=== PATIENT | female | born 1970 | race Caucasian/White ===

== ENCOUNTER 2016-09-01 00:49 | Inpatient (IN) | payer OTHER ==
[~2016-09-01] VITALS: Ht 152.4 cm; Wt 177.3 kg
[~2016-09-01 00:49] MED LIST: 24 HOUR ALLER15.8 ML BOTH NARES; ADVAIR 500/501 DISK IH; ALBUTEROL SULF8.5 GM IH; ALBUTEROL17 GM IH; AMITRIPTYLINE H50 MG PO; AMOX TR-K CLV1 EAC4 PO; ASPIR 8181 M1 PO; ASPIRIN325 MG PO; ATORVASTATIN CA40 MG PO; ATROVENT 00.5 MG/2.5 IH; AUGMENTIN875 MG PO; AZITHROMYCIN500 M1 PO; BETIMOL 0.100 DROP/5 BOTH EYES; BISAC-EVAC10 MG PR; BRILINTA90 MG PO; BUSPAR10 MG PO; BUSPIRONE HCL10 MG PO; Bactroban Nasal Oint BOTH NARES; CEFTIN500 MG PO; CEFUROXIME500 MG PO; COUMADIN PO; COUMADIN1 MG; COUMADIN1 MG PO; COUMADIN2 MG PO; COUMADIN4 MG PO; COUMADIN5 MG PO; COUMADIN6 MG PO; COUMADIN7.5 MG PO; CRANBERRY 4001 EAC1 PO; CRANBERRY250 MG PO; CRANBERRY300 MG PO; CRANBERRY500 M2 PO; CRANBERRY500 MG PO; Coumadin Daily Dose PO; DAILY VALUE1 EACH PO; DAILY VITAMIN1 EAC8 PO; DAILY VITE1 EAC1 PO; DELTASONE20 M1 PO; DIAZEPAM2 MG PO; DUONEB 2.5-0.5 M3 ML AEROSOL; DUONEB 2.5-0.5 M3 ML IH; EFFEXOR XR PO; EFFEXOR XR150 MG PO; EFFEXOR25 MG PO; ELAVIL50 MG PO; ENDOCET 5-3251 EACH PO; EYE DROPS BOTH EYES; Elavil PO; FISH OIL 1,0001 EAC7 PO; FLEET ENEMA-AD118 ML PR; FLONASE16 G1 BOTH NARES; FLONASE16 GM NS; FLOVENT 11120 INHALA IH; FLOVENT 11120 INHALA NS; FLUTICASONE NS; FUROSEMIDE40 MG PO; GABAPENTIN300 MG PO; GLIPIZIDE XL10 MG PO; GLIPIZIDE10 MG PO; GLIPIZIDE5 MG; GLUCOTROL XL10 MG PO; GLUCOTROL5 MG PO; Glucophage PO; IMMODIUM AD PO; IMODIUM A-1 MG/7.5 M PO; IMODIUM A-D2 MG PO; JANUVIA25 M1 PO; K-DUR20 MEQ PO; K-Dur PO; K-Lor,Klor-Con PO; KLOR-CON 1010 ME1 PO; KLOR-CON M2020 MEQ PO; Keflex PO; LASIX40 MG PO; LASIX80 MG PO; LATANOPROST2.5 ML BOTH EYES; LEVEMIR100 UNIT/2 SC; LEVOTHROID200 MCG PO; LEVOTHYROXINE200 MC1 PO; LO-DOSE ASPIRIN81 M1 PO; LOPRESSOR25 MG PO; LOSARTAN POTASS25 MG PO; LOVENOX100 MG/1 M SC; LOVENOX40 MG/0.4 SC; LOVENOX80 MG/0.8 SC; Lasix PO; Levothroid,Synthroid PO; MEGACE20 MG PO; MEGACE40 M1 PO; MEGESTROL ACETA20 MG PO; MEGESTROL ACETA40 MG PO; MILK OF MAGN PO; MOBIC7.5 MG PO; MOTRIN800 MG PO; MULTI-VITAMIN1 EAC4 PO; MULTIVITAMIN PO; MULTIVITAMIN1 EAC2 PO; Megace PO; Motrin PO; NAPROSYN500 MG PO; NAPROXEN500 MG PO; NEOSPORIN + P28.3 GM TP; NEURONTIN300 MG PO; NEURONTIN400 MG PO; NOVOLOG PE100 UNITS/ SC; OMEPRAZOLE20 MG PO; OMEPRAZOLE40 M1 PO; OMNICEF300 MG PO; OXYCODONE-ACET1 EACH PO; PERCOCET 5/31 TABLET PO; PREDNISONE10 MG PO; PREDNISONE20 MG PO; PREDNISONE50 MG PO; PRILOSEC20 MG PO; PRILOSEC40 MG PO; PROAIR HFA8.5 GM IH; PROVENTIL HFA6.7 GM IH; PROVENTIL,2.5 MG/0.5 IH; PROVENTIL,2.5 MG/3 M IH; PROVENTIL2.5 MG/3 M IH; Percocet 5/325,Endoc PO; PriLOSEC PO; Proventil,Ventolin H IH; QUETIAPINE FUMA50 MG PO; REQUIP2 MG PO; REQUIP5 MG; Requip PO; ST. JOSEPH ASPI81 MG PO; SUPER B-50 COM1 EACH PO; SYNTHROID200 MCG PO; THERAGRAN1 TABLET PO; TIMOLOL 0.5%; TIMOLOL 0.5% BOTH EYES; TOPAMAX100 MG PO; TOPAMAX25 MG PO; TOPIRAMATE100 MG PO; Topamax PO; Tylenol Regular Stre PO; VALIUM2 MG PO; VALIUM5 MG PO; VENLAFAXINE HC150 M1 PO; VENTOLIN HFA18 GM IH; VITAMIN C250 MG PO; WARFARIN SODIUM1 MG PO; WARFARIN SODIUM5 MG PO; XALATAN2.5 ML BOTH EYES; ZITHROMAX Z-PA250 MG PO; predniSONE PO
[2016-09-01 02:22] LABS: HEMATOCRIT 39.7 % (36.0-46.0); MCH 28.4 PG (29.0-34.0); MCHC 30.7 G/DL (30.0-36.0); MCV 92.5 FL (83-99); MEAN PLAT.VOLUME 10.5 uM^3 (9.5-12.4); PLATELET COUNT 290 K/uL (156-360); RBC DIS.WIDTH-CV 14.3 % (11.8-14.6); RBC DIS.WIDTH-SD 46.5 % (39-53); RED BLOOD COUNT 4.29 M/uL (3.80-5.20); WHITE BLOOD COUNT 13.3 K/uL (4.1-10.2)
[2016-09-01 02:28] LABS: CHLORIDE 94 mEq/L (99-109); POTASSIUM 3.9 mEq/L (3.7-5.4); SODIUM 141 mEq/L (136-147)
[2016-09-01 02:29] LABS: GLUCOSE 205 mg/dL (70-99)
[2016-09-01 02:31] LABS: ANION GAP 12 MEQ/L (2-14)
[2016-09-01 02:33] LABS: GFR ESTIMATE (CALCULATED) > 59 mL/min/
[2016-09-01 02:34] LABS: UREA NITROGEN (BUN) 12 mg/dL (9-23)
[2016-09-01 02:37] LABS: INTER. NORMALIZED RATIO 6.1; PROTHROMBIN TIME 65.3 (9.2-11.2); PTT 59.2 (25-32)
[2016-09-01 02:39] LABS: TROP-I INTERPRETATION NEGATIVE; TROPONIN-I < 0.01 ng/mL (0.0-0.30)
[2016-09-01 02:41] LABS: QUANTITATIVE HCG < 4.0 MIU/ML
[2016-09-01 07:27] LABS: EOSINOPHIL (%) 0.3 % (0-5); HEMATOCRIT 37.6 % (36.0-46.0); IMMATURE GRANULOCYTE (%) 0.5 % (0.0-0.7); IMMATURE GRANULOCYTE COUNT 0.6 K/uL; LYMPHOCYTE COUNT 1.6 K/uL (1.0-2.8); MCH 28.3 PG (29.0-34.0); MCHC 30.6 G/DL (30.0-36.0); MCV 92.4 FL (83-99); MONOCYTE (%) 6.4 % (3-12); MONOCYTE COUNT 0.8 K/uL (0-0.8); NEUTROPHIL (%) 80.3 % (45-76); NEUTROPHIL COUNT 10.2 K/uL (1.8-6.4); PLATELET COUNT 250 K/uL (156-360); RBC DIS.WIDTH-CV 14.5 % (11.8-14.6); RBC DIS.WIDTH-SD 47.2 % (39-53); RED BLOOD COUNT 4.07 M/uL (3.80-5.20); WHITE BLOOD COUNT 12.6 K/uL (4.1-10.2)
[2016-09-01 08:11] LABS: ANION GAP 9 MEQ/L (2-14); CHLORIDE 97 MEQ/L (99-109); POTASSIUM 4.5 MEQ/L (3.7-5.4); SAMPLE HEMOLYSIS CHECK 2; SAMPLE ICTERIC CHECK 0; SAMPLE LIPEMIA CHECK 0; SODIUM 139 MEQ/L (136-147); TOTAL BILIRUBIN 0.4 MG/DL (0.0-1.0)
[2016-09-01 08:17] LABS: ALKALINE PHOSPHATASE 89 IU/L (3-129); GFR ESTIMATE (CALCULATED) > 59 mL/min/; GLUCOSE 212 mg/dL (70-99); UREA NITROGEN (BUN) 13 mg/dL (9-23)
[2016-09-01 08:32] LABS: POINT-OF-CARE METER ID UU13113807
[2016-09-01] MEDS ORDERED: ATROVENT 00.5 MG/2.5 IH (11:32)
[2016-09-01 11:46] VITALS: BP 98/54
[2016-09-01 11:48] LABS: POINT-OF-CARE METER ID UU13113807
[2016-09-01 15:53] VITALS: BP 104/64
[2016-09-01 20:13] LABS: POINT-OF-CARE METER ID UU13113807
[2016-09-01 21:24] VITALS: BP 101/58
[2016-09-02] VITALS (11 sets, daily range): BP systolic 82–163; BP diastolic 48–89
[2016-09-02 01:17] LABS: INFLUENZA A VIRAL ANTIGEN NEGATIVE; INFLUENZA B VIRAL ANTIGEN NEGATIVE
[2016-09-02 06:58] LABS: PROTHROMBIN TIME 69.2 (9.2-11.2)
[2016-09-02 07:22] LABS: INTER. NORMALIZED RATIO 6.4
[2016-09-02 08:11] LABS: POINT-OF-CARE METER ID UU13113807
[2016-09-02 11:43] LABS: POINT-OF-CARE METER ID UU13113807
[2016-09-02 17:13] LABS: POINT-OF-CARE METER ID UU13113807
[2016-09-03] VITALS (7 sets, daily range): BP systolic 99–144; BP diastolic 50–70
[2016-09-03 02:09] LABS: POINT-OF-CARE METER ID UU13113807
[2016-09-03 06:43] LABS: POINT-OF-CARE METER ID UU13113807
[2016-09-03 06:51] LABS: HEMATOCRIT 32.7 % (36.0-46.0); MCH 27.8 PG (29.0-34.0); MCHC 30.3 G/DL (30.0-36.0); MCV 91.9 FL (83-99); MEAN PLAT.VOLUME 10.1 uM^3 (9.5-12.4); PLATELET COUNT 269 K/uL (156-360); RBC DIS.WIDTH-CV 14.4 % (11.8-14.6); RED BLOOD COUNT 3.56 M/uL (3.80-5.20); WHITE BLOOD COUNT 11.8 K/uL (4.1-10.2)
[2016-09-03 07:03] LABS: INTER. NORMALIZED RATIO 3.9; PROTHROMBIN TIME 41.7 (9.2-11.2)
[2016-09-03 07:18] LABS: TROP-I INTERPRETATION NEGATIVE; TROPONIN-I < 0.01 ng/mL (0.0-0.30)
[2016-09-03 07:42] LABS: POINT-OF-CARE METER ID UU13113807
[2016-09-03 07:43] LABS: ALKALINE PHOSPHATASE 63 IU/L (3-129); ANION GAP 5 MEQ/L (2-14); CHLORIDE 101 MEQ/L (99-109); GFR ESTIMATE (CALCULATED) > 59 mL/min/; GLUCOSE 307 mg/dL (70-99); POTASSIUM 4.3 MEQ/L (3.7-5.4); SAMPLE HEMOLYSIS CHECK 0; SAMPLE ICTERIC CHECK 0; SAMPLE LIPEMIA CHECK 0; SODIUM 140 MEQ/L (136-147)
[2016-09-03 07:44] LABS: TOTAL BILIRUBIN 0.2 MG/DL (0.0-1.0); UREA NITROGEN (BUN) 23 mg/dL (9-23)
[2016-09-03 09:34] LABS: BASE EXCESS 9.7 mEq/L (-3 to +3); BICARBONATE 36.7 mEq/L (22-26); CARBOXY HGB 1.6 % (0-5); METHEMOGLOBIN 1.5 % (0-1.5); PO2 68 mm Hg (80-100)
[2016-09-03 09:35] LABS: COMMENTS - BLOOD GASES +C; DEVICE HFNC; O2 FLOW 8 L/MIN; PCO2 62 mm Hg (35-45); SITE LR +A; TOTAL RESP RATE 24 resp/min; pH 7.38 (7.35-7.45)
[2016-09-03 12:27] LABS: POINT-OF-CARE METER ID UU14149396
[2016-09-03 16:12] LABS: POINT-OF-CARE METER ID UU13113807
[2016-09-03 16:14] LABS: POINT-OF-CARE METER ID UU13113807
[2016-09-03 16:51] LABS: POINT-OF-CARE METER ID UU13113807
[2016-09-04] VITALS (7 sets, daily range): BP systolic 112–147; BP diastolic 54–64
[2016-09-04 03:37] LABS: POINT-OF-CARE METER ID UU14149396
[2016-09-04 08:31] LABS: POINT-OF-CARE METER ID UU13113807
[2016-09-04 09:49] LABS: INTER. NORMALIZED RATIO 2.5
[2016-09-04 12:07] LABS: POINT-OF-CARE METER ID UU14149398
[2016-09-04 16:26] LABS: POINT-OF-CARE METER ID UU14149398
[2016-09-04 22:21] LABS: POINT-OF-CARE METER ID UU14149398
[2016-09-05 00:15] VITALS: BP 101/62
[2016-09-05 03:10] VITALS: BP 129/60
[2016-09-05 04:50] LABS: INTER. NORMALIZED RATIO 1.7; PROTHROMBIN TIME 17.7 (9.2-11.2)
[2016-09-05 04:55] LABS: POINT-OF-CARE METER ID UU14149398
[2016-09-05 06:57] LABS: HEMATOCRIT 36.5 % (36.0-46.0); MCH 27.8 PG (29.0-34.0); MCHC 30.4 G/DL (30.0-36.0); MCV 91.5 FL (83-99); MEAN PLAT.VOLUME 10.9 uM^3 (9.5-12.4); PLATELET COUNT 279 K/uL (156-360); RBC DIS.WIDTH-CV 14.6 % (11.8-14.6); RBC DIS.WIDTH-SD 48.5 % (39-53); RED BLOOD COUNT 3.99 M/uL (3.80-5.20); WHITE BLOOD COUNT 8.7 K/uL (4.1-10.2)
[2016-09-05 07:13] LABS: ANION GAP 6 MEQ/L (2-14); CHLORIDE 94 MEQ/L (99-109); GFR ESTIMATE (CALCULATED) > 59 mL/min/; GLUCOSE 367 mg/dL (70-99); POTASSIUM 4.7 MEQ/L (3.7-5.4); SAMPLE HEMOLYSIS CHECK 0; SAMPLE ICTERIC CHECK 0; SAMPLE LIPEMIA CHECK 0; SODIUM 138 MEQ/L (136-147); UREA NITROGEN (BUN) 27 mg/dL (9-23)
[2016-09-05 08:47] LABS: POINT-OF-CARE METER ID UU14149398
[2016-09-05 09:15] VITALS: BP 162/67
[2016-09-05 12:42] LABS: POINT-OF-CARE METER ID UU14149398
[2016-09-05 12:54] VITALS: BP 131/70
[2016-09-05] MEDS ORDERED: DELTASONE20 M1 PO (16:15)
[2016-09-05] MEDS ORDERED: TRAMADOL HCL50 MG PO (16:15)
[2016-09-05] MEDS ORDERED: CEFDINIR300 MG PO (16:15)
[2016-09-05 16:43] LABS: POINT-OF-CARE METER ID UU14149398
[2016-09-05 17:04] VITALS: BP 111/55
[2016-09-05 19:55] VITALS: BP 135/65
== END 2016-09-05 22:18 | disposition home health service (06) | DRG 190 ==
LOC: EME 00:49 → 4SOUTH 03:07 → EDOF 03:07 → 4SOUTH 07:51
PROVIDERS: Emergency Medicine; Internal Medicine
DX: J44.0 Chronic obstructive pulmonary disease with (acute) lower respiratory infection (principal); J18.9 Pneumonia, unspecified organism; J44.1 Chronic obstructive pulmonary disease with (acute) exacerbation; E66.2 Morbid (severe) obesity with alveolar hypoventilation; Z68.45 Body mass index [BMI] 70 or greater, adult; I50.9 Heart failure, unspecified; R26.2 Difficulty in walking, not elsewhere classified; F31.9 Bipolar disorder, unspecified; R79.1 Abnormal coagulation profile; I10 Essential (primary) hypertension; I25.10 Atherosclerotic heart disease of native coronary artery without angina pectoris; I95.9 Hypotension, unspecified; J45.909 Unspecified asthma, uncomplicated; E03.9 Hypothyroidism, unspecified; E11.65 Type 2 diabetes mellitus with hyperglycemia; I25.2 Old myocardial infarction; K21.9 Gastro-esophageal reflux disease without esophagitis; E78.00 Pure hypercholesterolemia, unspecified; G89.29 Other chronic pain; M54.5 Low back pain; F41.9 Anxiety disorder, unspecified; F17.210 Nicotine dependence, cigarettes, uncomplicated; Z99.81 Dependence on supplemental oxygen; Z86.711 Personal history of pulmonary embolism; Z79.01 Long term (current) use of anticoagulants; Z95.5 Presence of coronary angioplasty implant and graft; Z79.891 Long term (current) use of opiate analgesic; Z79.84 Long term (current) use of oral hypoglycemic drugs
CPT/HCPCS: 36600; 71010; 71020; 80048; 80053; 82803; 82948; 83605; 84484; 84702; 85025; 85027; 85610; 85730; 87040; 87070; 87205; 87449; 87502; 93005; 93306; 94010; 94640; 94640 76; 94760; 94799; 99202; 99281; 99285; J0456; J0692; J1815; J2270; J2405; J2930; J7030; J7040; J7050; J7512

== ENCOUNTER 2016-09-29 10:15 | Inpatient (IN) | payer OTHER ==
[~2016-09-29] VITALS: Ht 149.9 cm; Wt 173.9 kg
[~2016-09-29 10:15] MED LIST changes: +CEFDINIR300 MG PO; +TRAMADOL HCL50 MG PO
[2016-09-29 11:30] LABS: EOSINOPHIL (%) 0.9 % (0-5); EOSINOPHIL COUNT 0.1 K/uL (0-0.3); HEMATOCRIT 40.7 % (36.0-46.0); IMMATURE GRANULOCYTE (%) 0.6 % (0.0-0.7); IMMATURE GRANULOCYTE COUNT 0.5 K/uL; LYMPHOCYTE COUNT 1.9 K/uL (1.0-2.8); MCH 28.4 PG (29.0-34.0); MCV 94.7 FL (83-99); MONOCYTE (%) 8.3 % (3-12); MONOCYTE COUNT 0.7 K/uL (0-0.8); NEUTROPHIL COUNT 6.1 K/uL (1.8-6.4); RBC DIS.WIDTH-CV 15.6 % (11.8-14.6); RBC DIS.WIDTH-SD 51.5 % (39-53); WHITE BLOOD COUNT 8.8 K/uL (4.1-10.2)
[2016-09-29 13:10] LABS: MEAN PLAT.VOLUME 10.7 uM^3 (9.5-12.4); PLAT.SUFFICIENCY ADEQUATE; PLATELET COUNT 271 K/uL (156-360); USER ID TLW
[2016-09-29 13:36] LABS: CHLORIDE 100 mEq/L (99-109); INTER. NORMALIZED RATIO 2.3; POTASSIUM 4.7 mEq/L (3.7-5.4); PTT 37.8 (25-32); SODIUM 144 mEq/L (136-147)
[2016-09-29 13:37] LABS: GLUCOSE 216 mg/dL (70-99)
[2016-09-29 13:39] LABS: ANION GAP 10 MEQ/L (2-14)
[2016-09-29 13:41] LABS: GFR ESTIMATE (CALCULATED) > 59 mL/min/
[2016-09-29 13:42] LABS: UREA NITROGEN (BUN) 11 mg/dL (9-23)
[2016-09-29 13:48] LABS: PROTHROMBIN TIME 23.8 (9.2-11.2)
[2016-09-29 13:50] LABS: TROP-I INTERPRETATION NEGATIVE; TROPONIN-I < 0.01 ng/mL (0.0-0.30)
[2016-09-29] MEDS ORDERED: RANITIDINE HCL300 MG PO (14:44)
[2016-09-29] MEDS ORDERED: WARFARIN SODIUM1 MG PO (14:45)
[2016-09-29] MEDS ORDERED: LOSARTAN POTASS25 MG PO (14:45)
[2016-09-29] MEDS ORDERED: TRULICITY1.5 MG/0.5 SC (14:46)
[2016-09-29] MEDS ORDERED: TRULICITY0.75 MG/0. SC (14:47)
[2016-09-29 18:45] VITALS: BP 105/53
[2016-09-29 19:00] VITALS: BP 118/65
[2016-09-29 22:50] VITALS: BP 114/60
[2016-09-29 23:12] LABS: POINT-OF-CARE METER ID UU14174216
[2016-09-30 03:15] VITALS: BP 93/52
[2016-09-30 06:09] LABS: POINT-OF-CARE METER ID UU13113781
[2016-09-30 06:55] LABS: INTER. NORMALIZED RATIO 2.9; PROTHROMBIN TIME 30.1 (9.2-11.2)
[2016-09-30 06:58] LABS: HEMATOCRIT 35.5 % (36.0-46.0); MCH 28.5 PG (29.0-34.0); MEAN PLAT.VOLUME 10.9 uM^3 (9.5-12.4); PLATELET COUNT 276 K/uL (156-360); RBC DIS.WIDTH-CV 15.2 % (11.8-14.6); RED BLOOD COUNT 3.86 M/uL (3.80-5.20); WHITE BLOOD COUNT 7.3 K/uL (4.1-10.2)
[2016-09-30 07:35] LABS: ALKALINE PHOSPHATASE 80 IU/L (3-129); ANION GAP 10 MEQ/L (2-14); CHLORIDE 99 MEQ/L (99-109); GFR ESTIMATE (CALCULATED) > 59 mL/min/; GLUCOSE 272 mg/dL (70-99); POTASSIUM 4.7 MEQ/L (3.7-5.4); SAMPLE HEMOLYSIS CHECK 0; SAMPLE ICTERIC CHECK 0; SAMPLE LIPEMIA CHECK 0; SODIUM 141 MEQ/L (136-147); TOTAL BILIRUBIN 0.3 MG/DL (0.0-1.0); UREA NITROGEN (BUN) 16 mg/dL (9-23)
[2016-09-30 07:50] VITALS: BP 87/61
[2016-09-30 09:14] LABS: BASE EXCESS 9.6 mEq/L (-3 to +3); BICARBONATE 36.3 mEq/L (22-26); CARBOXY HGB 3.1 % (0-5); COMMENTS - BLOOD GASES A+C+; METHEMOGLOBIN 0.6 % (0-1.5); PCO2 60 mm Hg (35-45); PO2 59 mm Hg (80-100); SITE LR; pH 7.39 (7.35-7.45)
[2016-09-30 09:15] LABS: DEVICE HFNC; O2 FLOW 12 L/MIN; TOTAL RESP RATE 18 resp/min
[2016-09-30 10:20] LABS: POINT-OF-CARE METER ID UU13113781
[2016-09-30 11:56] VITALS: BP 102/51
[2016-09-30 14:17] LABS: POINT-OF-CARE METER ID UU13113781
[2016-09-30 16:16] VITALS: BP 108/53
[2016-09-30 17:09] LABS: POINT-OF-CARE METER ID UU13113781
[2016-09-30 19:35] VITALS: BP 110/58
[2016-10-01] VITALS (7 sets, daily range): BP systolic 108–143; BP diastolic 57–67
[2016-10-01 02:25] LABS: POINT-OF-CARE METER ID UU13113781
[2016-10-01 05:49] LABS: POINT-OF-CARE METER ID UU13113781
[2016-10-01 06:59] LABS: INTER. NORMALIZED RATIO 3.5; PROTHROMBIN TIME 37.5 (9.2-11.2)
[2016-10-01 07:05] LABS: ALKALINE PHOSPHATASE 68 IU/L (3-129); ANION GAP 7 MEQ/L (2-14); CHLORIDE 98 MEQ/L (99-109); GFR ESTIMATE (CALCULATED) 58 mL/min/; GLUCOSE 334 mg/dL (70-99); POTASSIUM 4.4 MEQ/L (3.7-5.4); SAMPLE HEMOLYSIS CHECK 0; SAMPLE ICTERIC CHECK 0; SAMPLE LIPEMIA CHECK 0; SODIUM 139 MEQ/L (136-147); TOTAL BILIRUBIN 0.3 MG/DL (0.0-1.0); UREA NITROGEN (BUN) 23 mg/dL (9-23)
[2016-10-01 07:59] LABS: HEMATOCRIT 36.5 % (36.0-46.0); MCH 28.5 PG (29.0-34.0); MCV 91.9 FL (83-99); PLATELET COUNT 282 K/uL (156-360); RBC DIS.WIDTH-CV 15.3 % (11.8-14.6); RBC DIS.WIDTH-SD 51.7 % (39-53); RED BLOOD COUNT 3.97 M/uL (3.80-5.20)
[2016-10-01 08:03] LABS: POINT-OF-CARE METER ID UU14174216; POINT-OF-CARE USER ID ENVKC36
[2016-10-01 08:07] LABS: WHITE BLOOD COUNT 10.6 K/uL (4.1-10.2)
[2016-10-01 11:58] LABS: POINT-OF-CARE METER ID UU14174216; POINT-OF-CARE USER ID ENVKC36
[2016-10-01 16:48] LABS: POINT-OF-CARE METER ID UU14174216; POINT-OF-CARE USER ID ENVKC36
[2016-10-01 20:17] LABS: POINT-OF-CARE METER ID UU14174216
[2016-10-02 02:40] LABS: POINT-OF-CARE METER ID UU13113781
[2016-10-02 03:00] VITALS: BP 128/67
[2016-10-02 06:45] LABS: HEMATOCRIT 35.4 % (36.0-46.0); MCH 29.1 PG (29.0-34.0); MCHC 31.6 G/DL (30.0-36.0); MCV 91.9 FL (83-99); MEAN PLAT.VOLUME 10.8 uM^3 (9.5-12.4); PLATELET COUNT 246 K/uL (156-360); RBC DIS.WIDTH-CV 15.4 % (11.8-14.6); RBC DIS.WIDTH-SD 51.7 % (39-53); RED BLOOD COUNT 3.85 M/uL (3.80-5.20); WHITE BLOOD COUNT 10.1 K/uL (4.1-10.2)
[2016-10-02 07:11] LABS: ALKALINE PHOSPHATASE 63 IU/L (3-129); ANION GAP 9 MEQ/L (2-14); CHLORIDE 97 MEQ/L (99-109); GFR ESTIMATE (CALCULATED) 58 mL/min/; GLUCOSE 322 mg/dL (70-99); POTASSIUM 4.1 MEQ/L (3.7-5.4); SAMPLE HEMOLYSIS CHECK 0; SAMPLE ICTERIC CHECK 0; SAMPLE LIPEMIA CHECK 0; SODIUM 138 MEQ/L (136-147); TOTAL BILIRUBIN 0.3 MG/DL (0.0-1.0); UREA NITROGEN (BUN) 27 mg/dL (9-23)
[2016-10-02 07:14] LABS: INTER. NORMALIZED RATIO 4.1; PROTHROMBIN TIME 43.5 (9.2-11.2)
[2016-10-02 08:20] VITALS: BP 113/65
[2016-10-02 12:00] VITALS: BP 100/66
[2016-10-02] MEDS ORDERED: PREDNISONE20 MG PO (13:53)
[2016-10-05 11:50] LABS: POINT-OF-CARE METER ID UU13113781
== END 2016-10-02 16:43 | disposition home or self-care (01) | DRG 190 ==
LOC: EME → EDBD 10:15 → EME 10:15 → EDOF 15:43 → 4EAST 15:43
PROVIDERS: Emergency Medicine; Internal Medicine
DX: J44.1 Chronic obstructive pulmonary disease with (acute) exacerbation (principal); J96.20 Acute and chronic respiratory failure, unspecified whether with hypoxia or hypercapnia; E66.2 Morbid (severe) obesity with alveolar hypoventilation; J44.0 Chronic obstructive pulmonary disease with (acute) lower respiratory infection; J20.9 Acute bronchitis, unspecified; E11.9 Type 2 diabetes mellitus without complications; I11.0 Hypertensive heart disease with heart failure; I50.9 Heart failure, unspecified; I25.10 Atherosclerotic heart disease of native coronary artery without angina pectoris; K21.9 Gastro-esophageal reflux disease without esophagitis; F41.9 Anxiety disorder, unspecified; F32.9 Major depressive disorder, single episode, unspecified; E78.5 Hyperlipidemia, unspecified; E03.9 Hypothyroidism, unspecified; J45.909 Unspecified asthma, uncomplicated; F17.210 Nicotine dependence, cigarettes, uncomplicated; Z68.45 Body mass index [BMI] 70 or greater, adult; I25.2 Old myocardial infarction; Z86.711 Personal history of pulmonary embolism; Z79.01 Long term (current) use of anticoagulants; Z91.14 Patient's other noncompliance with medication regimen; Z79.4 Long term (current) use of insulin; Z99.81 Dependence on supplemental oxygen
CPT/HCPCS: 36600; 71010; 80048; 80053; 82803; 82948; 83880; 84484; 85025; 85027; 85610; 85730; 93005; 94640; 94640 76; 94799; 99202; 99281; 99284; J1100; J1815; J2930; J7512; J7644

== ENCOUNTER 2016-11-20 09:31 | Inpatient (IN) | payer OTHER ==
[~2016-11-20] VITALS: Ht 149.9 cm; Wt 281.0 kg
[~2016-11-20 09:31] MED LIST changes: +RANITIDINE HCL300 MG PO; +TRULICITY0.75 MG/0. SC; +TRULICITY1.5 MG/0.5 SC
[2016-11-20 12:19] LABS: HEMATOCRIT 37.8 % (36.0-46.0); MCH 28.9 PG (29.0-34.0); MCHC 29.9 G/DL (30.0-36.0); MCV 96.7 FL (83-99); MEAN PLAT.VOLUME 10.8 uM^3 (9.5-12.4); PLATELET COUNT 263 K/uL (156-360); RBC DIS.WIDTH-CV 15.1 % (11.8-14.6); RBC DIS.WIDTH-SD 54.1 % (39-53); RED BLOOD COUNT 3.91 M/uL (3.80-5.20); WHITE BLOOD COUNT 10.1 K/uL (4.1-10.2)
[2016-11-20 12:35] LABS: CHLORIDE 102 mEq/L (99-109); POTASSIUM 4.1 mEq/L (3.7-5.4); SODIUM 142 mEq/L (136-147)
[2016-11-20 12:36] LABS: GLUCOSE 144 mg/dL (70-99)
[2016-11-20 12:38] LABS: ANION GAP 8 MEQ/L (2-14)
[2016-11-20 12:40] LABS: GFR ESTIMATE (CALCULATED) > 59 mL/min/
[2016-11-20 12:41] LABS: UREA NITROGEN (BUN) 8 mg/dL (9-23)
[2016-11-20 13:43] LABS: ADD MIUA? YES; BILIRUBIN NEGATIVE; BLOOD NEGATIVE; COLOR AMBER ((YELLOW)); GLUCOSE (STRIP) NEGATIVE; KETONES NEGATIVE; LEUKOCYTES NEGATIVE; NITRITE NEGATIVE; PROTEIN (STRIP) 30; UROBILINOGEN 0.2 MG/DL (0.2-1.0)
[2016-11-20 14:25] LABS: BACTERIA NONE SEEN /HPF; EPITHELIAL CELLS RARE /HPF; HYALINE CASTS 15-20 /LPF; MUCUS 4+ /LPF; RED BLOOD CELLS 0-5 /HPF (0-5); UCUL ADDED? NO; WHITE BLOOD CELLS 0-5 /HPF (0-5)
[2016-11-20 16:45] LABS: INTER. NORMALIZED RATIO 1.9; PTT 32.1 (25-32)
[2016-11-20 16:52] LABS: PROTHROMBIN TIME 19.8 (9.2-11.2)
[2016-11-20 19:55] VITALS: BP 103/56
[2016-11-20 21:47] LABS: POINT-OF-CARE USER ID 608261329
[2016-11-20] MEDS ORDERED: EFFEXOR75 MG PO (22:32)
[2016-11-20 22:44] VITALS: BP 108/53
[2016-11-21 06:49] LABS: HEMATOCRIT 34.1 % (36.0-46.0); MCH 29.4 PG (29.0-34.0); MCHC 31.1 G/DL (30.0-36.0); MCV 94.7 FL (83-99); MEAN PLAT.VOLUME 10.9 uM^3 (9.5-12.4); PLATELET COUNT 242 K/uL (156-360); RBC DIS.WIDTH-CV 14.7 % (11.8-14.6); RBC DIS.WIDTH-SD 51.4 % (39-53); WHITE BLOOD COUNT 7.2 K/uL (4.1-10.2)
[2016-11-21 07:01] LABS: INTER. NORMALIZED RATIO 2.1; PROTHROMBIN TIME 22.3 (9.2-11.2)
[2016-11-21 07:08] LABS: ANION GAP 6 MEQ/L (2-14); CHLORIDE 102 MEQ/L (99-109); GFR ESTIMATE (CALCULATED) > 59 mL/min/; GLUCOSE 211 mg/dL (70-99); POTASSIUM 4.1 MEQ/L (3.7-5.4); SAMPLE HEMOLYSIS CHECK 0; SAMPLE ICTERIC CHECK 0; SAMPLE LIPEMIA CHECK 0; SODIUM 140 MEQ/L (136-147); UREA NITROGEN (BUN) 11 mg/dL (9-23)
[2016-11-21 07:50] VITALS: BP 133/69
[2016-11-21 09:00] VITALS: BP 116/57
[2016-11-21 15:47] VITALS: BP 111/59
[2016-11-21 15:51] LABS: POINT-OF-CARE METER ID UU13113725
[2016-11-21] MEDS ORDERED: ADVAIR 500/501 DISK IH (18:29)
[2016-11-21] MEDS ORDERED: LEVO-T50 MCG PO (18:32)
[2016-11-21] MEDS ORDERED: SEROQUEL50 MG PO (18:46)
[2016-11-21] MEDS ORDERED: FUROSEMIDE40 MG PO (18:47)
[2016-11-21] MEDS ORDERED: WARFARIN SODIUM5 MG PO (18:52)
[2016-11-21 23:12] VITALS: BP 126/59
[2016-11-22 06:24] LABS: INTER. NORMALIZED RATIO 2.7; PROTHROMBIN TIME 28.3 (9.2-11.2)
[2016-11-22 06:28] LABS: MCH 28.7 PG (29.0-34.0); MCHC 30.9 G/DL (30.0-36.0); MCV 93.1 FL (83-99); PLATELET COUNT 256 K/uL (156-360); RBC DIS.WIDTH-CV 14.8 % (11.8-14.6); RBC DIS.WIDTH-SD 50.4 % (39-53); RED BLOOD COUNT 3.76 M/uL (3.80-5.20)
[2016-11-22 06:31] LABS: WHITE BLOOD COUNT 9.4 K/uL (4.1-10.2)
[2016-11-22 06:42] LABS: ALKALINE PHOSPHATASE 64 IU/L (3-129); ANION GAP 7 MEQ/L (2-14); CHLORIDE 99 MEQ/L (99-109); GFR ESTIMATE (CALCULATED) > 59 mL/min/; GLUCOSE 194 mg/dL (70-99); POTASSIUM 3.8 MEQ/L (3.7-5.4); SAMPLE HEMOLYSIS CHECK 0; SAMPLE ICTERIC CHECK 0; SAMPLE LIPEMIA CHECK 0; SODIUM 141 MEQ/L (136-147); TOTAL BILIRUBIN 0.2 MG/DL (0.0-1.0); UREA NITROGEN (BUN) 13 mg/dL (9-23)
[2016-11-22 07:26] VITALS: BP 105/58
[2016-11-22] MEDS ORDERED: WARFARIN SODIUM1 MG PO (08:08)
[2016-11-22] MEDS ORDERED: CEFDINIR300 MG PO (08:09)
[2016-11-22] MEDS ORDERED: PREDNISONE20 MG PO (08:10)
[2016-11-22 11:40] LABS: POINT-OF-CARE METER ID UU13113725
== END 2016-11-22 13:20 | disposition home health service (06) | DRG 190 ==
LOC: EME 09:31 → EDOF 14:52 → 5EAST 16:05 → EDOF 16:05 → 5EAST 19:24
PROVIDERS: Emergency Medicine; Internal Medicine
DX: J44.0 Chronic obstructive pulmonary disease with (acute) lower respiratory infection (principal); J18.9 Pneumonia, unspecified organism; J44.1 Chronic obstructive pulmonary disease with (acute) exacerbation; R04.2 Hemoptysis; E66.01 Morbid (severe) obesity due to excess calories; Z68.45 Body mass index [BMI] 70 or greater, adult; E11.65 Type 2 diabetes mellitus with hyperglycemia; Z99.81 Dependence on supplemental oxygen; I25.10 Atherosclerotic heart disease of native coronary artery without angina pectoris; G47.30 Sleep apnea, unspecified; Z91.19 Patient's noncompliance with other medical treatment and regimen; E03.9 Hypothyroidism, unspecified; K21.9 Gastro-esophageal reflux disease without esophagitis; F32.9 Major depressive disorder, single episode, unspecified; D64.9 Anemia, unspecified; F17.200 Nicotine dependence, unspecified, uncomplicated; Z86.711 Personal history of pulmonary embolism; Z79.01 Long term (current) use of anticoagulants; Z95.5 Presence of coronary angioplasty implant and graft
CPT/HCPCS: 71020; 71275; 80048; 80053; 81003; 82272; 82948; 85027; 85610; 85730; 87040; 93005; 94640; 94640 76; 94760; 94799; 99202; 99281; 99285; J0696; J1815; J2543; J2920; J3370; J7050; J7512; J7644

== ENCOUNTER 2016-12-08 10:16 | Inpatient (IN) | payer OTHER ==
[~2016-12-08] VITALS: Ht 149.9 cm; Wt 169.0 kg
[~2016-12-08 10:16] MED LIST changes: +EFFEXOR75 MG PO; +LEVO-T50 MCG PO; +SEROQUEL50 MG PO
[2016-12-08 11:41] LABS: EOSINOPHIL (%) 0.5 % (0-5); EOSINOPHIL COUNT 0.1 K/uL (0-0.3); HEMATOCRIT 44.2 % (36.0-46.0); IMMATURE GRANULOCYTE (%) 0.5 % (0.0-0.7); IMMATURE GRANULOCYTE COUNT 0.1 K/uL; INSTRUMENT ABS NEUTROPHIL CT 8.9 K/uL; LYMPHOCYTE COUNT 1.1 K/uL (1.0-2.8); MCH 29.3 PG (29.0-34.0); MCHC 30.8 G/DL (30.0-36.0); MCV 95.3 FL (83-99); MEAN PLAT.VOLUME 10.8 uM^3 (9.5-12.4); MONOCYTE (%) 8.7 % (3-12); NEUTROPHIL (%) 80.2 % (45-76); NEUTROPHIL COUNT 8.9 K/uL (1.8-6.4); PLATELET COUNT 249 K/uL (156-360); RBC DIS.WIDTH-CV 14.6 % (11.8-14.6); RBC DIS.WIDTH-SD 51.7 % (39-53); RED BLOOD COUNT 4.64 M/uL (3.80-5.20); WHITE BLOOD COUNT 11.1 K/uL (4.1-10.2)
[2016-12-08 11:47] LABS: CHLORIDE 98 mEq/L (99-109); POTASSIUM 3.7 mEq/L (3.7-5.4); SODIUM 140 mEq/L (136-147)
[2016-12-08 11:50] LABS: GLUCOSE 312 mg/dL (70-99)
[2016-12-08 11:51] LABS: ANION GAP 15 MEQ/L (2-14)
[2016-12-08 11:52] LABS: TOTAL BILIRUBIN 0.6 mg/dL (0.0-1.0)
[2016-12-08 11:53] LABS: ALKALINE PHOSPHATASE 98 IU/L (3-129); GFR ESTIMATE (CALCULATED) 58 mL/min/
[2016-12-08 11:54] LABS: UREA NITROGEN (BUN) 14 mg/dL (9-23)
[2016-12-08 11:56] LABS: ADD MIUA? NO; BILIRUBIN NEGATIVE; BLOOD NEGATIVE; COLOR YELLOW ((YELLOW)); GLUCOSE (STRIP) NEGATIVE; KETONES NEGATIVE; LEUKOCYTES NEGATIVE; NITRITE NEGATIVE; PROTEIN (STRIP) NEGATIVE; SPECIFIC GRAVITY 1.014 (1.000-1.030); UCUL ADDED? NO; UROBILINOGEN 0.2 MG/DL (0.2-1.0)
[2016-12-08 11:59] LABS: TROP-I INTERPRETATION NEGATIVE; TROPONIN-I < 0.01 ng/mL (0.0-0.30)
[2016-12-08 12:29] LABS: INFLUENZA A VIRAL ANTIGEN NEGATIVE; INFLUENZA B VIRAL ANTIGEN NEGATIVE
[2016-12-08] MEDS ORDERED: WARFARIN SODIUM1 MG PO (13:11)
[2016-12-08] MEDS ORDERED: OMEPRAZOLE40 M1 PO (13:13)
[2016-12-08 16:34] LABS: INTER. NORMALIZED RATIO 3.5; PROTHROMBIN TIME 37.6 (9.2-11.2)
[2016-12-08 16:42] VITALS: BP 117/64
[2016-12-08 21:43] VITALS: BP 116/61
[2016-12-08 22:39] VITALS: BP 114/66
[2016-12-09 03:31] VITALS: BP 100/64
[2016-12-09 06:52] LABS: HEMATOCRIT 37.6 % (36.0-46.0); MCH 28.5 PG (29.0-34.0); MCHC 30.1 G/DL (30.0-36.0); MCV 94.9 FL (83-99); PLATELET COUNT 213 K/uL (156-360); RBC DIS.WIDTH-CV 14.6 % (11.8-14.6); RBC DIS.WIDTH-SD 51.6 % (39-53); RED BLOOD COUNT 3.96 M/uL (3.80-5.20); WHITE BLOOD COUNT 6.1 K/uL (4.1-10.2)
[2016-12-09 07:03] LABS: INTER. NORMALIZED RATIO 4.4; PROTHROMBIN TIME 46.6 (9.2-11.2)
[2016-12-09 07:14] VITALS: BP 107/63
[2016-12-09 07:18] LABS: ANION GAP 9 MEQ/L (2-14); CHLORIDE 103 MEQ/L (99-109); GFR ESTIMATE (CALCULATED) > 59 mL/min/; GLUCOSE 374 mg/dL (70-99); POTASSIUM 4.1 MEQ/L (3.7-5.4); SAMPLE HEMOLYSIS CHECK 0; SAMPLE ICTERIC CHECK 0; SAMPLE LIPEMIA CHECK 0; SODIUM 140 MEQ/L (136-147); UREA NITROGEN (BUN) 15 mg/dL (9-23)
[2016-12-09 11:04] LABS: POINT-OF-CARE METER ID UU13113725
[2016-12-09 12:00] VITALS: BP 103/65
[2016-12-09 15:08] VITALS: BP 118/59
[2016-12-09 16:14] LABS: POINT-OF-CARE METER ID UU13113725
[2016-12-09 21:12] LABS: POINT-OF-CARE METER ID UU13113725
[2016-12-09 22:55] VITALS: BP 132/54
[2016-12-10 03:33] VITALS: BP 125/77
[2016-12-10 05:55] LABS: POINT-OF-CARE METER ID UU13113725
[2016-12-10 07:07] VITALS: BP 145/66
[2016-12-10 07:50] LABS: HEMATOCRIT 36.4 % (36.0-46.0); MCH 29.1 PG (29.0-34.0); MCHC 30.5 G/DL (30.0-36.0); MCV 95.3 FL (83-99); MEAN PLAT.VOLUME 11.1 uM^3 (9.5-12.4); PLATELET COUNT 225 K/uL (156-360); RBC DIS.WIDTH-CV 14.7 % (11.8-14.6); RBC DIS.WIDTH-SD 51.4 % (39-53); RED BLOOD COUNT 3.82 M/uL (3.80-5.20)
[2016-12-10 07:53] LABS: WHITE BLOOD COUNT 8.9 K/uL (4.1-10.2)
[2016-12-10 07:57] LABS: ANION GAP 4 MEQ/L (2-14); CHLORIDE 99 MEQ/L (99-109); GFR ESTIMATE (CALCULATED) 58 mL/min/; GLUCOSE 405 mg/dL (70-99); POTASSIUM 4.2 MEQ/L (3.7-5.4); SAMPLE HEMOLYSIS CHECK 0; SAMPLE ICTERIC CHECK 0; SAMPLE LIPEMIA CHECK 0; SODIUM 137 MEQ/L (136-147); UREA NITROGEN (BUN) 20 mg/dL (9-23)
[2016-12-10 08:10] LABS: PROTHROMBIN TIME 58.2 (9.2-11.2)
[2016-12-10 08:23] LABS: INTER. NORMALIZED RATIO 5.4
[2016-12-10 11:44] VITALS: BP 112/64
[2016-12-10 11:59] LABS: POINT-OF-CARE METER ID UU13113725
[2016-12-10 15:25] VITALS: BP 109/61
[2016-12-10 15:39] LABS: POINT-OF-CARE METER ID UU13113725
[2016-12-10 18:59] VITALS: BP 110/56
[2016-12-10 23:24] VITALS: BP 104/64
[2016-12-11 03:32] VITALS: BP 148/56
[2016-12-11 06:14] LABS: MCH 29.4 PG (29.0-34.0); MCHC 31.4 G/DL (30.0-36.0); MCV 93.7 FL (83-99); MEAN PLAT.VOLUME 11.2 uM^3 (9.5-12.4); NRBC (%) 0.2 /100 WBC (0-0); PLATELET COUNT 228 K/uL (156-360); RBC DIS.WIDTH-CV 14.6 % (11.8-14.6); RBC DIS.WIDTH-SD 50.9 % (39-53); RED BLOOD COUNT 3.95 M/uL (3.80-5.20); WHITE BLOOD COUNT 9.3 K/uL (4.1-10.2)
[2016-12-11 06:50] LABS: INTER. NORMALIZED RATIO 3.2
[2016-12-11 06:53] LABS: ANION GAP 8 MEQ/L (2-14); CHLORIDE 99 MEQ/L (99-109); GFR ESTIMATE (CALCULATED) 58 mL/min/; SAMPLE HEMOLYSIS CHECK 0; SAMPLE ICTERIC CHECK 0; SAMPLE LIPEMIA CHECK 0; SODIUM 142 MEQ/L (136-147); UREA NITROGEN (BUN) 24 mg/dL (9-23)
[2016-12-11 06:54] LABS: GLUCOSE 113 mg/dL (70-99); POTASSIUM 3.3 MEQ/L (3.7-5.4)
[2016-12-11 07:18] VITALS: BP 130/96
[2016-12-11 07:41] LABS: POINT-OF-CARE METER ID UU13113725
[2016-12-11] MEDS ORDERED: DOXYCYCLINE HY100 M3 PO (09:38)
[2016-12-11] MEDS ORDERED: PREDNISONE20 MG PO (09:40)
[2016-12-11 11:16] VITALS: BP 148/82
[2016-12-11 11:18] LABS: POINT-OF-CARE METER ID UU13113725
== END 2016-12-11 15:15 | disposition home health service (06) | DRG 191 ==
LOC: EME → EDBD 10:16 → EDOF 14:41 → 5EAST 14:41
PROVIDERS: Emergency Medicine; Internal Medicine
DX: J44.1 Chronic obstructive pulmonary disease with (acute) exacerbation (principal); I95.9 Hypotension, unspecified; Z68.45 Body mass index [BMI] 70 or greater, adult; F33.9 Major depressive disorder, recurrent, unspecified; E66.01 Morbid (severe) obesity due to excess calories; I25.10 Atherosclerotic heart disease of native coronary artery without angina pectoris; E11.9 Type 2 diabetes mellitus without complications; I10 Essential (primary) hypertension; K21.9 Gastro-esophageal reflux disease without esophagitis; F41.9 Anxiety disorder, unspecified; I25.2 Old myocardial infarction; E78.5 Hyperlipidemia, unspecified; E03.9 Hypothyroidism, unspecified; Z86.711 Personal history of pulmonary embolism; Z79.01 Long term (current) use of anticoagulants; R09.02 Hypoxemia; G47.33 Obstructive sleep apnea (adult) (pediatric); J45.909 Unspecified asthma, uncomplicated; F17.210 Nicotine dependence, cigarettes, uncomplicated
CPT/HCPCS: 71020; 80048; 80053; 81003; 82948; 83605; 83880; 84484; 85025; 85027; 85610; 87040; 87070; 87075; 87076; 87185; 87205; 87502; 93005; 94640; 94640 76; 94760; 94799; 99202; 99281; 99285; J1100; J1815; J2543; J2930; J3370; J7030; J7512; J7644

== ENCOUNTER 2016-12-14 21:40 | Inpatient (IN) | payer OTHER ==
[~2016-12-14] VITALS: Ht 149.9 cm; Wt 168.5 kg
[~2016-12-14 21:40] MED LIST changes: +DOXYCYCLINE HY100 M3 PO
[2016-12-14 23:00] LABS: CHLORIDE 98 mEq/L (99-109); SODIUM 139 mEq/L (136-147)
[2016-12-14 23:02] LABS: GLUCOSE 308 mg/dL (70-99)
[2016-12-14 23:04] LABS: ANION GAP 12 MEQ/L (2-14)
[2016-12-14 23:06] LABS: GFR ESTIMATE (CALCULATED) 52 mL/min/
[2016-12-14 23:07] LABS: UREA NITROGEN (BUN) 22 mg/dL (9-23)
[2016-12-14 23:09] LABS: POTASSIUM 4.6 mEq/L (3.7-5.4)
[2016-12-14 23:12] LABS: TROP-I INTERPRETATION NEGATIVE; TROPONIN-I < 0.01 ng/mL (0.0-0.30)
[2016-12-14 23:18] LABS: EOSINOPHIL (%) 0.5 % (0-5); EOSINOPHIL COUNT 0.1 K/uL (0-0.3); HEMATOCRIT 46.1 % (36.0-46.0); IMMATURE GRANULOCYTE (%) 1.7 % (0.0-0.7); IMMATURE GRANULOCYTE COUNT 0.2 K/uL; INSTRUMENT ABS NEUTROPHIL CT 10.4 K/uL; MCH 29.6 PG (29.0-34.0); MCHC 31.7 G/DL (30.0-36.0); MCV 93.5 FL (83-99); MONOCYTE (%) 4.2 % (3-12); MONOCYTE COUNT 0.6 K/uL (0-0.8); NEUTROPHIL (%) 78.6 % (45-76); NEUTROPHIL COUNT 10.4 K/uL (1.8-6.4); NRBC (%) 0.2 /100 WBC (0-0); RBC DIS.WIDTH-CV 14.6 % (11.8-14.6); RBC DIS.WIDTH-SD 50.3 % (39-53)
[2016-12-14 23:22] LABS: RED BLOOD COUNT 4.93 M/uL (3.80-5.20); WHITE BLOOD COUNT 13.2 K/uL (4.1-10.2)
[2016-12-15 00:14] LABS: HEMATOLOGY COMMENT 1 SN; MEAN PLAT.VOLUME 12.3 uM^3 (9.5-12.4); PLAT.SUFFICIENCY ADEQUATE
[2016-12-15 00:16] LABS: PLATELET COUNT 303 K/uL (156-360)
[2016-12-15] MEDS ORDERED: PREDNISONE10 MG PO (01:05)
[2016-12-15 02:51] LABS: POINT-OF-CARE METER ID UU13113702
[2016-12-15] MEDS ORDERED: DOXYCYCLINE HY100 MG PO (02:59)
[2016-12-15 03:25] VITALS: BP 114/77
[2016-12-15 03:26] VITALS: BP 114/77
[2016-12-15 07:09] LABS: HDL CHOLESTEROL 36 MG/DL (Desirable>=50); LDL CHOLESTEROL 72 mg/dL (Desirable<100); NON-HDL CHOLESTEROL 128 mg/dL (Desirable<160); TOTAL CHOLESTEROL 164 mg/dL (Desirable<200); TRIGLYCERIDES 280 MG/DL (Normal: <150)
[2016-12-15 07:14] LABS: INTER. NORMALIZED RATIO 1.3; PROTHROMBIN TIME 13.5 (9.2-11.2)
[2016-12-15 07:19] LABS: TROP-I INTERPRETATION POSITIVE; TROPONIN-I 1.52 ng/mL (0.0-0.30)
[2016-12-15 08:05] VITALS: BP 102/59
[2016-12-15 08:38] LABS: PTT 25.2 (25-32)
[2016-12-15 08:58] LABS: POINT-OF-CARE METER ID UU14162513
[2016-12-15 12:00] VITALS: BP 97/61
[2016-12-15 12:06] LABS: POINT-OF-CARE METER ID UU13113781
[2016-12-15 13:26] LABS: TROP-I INTERPRETATION POSITIVE; TROPONIN-I 3.08 ng/mL (0.0-0.30)
[2016-12-15 16:56] VITALS: BP 123/78
[2016-12-15 20:55] VITALS: BP 126/67
[2016-12-15 21:04] LABS: POINT-OF-CARE METER ID UU13113781
[2016-12-16] VITALS (7 sets, daily range): BP systolic 96–117; BP diastolic 52–64
[2016-12-16 06:29] LABS: INTER. NORMALIZED RATIO 1.3; PROTHROMBIN TIME 12.8 (9.2-11.2); PTT 45.7 (25-32)
[2016-12-16 07:39] LABS: HEMATOCRIT 41.2 % (36.0-46.0); MCH 28.7 PG (29.0-34.0); MCHC 30.1 G/DL (30.0-36.0); MCV 95.4 FL (83-99); MEAN PLAT.VOLUME 11.1 uM^3 (9.5-12.4); PLATELET COUNT 243 K/uL (156-360); RBC DIS.WIDTH-CV 14.6 % (11.8-14.6); RBC DIS.WIDTH-SD 50.8 % (39-53); RED BLOOD COUNT 4.32 M/uL (3.80-5.20); WHITE BLOOD COUNT 7.9 K/uL (4.1-10.2)
[2016-12-16 07:42] LABS: POINT-OF-CARE METER ID UU13113781
[2016-12-16 11:06] LABS: POINT-OF-CARE METER ID UU14174216
[2016-12-16 13:24] LABS: TROP-I INTERPRETATION POSITIVE; TROPONIN-I 0.81 ng/mL (0.0-0.30)
[2016-12-16 16:15] LABS: POINT-OF-CARE METER ID UU14174216
[2016-12-17 04:19] VITALS: BP 92/50
[2016-12-17 06:50] LABS: INTER. NORMALIZED RATIO 1.2; PROTHROMBIN TIME 12.5 (9.2-11.2)
[2016-12-17 08:08] LABS: POINT-OF-CARE METER ID UU13113781
[2016-12-17 08:15] VITALS: BP 115/60
[2016-12-17 08:38] LABS: POINT-OF-CARE METER ID UU13113781
[2016-12-17 11:49] VITALS: BP 118/89
[2016-12-17] MEDS ORDERED: LO-DOSE ASPIRIN81 M2 PO (13:52)
[2016-12-17] MEDS ORDERED: FUROSEMIDE40 MG PO (13:52)
[2016-12-17] MEDS ORDERED: KLOR-CON M1010 MEQ PO (13:52)
[2016-12-17] MEDS ORDERED: LOSARTAN POTASS25 MG PO (13:52)
[2016-12-17] MEDS ORDERED: RANEXA500 MG PO (13:52)
== END 2016-12-17 16:12 | disposition home health service (06) | DRG 281 ==
LOC: EME → EDBD 21:40 → EDOF 12-15 01:56 → 5WEST 12-15 01:56 → 4EAST 12-15 08:53 → 5WEST 12-15 08:53 → 4EAST 12-15 11:49
PROVIDERS: Emergency Medicine; Hospitalist; Internal Medicine; Internal Medicine Cardiovascular Disease; Physician Assistant Medical
DX: I21.4 Non-ST elevation (NSTEMI) myocardial infarction (principal); Z68.45 Body mass index [BMI] 70 or greater, adult; F33.9 Major depressive disorder, recurrent, unspecified; J44.1 Chronic obstructive pulmonary disease with (acute) exacerbation; J96.10 Chronic respiratory failure, unspecified whether with hypoxia or hypercapnia; I25.10 Atherosclerotic heart disease of native coronary artery without angina pectoris; F17.210 Nicotine dependence, cigarettes, uncomplicated; E78.5 Hyperlipidemia, unspecified; E03.9 Hypothyroidism, unspecified; G47.33 Obstructive sleep apnea (adult) (pediatric); I95.9 Hypotension, unspecified; I12.9 Hypertensive chronic kidney disease with stage 1 through stage 4 chronic kidney disease, or unspecified chronic kidney disease; R32 Unspecified urinary incontinence; E66.01 Morbid (severe) obesity due to excess calories; N18.3 Chronic kidney disease, stage 3 (moderate); J30.2 Other seasonal allergic rhinitis; E11.22 Type 2 diabetes mellitus with diabetic chronic kidney disease; F41.1 Generalized anxiety disorder; E11.65 Type 2 diabetes mellitus with hyperglycemia; K21.9 Gastro-esophageal reflux disease without esophagitis; Z60.2 Problems related to living alone; Z79.82 Long term (current) use of aspirin; Z79.01 Long term (current) use of anticoagulants; Z79.02 Long term (current) use of antithrombotics/antiplatelets; Z98.61 Coronary angioplasty status; Z91.19 Patient's noncompliance with other medical treatment and regimen; Z86.718 Personal history of other venous thrombosis and embolism; Z86.711 Personal history of pulmonary embolism; I25.2 Old myocardial infarction; Z99.81 Dependence on supplemental oxygen; Z83.6 Family history of other diseases of the respiratory system; Z09 Encounter for follow-up examination after completed treatment for conditions other than malignant neoplasm
CPT/HCPCS: 71010; 80048; 80061; 81003; 82948; 84484; 85025; 85027; 85610; 85730; 93005; 94640; 94640 76; 94799; 99202; 99281; 99285; J1815; J2270; J7030; J7512

== ENCOUNTER 2017-01-04 23:48 | Inpatient (IN) | payer OTHER ==
[~2017-01-04] VITALS: Ht 149.9 cm; Wt 169.0 kg
[~2017-01-04 23:48] MED LIST changes: +DOXYCYCLINE HY100 MG PO; +KLOR-CON M1010 MEQ PO; +LO-DOSE ASPIRIN81 M2 PO; +RANEXA500 MG PO
[2017-01-05 00:49] LABS: EOSINOPHIL (%) 0.1 % (0-5); HEMATOCRIT 46.4 % (36.0-46.0); IMMATURE GRANULOCYTE (%) 1.4 % (0.0-0.7); IMMATURE GRANULOCYTE COUNT 0.2 K/uL; MCH 29.6 PG (29.0-34.0); MCHC 31.7 G/DL (30.0-36.0); MCV 93.5 FL (83-99); MEAN PLAT.VOLUME 10.8 uM^3 (9.5-12.4); MONOCYTE (%) 5.2 % (3-12); MONOCYTE COUNT 0.6 K/uL (0-0.8); NEUTROPHIL (%) 84.2 % (45-76); PLATELET COUNT 323 K/uL (156-360); RBC DIS.WIDTH-CV 14.1 % (11.8-14.6); RBC DIS.WIDTH-SD 48.8 % (39-53); RED BLOOD COUNT 4.96 M/uL (3.80-5.20); WHITE BLOOD COUNT 11.8 K/uL (4.1-10.2)
[2017-01-05 00:57] LABS: CHLORIDE 100 mEq/L (99-109); POTASSIUM 4.7 mEq/L (3.7-5.4); SODIUM 137 mEq/L (136-147)
[2017-01-05 00:59] LABS: GLUCOSE 259 mg/dL (70-99)
[2017-01-05 01:00] LABS: ANION GAP 13 MEQ/L (2-14)
[2017-01-05 01:01] LABS: INTER. NORMALIZED RATIO 1.7; PROTHROMBIN TIME 18.1 (9.2-11.2); TOTAL BILIRUBIN 0.5 mg/dL (0.0-1.0)
[2017-01-05 01:03] LABS: ALKALINE PHOSPHATASE 102 IU/L (3-129); GFR ESTIMATE (CALCULATED) 52 mL/min/
[2017-01-05 01:04] LABS: UREA NITROGEN (BUN) 19 mg/dL (9-23)
[2017-01-05 01:06] LABS: LIPASE 17 U/L (1.0-51.0); TROP-I INTERPRETATION NEGATIVE; TROPONIN-I 0.01 ng/mL (0.0-0.30)
[2017-01-05 02:15] LABS: ADD MIUA? YES; BILIRUBIN SMALL; BLOOD NEGATIVE; COLOR AMBER ((YELLOW)); GLUCOSE (STRIP) NEGATIVE; KETONES 5; LEUKOCYTES MODERATE; NITRITE NEGATIVE; PROTEIN (STRIP) 30; UROBILINOGEN 0.2 MG/DL (0.2-1.0)
[2017-01-05 02:26] LABS: BACTERIA RARE /HPF; EPITHELIAL CELLS RARE /HPF; HYALINE CASTS 0-5 /LPF; MUCUS TRACE /LPF; RED BLOOD CELLS 0-5 /HPF (0-5); UCUL ADDED? NO
[2017-01-05 02:35] LABS: SPECIFIC GRAVITY 1.062 (1.000-1.030)
[2017-01-05 06:25] LABS: POINT-OF-CARE METER ID UU14100415
[2017-01-05 07:12] VITALS: BP 90/50
[2017-01-05] MEDS ORDERED: WARFARIN SODIUM1 MG PO (11:16)
[2017-01-05] MEDS ORDERED: COUMADIN5 MG PO (11:16)
[2017-01-05] MEDS ORDERED: LOSARTAN POTASS25 MG PO (11:52)
[2017-01-05] MEDS ORDERED: EFFEXOR XR150 MG PO (11:57)
[2017-01-05] MEDS ORDERED: POTASSIUM CHLO20 ME1 PO (11:59)
[2017-01-05 12:10] VITALS: BP 90/51
[2017-01-05 12:37] LABS: TROP-I INTERPRETATION NEGATIVE; TROPONIN-I 0.02 ng/mL (0.0-0.30)
[2017-01-05 17:00] VITALS: BP 96/51
[2017-01-05 18:10] LABS: INTER. NORMALIZED RATIO 1.8; PROTHROMBIN TIME 18.3 (9.2-11.2)
[2017-01-05 18:43] LABS: TROP-I INTERPRETATION NEGATIVE; TROPONIN-I 0.01 ng/mL (0.0-0.30)
[2017-01-05 20:12] VITALS: BP 111/51
[2017-01-05 23:26] VITALS: BP 99/54
[2017-01-06 03:53] VITALS: BP 108/54
[2017-01-06 08:15] LABS: POINT-OF-CARE METER ID UU14174216
[2017-01-06 08:27] LABS: INTER. NORMALIZED RATIO 2.1; PROTHROMBIN TIME 21.6 (9.2-11.2)
[2017-01-06 08:32] VITALS: BP 103/51
[2017-01-06 08:33] LABS: ANION GAP 6 MEQ/L (2-14); CHLORIDE 107 MEQ/L (99-109); GFR ESTIMATE (CALCULATED) > 59 mL/min/; POTASSIUM 4.3 MEQ/L (3.7-5.4); SAMPLE HEMOLYSIS CHECK 0; SAMPLE ICTERIC CHECK 0; SAMPLE LIPEMIA CHECK 0; SODIUM 142 MEQ/L (136-147); UREA NITROGEN (BUN) 14 mg/dL (9-23)
[2017-01-06 08:35] LABS: GLUCOSE 86 mg/dL (70-99)
[2017-01-06 08:39] LABS: EOSINOPHIL (%) 0.5 % (0-5); HEMATOCRIT 37.5 % (36.0-46.0); IMMATURE GRANULOCYTE (%) 0.9 % (0.0-0.7); IMMATURE GRANULOCYTE COUNT 0.1 K/uL; INSTRUMENT ABS NEUTROPHIL CT 4.2 K/uL; LYMPHOCYTE COUNT 1.7 K/uL (1.0-2.8); MCH 29.5 PG (29.0-34.0); MCHC 30.7 G/DL (30.0-36.0); MCV 96.2 FL (83-99); MEAN PLAT.VOLUME 10.7 uM^3 (9.5-12.4); MONOCYTE (%) 8.8 % (3-12); MONOCYTE COUNT 0.6 K/uL (0-0.8); NEUTROPHIL (%) 63.4 % (45-76); NEUTROPHIL COUNT 4.2 K/uL (1.8-6.4); PLATELET COUNT 248 K/uL (156-360); RBC DIS.WIDTH-CV 14.6 % (11.8-14.6); RBC DIS.WIDTH-SD 51.7 % (39-53)
[2017-01-06 08:43] LABS: WHITE BLOOD COUNT 6.6 K/uL (4.1-10.2)
[2017-01-06 12:35] LABS: POINT-OF-CARE METER ID UU14174216
[2017-01-06 12:45] VITALS: BP 102/53
[2017-01-06 16:52] LABS: POINT-OF-CARE METER ID UU14174216
[2017-01-06 17:42] VITALS: BP 98/54
[2017-01-06 19:38] VITALS: BP 95/51
[2017-01-06 22:51] LABS: POINT-OF-CARE METER ID UU13113675
[2017-01-06 23:35] LABS: POINT-OF-CARE METER ID UU13113675
[2017-01-07 00:03] VITALS: BP 100/57
[2017-01-07 04:51] VITALS: BP 90/51
[2017-01-07 07:50] VITALS: BP 90/50
[2017-01-07 08:06] LABS: POINT-OF-CARE METER ID UU14174216; POINT-OF-CARE USER ID ENVKC36
[2017-01-07 08:41] LABS: EOSINOPHIL (%) 0.1 % (0-5); HEMATOCRIT 33.9 % (36.0-46.0); IMMATURE GRANULOCYTE (%) 0.7 % (0.0-0.7); IMMATURE GRANULOCYTE COUNT 0.1 K/uL; INSTRUMENT ABS NEUTROPHIL CT 4.5 K/uL; LYMPHOCYTE COUNT 1.9 K/uL (1.0-2.8); MCH 29.6 PG (29.0-34.0); MCV 95.5 FL (83-99); MEAN PLAT.VOLUME 10.8 uM^3 (9.5-12.4); MONOCYTE (%) 7.8 % (3-12); MONOCYTE COUNT 0.5 K/uL (0-0.8); NEUTROPHIL (%) 64.7 % (45-76); NEUTROPHIL COUNT 4.5 K/uL (1.8-6.4); PLATELET COUNT 227 K/uL (156-360); RBC DIS.WIDTH-CV 14.5 % (11.8-14.6); RBC DIS.WIDTH-SD 50.5 % (39-53); RED BLOOD COUNT 3.55 M/uL (3.80-5.20)
[2017-01-07 08:52] LABS: INTER. NORMALIZED RATIO 2.4
[2017-01-07 08:59] LABS: CHLORIDE 110 mEq/L (99-109); POTASSIUM 3.8 mEq/L (3.7-5.4); SODIUM 142 mEq/L (136-147)
[2017-01-07 09:01] LABS: GLUCOSE 64 mg/dL (70-99)
[2017-01-07 09:02] LABS: ANION GAP 6 MEQ/L (2-14)
[2017-01-07 09:05] LABS: GFR ESTIMATE (CALCULATED) > 59 mL/min/; TROP-I INTERPRETATION NEGATIVE; TROPONIN-I < 0.01 ng/mL (0.0-0.30)
[2017-01-07 09:06] LABS: UREA NITROGEN (BUN) 12 mg/dL (9-23)
[2017-01-07 12:12] LABS: POINT-OF-CARE METER ID UU13113781; POINT-OF-CARE USER ID ENVKC36
[2017-01-07 12:25] LABS: POINT-OF-CARE METER ID UU14174216; POINT-OF-CARE USER ID ENVKC36
[2017-01-07 12:36] VITALS: BP 104/52
[2017-01-07 12:53] LABS: POINT-OF-CARE METER ID UU13113781
[2017-01-07 16:59] VITALS: BP 100/53
[2017-01-07 21:00] VITALS: BP 107/59
[2017-01-07 22:00] LABS: POINT-OF-CARE METER ID UU14174216
[2017-01-08 00:11] VITALS: BP 89/50
[2017-01-08 04:11] VITALS: BP 91/54
[2017-01-08 06:05] LABS: INTER. NORMALIZED RATIO 1.9; PROTHROMBIN TIME 19.8 (9.2-11.2)
[2017-01-08] MEDS ORDERED: AUGMENTIN875 MG PO (06:27)
[2017-01-08 08:06] LABS: POINT-OF-CARE METER ID UU13113781
[2017-01-08 08:23] VITALS: BP 110/58
[2017-01-08 11:12] LABS: POINT-OF-CARE METER ID UU14174216
[2017-01-08 11:44] VITALS: BP 105/52
== END 2017-01-08 11:44 | disposition home health service (06) | DRG 580 ==
LOC: EME 23:48 → 4EAST 01-05 05:43 → EDOF 01-05 05:43 → 4EAST 01-05 07:09
PROVIDERS: Emergency Medicine; Hospitalist; Internal Medicine
PROC: 0J9C0ZZ Drainage of Pelvic Region Subcutaneous Tissue and Fascia, Open Approach (ICD-10-PCS; principal; 2017-01-06)
DX: L02.214 Cutaneous abscess of groin (principal); J44.9 Chronic obstructive pulmonary disease, unspecified; I25.10 Atherosclerotic heart disease of native coronary artery without angina pectoris; E66.01 Morbid (severe) obesity due to excess calories; Z68.45 Body mass index [BMI] 70 or greater, adult; E11.65 Type 2 diabetes mellitus with hyperglycemia; L73.2 Hidradenitis suppurativa; G47.33 Obstructive sleep apnea (adult) (pediatric); Z86.711 Personal history of pulmonary embolism; Z79.01 Long term (current) use of anticoagulants; Z86.718 Personal history of other venous thrombosis and embolism; F17.210 Nicotine dependence, cigarettes, uncomplicated; I25.2 Old myocardial infarction; I10 Essential (primary) hypertension; K21.9 Gastro-esophageal reflux disease without esophagitis; F32.9 Major depressive disorder, single episode, unspecified; R07.89 Other chest pain; I95.9 Hypotension, unspecified; Z74.01 Bed confinement status
CPT/HCPCS: 71010; 71275; 74177; 80048; 80053; 81003; 82948; 83605; 83690; 84484; 85025; 85610; 85730; 87040; 87070; 87075; 87077; 87186; 87205; 87801; 93005; 94799; 99281; 99285; J1815; J2250; J2543; J3370; J7050

== ENCOUNTER 2017-01-11 04:13 | Emergency (ER) | payer OTHER ==
[~2017-01-11] VITALS: Ht 149.9 cm; Wt 172.4 kg
[~2017-01-11 04:13] MED LIST changes: +POTASSIUM CHLO20 ME1 PO
[2017-01-11 07:30] LABS: MCH 29.9 PG (29.0-34.0); MCHC 30.3 G/DL (30.0-36.0); MCV 98.6 FL (83-99); MEAN PLAT.VOLUME 10.8 uM^3 (9.5-12.4); PLATELET COUNT 228 K/uL (156-360); RBC DIS.WIDTH-SD 54.3 % (39-53); RED BLOOD COUNT 3.65 M/uL (3.80-5.20); WHITE BLOOD COUNT 8.9 K/uL (4.1-10.2)
[2017-01-11 07:46] LABS: D-DIMER ELISA 0.33 mg/L FEU (< 0.57); INTER. NORMALIZED RATIO 1.1; PROTHROMBIN TIME 11.4 (9.2-11.2); PTT 22.6 (25-32)
[2017-01-11 07:51] LABS: CARBON DIOXIDE (BICARBONATE) 32.4 MEQ/L (20-31)
[2017-01-11 08:10] LABS: CHLORIDE 110 mEq/L (99-109); SODIUM 142 mEq/L (136-147)
[2017-01-11 08:12] LABS: GLUCOSE 216 mg/dL (70-99)
[2017-01-11 08:13] LABS: ANION GAP 6 MEQ/L (2-14)
[2017-01-11 08:16] LABS: GFR ESTIMATE (CALCULATED) > 59 mL/min/
[2017-01-11 08:17] LABS: UREA NITROGEN (BUN) 10 mg/dL (9-23)
[2017-01-11 08:19] LABS: LIPASE 17 U/L (1.0-51.0)
[2017-01-11 08:22] LABS: ALKALINE PHOSPHATASE 71 IU/L (3-129); POTASSIUM 4.7 mEq/L (3.7-5.4); TOTAL BILIRUBIN 0.3 mg/dL (0.0-1.0)
[2017-01-11 08:27] LABS: QUANTITATIVE HCG < 4.0 MIU/ML
[2017-01-11] MEDS ORDERED: NORCO 5/3251 TABLET PO (08:41)
[2017-01-11 09:07] LABS: BASE EXCESS 2.8 mEq/L (-3 to +3); BICARBONATE 29.3 mEq/L (22-26); CARBOXY HGB 2.6 % (0-5); METHEMOGLOBIN 0.8 % (0-1.5); PO2 95 mm Hg (80-100); pH 7.35 (7.35-7.45)
[2017-01-11] MEDS ORDERED: FUROSEMIDE40 MG PO (09:07)
[2017-01-11 09:09] LABS: COMMENTS - BLOOD GASES C+A+; DEVICE NC; O2 FLOW 2 L/MIN; PCO2 53 mm Hg (35-45); SITE RR; TOTAL RESP RATE 18 resp/min
[2017-01-11 11:32] VITALS: BP 91/79
== END 2017-01-11 12:50 | disposition home or self-care (01) ==
LOC: EME → EDBD 04:13 → EME 12:50
PROVIDERS: Emergency Medicine
DX: R07.81 Pleurodynia (principal); J44.9 Chronic obstructive pulmonary disease, unspecified; J45.909 Unspecified asthma, uncomplicated; E11.9 Type 2 diabetes mellitus without complications; E78.5 Hyperlipidemia, unspecified; I25.2 Old myocardial infarction; K21.9 Gastro-esophageal reflux disease without esophagitis; F17.200 Nicotine dependence, unspecified, uncomplicated; Z79.01 Long term (current) use of anticoagulants; Z79.84 Long term (current) use of oral hypoglycemic drugs
CPT/HCPCS: 36600; 71010; 80053; 82803; 83690; 83880; 84702; 85027; 85379; 85610; 85730; 93005; 94640; 94640 76; 99281; 99285; J1885; J2270; J3010

== ENCOUNTER 2017-01-28 11:37 | Observation (INO) | payer OTHER ==
[~2017-01-28] VITALS: Ht 149.9 cm; Wt 171.0 kg
[~2017-01-28 11:37] MED LIST changes: +NORCO 5/3251 TABLET PO
[2017-01-28 13:22] LABS: HEMATOCRIT 37.8 % (36.0-46.0); MCH 29.8 PG (29.0-34.0); MCV 96.4 FL (83-99); MEAN PLAT.VOLUME 10.9 uM^3 (9.5-12.4); PLATELET COUNT 277 K/uL (156-360); RBC DIS.WIDTH-CV 14.6 % (11.8-14.6); RBC DIS.WIDTH-SD 51.9 % (39-53); RED BLOOD COUNT 3.92 M/uL (3.80-5.20); WHITE BLOOD COUNT 12.2 K/uL (4.1-10.2)
[2017-01-28 13:24] LABS: INTER. NORMALIZED RATIO 1.2; PROTHROMBIN TIME 11.9 (9.2-11.2)
[2017-01-28 13:28] LABS: CHLORIDE 100 mEq/L (99-109)
[2017-01-28 13:29] LABS: POTASSIUM 3.5 mEq/L (3.7-5.4); SODIUM 139 mEq/L (136-147)
[2017-01-28 13:30] LABS: GLUCOSE 204 mg/dL (70-99)
[2017-01-28 13:32] LABS: ANION GAP 10 MEQ/L (2-14)
[2017-01-28] MEDS ORDERED: LO-DOSE ASPIRIN81 M2 PO (13:33)
[2017-01-28 13:34] LABS: GFR ESTIMATE (CALCULATED) > 59 mL/min/
[2017-01-28 13:35] LABS: UREA NITROGEN (BUN) 11 mg/dL (9-23)
[2017-01-28 13:40] LABS: TROP-I INTERPRETATION NEGATIVE; TROPONIN-I < 0.01 ng/mL (0.0-0.30)
[2017-01-28] MEDS ORDERED: COZAAR50 MG PO (13:44)
[2017-01-28 18:18] VITALS: BP 101/54
[2017-01-28 20:30] VITALS: BP 104/49
[2017-01-28 22:21] LABS: TROP-I INTERPRETATION NEGATIVE; TROPONIN-I 0.02 ng/mL (0.0-0.30)
[2017-01-29 00:30] VITALS: BP 100/55
[2017-01-29 03:57] LABS: TROP-I INTERPRETATION NEGATIVE; TROPONIN-I 0.04 ng/mL (0.0-0.30)
[2017-01-29 04:30] VITALS: BP 113/58
[2017-01-29 06:21] LABS: INTER. NORMALIZED RATIO 1.2; PROTHROMBIN TIME 12.1 (9.2-11.2)
[2017-01-29 07:28] VITALS: BP 106/56
[2017-01-29 10:16] LABS: TROP-I INTERPRETATION NEGATIVE; TROPONIN-I 0.02 ng/mL (0.0-0.30)
[2017-01-29 11:18] VITALS: BP 121/53
[2017-01-29] MEDS ORDERED: COUMADIN7.5 MG PO (11:23)
== END 2017-01-29 15:02 | disposition home health service (06) ==
LOC: EME → EDBD 11:37 → EME 11:37 → EDOF 15:00 → 5WEST 15:00 → EDOF 15:00 → 5WEST 17:53
PROVIDERS: Emergency Medicine; Hospitalist; Internal Medicine; Nurse Practitioner Adult Health
DX: R07.9 Chest pain, unspecified (principal); E11.65 Type 2 diabetes mellitus with hyperglycemia; G47.33 Obstructive sleep apnea (adult) (pediatric); E66.01 Morbid (severe) obesity due to excess calories; Z68.45 Body mass index [BMI] 70 or greater, adult; I10 Essential (primary) hypertension; E78.00 Pure hypercholesterolemia, unspecified; I25.10 Atherosclerotic heart disease of native coronary artery without angina pectoris; F32.9 Major depressive disorder, single episode, unspecified; Z86.711 Personal history of pulmonary embolism; Z79.01 Long term (current) use of anticoagulants; G43.909 Migraine, unspecified, not intractable, without status migrainosus; E78.5 Hyperlipidemia, unspecified; K21.9 Gastro-esophageal reflux disease without esophagitis; I25.2 Old myocardial infarction
CPT/HCPCS: 71010; 71275; 80048; 82948; 84484; 85027; 85610; 93005; 94640; 94640 76; 94799; 99202; 99281; 99285; G0378; J1650; J7030

== ENCOUNTER 2017-02-11 09:26 | Inpatient (IN) | payer OTHER ==
[~2017-02-11] VITALS: Ht 165.1 cm; Wt 196.0 kg
[~2017-02-11 09:26] MED LIST changes: +COZAAR50 MG PO
[2017-02-11 10:21] LABS: EOSINOPHIL (%) 0.5 % (0-5); EOSINOPHIL COUNT 0.1 K/uL (0-0.3); HEMATOCRIT 48.7 % (36.0-46.0); IMMATURE GRANULOCYTE (%) 0.7 % (0.0-0.7); IMMATURE GRANULOCYTE COUNT 0.1 K/uL; INSTRUMENT ABS NEUTROPHIL CT 11.4 K/uL; LYMPHOCYTE COUNT 1.1 K/uL (1.0-2.8); MCH 29.9 PG (29.0-34.0); MCHC 30.8 G/DL (30.0-36.0); MONOCYTE (%) 4.7 % (3-12); MONOCYTE COUNT 0.6 K/uL (0-0.8); NEUTROPHIL (%) 85.7 % (45-76); NEUTROPHIL COUNT 11.4 K/uL (1.8-6.4); PLATELET COUNT 297 K/uL (156-360); RBC DIS.WIDTH-CV 15.5 % (11.8-14.6); RBC DIS.WIDTH-SD 54.7 % (39-53); RED BLOOD COUNT 5.02 M/uL (3.80-5.20); WHITE BLOOD COUNT 13.3 K/uL (4.1-10.2)
[2017-02-11 10:35] LABS: INTER. NORMALIZED RATIO 1.1; PROTHROMBIN TIME 10.8 (9.2-11.2); PTT 25.2 (25-32)
[2017-02-11 10:37] LABS: CHLORIDE 103 mEq/L (99-109); POTASSIUM 4.3 mEq/L (3.7-5.4)
[2017-02-11 10:38] LABS: SODIUM 144 mEq/L (136-147)
[2017-02-11 10:39] LABS: GLUCOSE 312 mg/dL (70-99)
[2017-02-11 10:41] LABS: ANION GAP 13 MEQ/L (2-14)
[2017-02-11 10:43] LABS: GFR ESTIMATE (CALCULATED) 52 mL/min/
[2017-02-11 10:44] LABS: UREA NITROGEN (BUN) 7 mg/dL (9-23)
[2017-02-11 10:51] LABS: TROP-I INTERPRETATION NEGATIVE; TROPONIN-I < 0.01 ng/mL (0.0-0.30)
[2017-02-11 16:16] LABS: TROP-I INTERPRETATION POSITIVE; TROPONIN-I 1.17 ng/mL (0.0-0.30)
[2017-02-11 20:39] VITALS: BP 73/50
[2017-02-11 21:25] LABS: TROP-I INTERPRETATION POSITIVE; TROPONIN-I 2.99 ng/mL (0.0-0.30)
[2017-02-12] VITALS (10 sets, daily range): BP systolic 84–110; BP diastolic 49–67
[2017-02-12 02:00] LABS: METH RESISTANT S AUREUS PCR NEGATIVE (NEGATIVE)
[2017-02-12 02:09] LABS: PROBE CHECK PASS; SPECIMEN PROCESSING CONTROL PASS
[2017-02-12 05:21] LABS: HEMATOCRIT 36.8 % (36.0-46.0); MCH 31.4 PG (29.0-34.0); MCHC 31.8 G/DL (30.0-36.0); MCV 98.7 FL (83-99); MEAN PLAT.VOLUME 11.2 uM^3 (9.5-12.4); PLATELET COUNT 226 K/uL (156-360); RBC DIS.WIDTH-CV 15.6 % (11.8-14.6); RBC DIS.WIDTH-SD 55.9 % (39-53); WHITE BLOOD COUNT 9.1 K/uL (4.1-10.2)
[2017-02-12 05:24] LABS: RED BLOOD COUNT 3.73 M/uL (3.80-5.20)
[2017-02-12 05:30] LABS: INTER. NORMALIZED RATIO 1.1; PROTHROMBIN TIME 11.2 (9.2-11.2)
[2017-02-12 05:31] LABS: PTT 55.1 (25-32)
[2017-02-12 05:41] LABS: ANION GAP 8 MEQ/L (2-14); CHLORIDE 104 MEQ/L (99-109); GFR ESTIMATE (CALCULATED) > 59 mL/min/; POTASSIUM 3.7 MEQ/L (3.7-5.4); SAMPLE HEMOLYSIS CHECK 1; SAMPLE ICTERIC CHECK 0; SAMPLE LIPEMIA CHECK 0; SODIUM 141 MEQ/L (136-147); UREA NITROGEN (BUN) 8 mg/dL (9-23)
[2017-02-12 05:43] LABS: GLUCOSE 52 mg/dL (70-99)
[2017-02-12 06:27] LABS: POINT-OF-CARE METER ID UU14162636
[2017-02-12 07:13] LABS: POINT-OF-CARE METER ID UU14162636
[2017-02-12 08:34] LABS: TROP-I INTERPRETATION POSITIVE; TROPONIN-I 3.78 ng/mL (0.0-0.30)
[2017-02-12 11:49] LABS: POINT-OF-CARE METER ID UU14162636
[2017-02-12 17:24] LABS: POINT-OF-CARE METER ID UU14162636
[2017-02-12 22:22] LABS: POINT-OF-CARE METER ID UU13113731; POINT-OF-CARE USER ID LABHNS84
[2017-02-13] VITALS (9 sets, daily range): BP systolic 77–107; BP diastolic 38–63
[2017-02-13 08:26] LABS: PTT 113.2 (25-32)
[2017-02-13 08:40] LABS: TROP-I INTERPRETATION POSITIVE; TROPONIN-I 2.63 ng/mL (0.0-0.30)
[2017-02-13 08:54] LABS: POINT-OF-CARE METER ID UU13113731
[2017-02-13 09:22] LABS: ALKALINE PHOSPHATASE 88 IU/L (3-129); ANION GAP 7 MEQ/L (2-14); CHLORIDE 105 MEQ/L (99-109); GFR ESTIMATE (CALCULATED) > 59 mL/min/; POTASSIUM 3.7 MEQ/L (3.7-5.4); SAMPLE HEMOLYSIS CHECK 0; SAMPLE ICTERIC CHECK 0; SAMPLE LIPEMIA CHECK 0; SODIUM 142 MEQ/L (136-147); TOTAL BILIRUBIN 0.3 MG/DL (0.0-1.0); UREA NITROGEN (BUN) 8 mg/dL (9-23)
[2017-02-13 09:26] LABS: GLUCOSE 83 mg/dL (70-99)
[2017-02-13 12:54] LABS: INTER. NORMALIZED RATIO 1.2; PROTHROMBIN TIME 12.6 (9.2-11.2)
[2017-02-13 16:09] LABS: POINT-OF-CARE METER ID UU13113731
[2017-02-13 22:46] LABS: POINT-OF-CARE METER ID UU13113731; POINT-OF-CARE USER ID LABHNS84
[2017-02-14] VITALS (7 sets, daily range): BP systolic 80–99; BP diastolic 40–65
[2017-02-14 06:27] LABS: HEMATOCRIT 37.1 % (36.0-46.0); MCH 30.2 PG (29.0-34.0); MCHC 30.7 G/DL (30.0-36.0); MCV 98.1 FL (83-99); PLATELET COUNT 239 K/uL (156-360); RBC DIS.WIDTH-CV 15.5 % (11.8-14.6); RED BLOOD COUNT 3.78 M/uL (3.80-5.20)
[2017-02-14 06:50] LABS: INTER. NORMALIZED RATIO 1.2; PROTHROMBIN TIME 12.5 (9.2-11.2)
[2017-02-14 06:59] LABS: ANION GAP 7 MEQ/L (2-14); CHLORIDE 106 MEQ/L (99-109); GFR ESTIMATE (CALCULATED) > 59 mL/min/; POTASSIUM 4.2 MEQ/L (3.7-5.4); SAMPLE HEMOLYSIS CHECK 0; SAMPLE ICTERIC CHECK 0; SAMPLE LIPEMIA CHECK 0; SODIUM 143 MEQ/L (136-147); UREA NITROGEN (BUN) 8 mg/dL (9-23)
[2017-02-14 07:02] LABS: GLUCOSE 51 mg/dL (70-99)
[2017-02-14 07:03] LABS: TROP-I INTERPRETATION POSITIVE; TROPONIN-I 1.81 ng/mL (0.0-0.30)
[2017-02-14 08:06] LABS: POINT-OF-CARE METER ID UU13113731
[2017-02-14 13:16] LABS: POINT-OF-CARE METER ID UU14174217
[2017-02-15 10:17] LABS: POINT-OF-CARE METER ID UU13113731
== END 2017-02-14 17:09 | disposition home or self-care (01) | DRG 281 ==
LOC: EME 09:26 → EDOF 14:52 → 5WEST 20:13 → 4WEST 21:50
PROVIDERS: Emergency Medicine; Internal Medicine; Internal Medicine Cardiovascular Disease
PROC: 05HY33Z Insertion of Infusion Device into Upper Vein, Percutaneous Approach (ICD-10-PCS; principal; 2017-02-11)
DX: I21.4 Non-ST elevation (NSTEMI) myocardial infarction (principal); J44.9 Chronic obstructive pulmonary disease, unspecified; I25.10 Atherosclerotic heart disease of native coronary artery without angina pectoris; E66.01 Morbid (severe) obesity due to excess calories; G47.33 Obstructive sleep apnea (adult) (pediatric); E11.9 Type 2 diabetes mellitus without complications; E03.9 Hypothyroidism, unspecified; F32.9 Major depressive disorder, single episode, unspecified; K21.9 Gastro-esophageal reflux disease without esophagitis; E78.5 Hyperlipidemia, unspecified; I25.110 Atherosclerotic heart disease of native coronary artery with unstable angina pectoris; F17.200 Nicotine dependence, unspecified, uncomplicated; G25.81 Restless legs syndrome; H40.9 Unspecified glaucoma; Z99.81 Dependence on supplemental oxygen; Z95.5 Presence of coronary angioplasty implant and graft; Z68.45 Body mass index [BMI] 70 or greater, adult; I25.2 Old myocardial infarction; Z86.711 Personal history of pulmonary embolism; Z79.82 Long term (current) use of aspirin; Z90.710 Acquired absence of both cervix and uterus; Z86.718 Personal history of other venous thrombosis and embolism; Z91.14 Patient's other noncompliance with medication regimen; Z91.19 Patient's noncompliance with other medical treatment and regimen; Z79.01 Long term (current) use of anticoagulants
CPT/HCPCS: 71010; 71275; 80048; 80053; 80306 90; 82948; 84443; 84484; 85025; 85027; 85379; 85610; 85730; 87641; 93005; 94640; 94640 76; 94799; 99202; 99281; 99285; J1815; J2270; J7030

== ENCOUNTER 2017-04-06 13:44 | Inpatient (IN) | payer OTHER ==
[~2017-04-06] VITALS: Ht 149.9 cm; Wt 187.6 kg
[2017-04-06 14:53] LABS: HEMATOCRIT 40.7 % (36.0-46.0); MCH 29.3 PG (29.0-34.0); MCHC 30.2 G/DL (30.0-36.0); MCV 96.9 FL (83-99); MEAN PLAT.VOLUME 10.4 uM^3 (9.5-12.4); PLATELET COUNT 242 K/uL (156-360); RBC DIS.WIDTH-CV 14.7 % (11.8-14.6); WHITE BLOOD COUNT 9.5 K/uL (4.1-10.2)
[2017-04-06 15:02] LABS: CHLORIDE 103 mEq/L (99-109); POTASSIUM 4.1 mEq/L (3.7-5.4); SODIUM 142 mEq/L (136-147)
[2017-04-06 15:04] LABS: GLUCOSE 248 mg/dL (70-99)
[2017-04-06 15:05] LABS: ANION GAP 11 MEQ/L (2-14)
[2017-04-06 15:08] LABS: GFR ESTIMATE (CALCULATED) > 59 mL/min/
[2017-04-06 15:09] LABS: UREA NITROGEN (BUN) 11 mg/dL (9-23)
[2017-04-06 15:15] LABS: TROP-I INTERPRETATION NEGATIVE; TROPONIN-I < 0.01 ng/mL (0.0-0.30)
[2017-04-06] MEDS ORDERED: VENTOLIN HFA18 GM IH (17:50)
[2017-04-06] MEDS ORDERED: PERCOCET 5/31 TABLET PO (17:51)
[2017-04-06] MEDS ORDERED: TYLENOL EXTRA500 MG PO (17:51)
[2017-04-06 17:53] LABS: INTER. NORMALIZED RATIO 1.7; PROTHROMBIN TIME 19.4 SEC (10.2-12.9)
[2017-04-06] MEDS ORDERED: POTASSIUM CHLO20 ME1 PO (17:53)
[2017-04-06] MEDS ORDERED: COZAAR25 MG PO (17:54)
[2017-04-06 19:58] VITALS: BP 106/58
[2017-04-06 21:11] LABS: TROP-I INTERPRETATION NEGATIVE; TROPONIN-I 0.01 ng/mL (0.0-0.30)
[2017-04-06 22:03] LABS: POINT-OF-CARE METER ID UU14162513
[2017-04-07] VITALS (9 sets, daily range): BP systolic 96–112; BP diastolic 52–59
[2017-04-07 02:59] LABS: TROP-I INTERPRETATION NEGATIVE; TROPONIN-I < 0.01 ng/mL (0.0-0.30)
[2017-04-07 05:31] LABS: INTER. NORMALIZED RATIO 1.7; PROTHROMBIN TIME 19.3 SEC (10.2-12.9)
[2017-04-07 08:27] LABS: POINT-OF-CARE METER ID UU13113831
[2017-04-07 12:36] LABS: POINT-OF-CARE METER ID UU13113831
[2017-04-07 22:20] LABS: POINT-OF-CARE METER ID UU13113725
[2017-04-08 05:46] VITALS: BP 106/56
[2017-04-08 05:57] VITALS: BP 106/56
[2017-04-08 07:01] LABS: POINT-OF-CARE METER ID UU13113725
[2017-04-08 07:43] VITALS: BP 115/57
[2017-04-08 09:27] LABS: INTER. NORMALIZED RATIO 2.3; PROTHROMBIN TIME 26.5 SEC (10.2-12.9)
[2017-04-08 11:32] VITALS: BP 157/58
[2017-04-08 12:06] LABS: POINT-OF-CARE METER ID UU13113725
[2017-04-08 16:35] LABS: POINT-OF-CARE METER ID UU13113725
[2017-04-08 17:16] VITALS: BP 124/59
[2017-04-08 20:02] VITALS: BP 102/51
[2017-04-08 21:53] LABS: POINT-OF-CARE METER ID UU13113725
[2017-04-09 00:50] VITALS: BP 110/56
[2017-04-09 03:33] VITALS: BP 116/55
[2017-04-09 06:23] LABS: EOSINOPHIL (%) 0 % (0-5); HEMATOCRIT 33.7 % (36.0-46.0); IMMATURE GRANULOCYTE (%) 0.7 % (0.0-0.7); IMMATURE GRANULOCYTE COUNT 0.1 K/uL; INSTRUMENT ABS NEUTROPHIL CT 5.7 K/uL; LYMPHOCYTE COUNT 0.6 K/uL (1.0-2.8); MCH 29.3 PG (29.0-34.0); MCHC 30.9 G/DL (30.0-36.0); MCV 94.9 FL (83-99); MEAN PLAT.VOLUME 11.2 uM^3 (9.5-12.4); MONOCYTE (%) 5.3 % (3-12); MONOCYTE COUNT 0.4 K/uL (0-0.8); NEUTROPHIL (%) 84.7 % (45-76); NEUTROPHIL COUNT 5.7 K/uL (1.8-6.4); PLATELET COUNT 240 K/uL (156-360); RBC DIS.WIDTH-CV 14.5 % (11.8-14.6); RBC DIS.WIDTH-SD 50.5 % (39-53); RED BLOOD COUNT 3.55 M/uL (3.80-5.20); WHITE BLOOD COUNT 6.8 K/uL (4.1-10.2)
[2017-04-09 06:30] LABS: INTER. NORMALIZED RATIO 2.4; PROTHROMBIN TIME 27.8 SEC (10.2-12.9)
[2017-04-09 06:52] LABS: ALKALINE PHOSPHATASE 64 IU/L (3-129); ANION GAP 6 MEQ/L (2-14); CHLORIDE 105 MEQ/L (99-109); GFR ESTIMATE (CALCULATED) > 59 mL/min/; GLUCOSE 238 mg/dL (70-99); POTASSIUM 4.1 MEQ/L (3.7-5.4); SAMPLE HEMOLYSIS CHECK 0; SAMPLE ICTERIC CHECK 0; SAMPLE LIPEMIA CHECK 0; SODIUM 141 MEQ/L (136-147); TOTAL BILIRUBIN 0.2 MG/DL (0.0-1.0); UREA NITROGEN (BUN) 15 mg/dL (9-23)
[2017-04-09 07:30] VITALS: BP 120/57
[2017-04-09 11:35] VITALS: BP 121/61
[2017-04-09 11:55] LABS: POINT-OF-CARE METER ID UU13113725
[2017-04-09 12:13] LABS: POINT-OF-CARE METER ID UU13113725
[2017-04-09 19:15] VITALS: BP 115/61
[2017-04-09 23:48] VITALS: BP 118/68
[2017-04-10 04:28] VITALS: BP 116/68
[2017-04-10 06:03] LABS: EOSINOPHIL (%) 0.3 % (0-5); HEMATOCRIT 34.3 % (36.0-46.0); IMMATURE GRANULOCYTE (%) 0.5 % (0.0-0.7); INSTRUMENT ABS NEUTROPHIL CT 4.8 K/uL; MCH 29.5 PG (29.0-34.0); MCHC 30.6 G/DL (30.0-36.0); MCV 96.3 FL (83-99); MEAN PLAT.VOLUME 11.1 uM^3 (9.5-12.4); MONOCYTE (%) 10.2 % (3-12); MONOCYTE COUNT 0.8 K/uL (0-0.8); NEUTROPHIL COUNT 4.8 K/uL (1.8-6.4); PLATELET COUNT 227 K/uL (156-360); RBC DIS.WIDTH-CV 14.8 % (11.8-14.6); RBC DIS.WIDTH-SD 52.5 % (39-53); RED BLOOD COUNT 3.56 M/uL (3.80-5.20); WHITE BLOOD COUNT 7.6 K/uL (4.1-10.2)
[2017-04-10 06:34] LABS: POINT-OF-CARE METER ID UU13113725
[2017-04-10 06:37] LABS: ALKALINE PHOSPHATASE 58 IU/L (3-129); ANION GAP 6 MEQ/L (2-14); CHLORIDE 109 MEQ/L (99-109); GFR ESTIMATE (CALCULATED) > 59 mL/min/; GLUCOSE 66 mg/dL (70-99); POTASSIUM 3.6 MEQ/L (3.7-5.4); SAMPLE HEMOLYSIS CHECK 0; SAMPLE ICTERIC CHECK 0; SAMPLE LIPEMIA CHECK 0; SODIUM 146 MEQ/L (136-147); TOTAL BILIRUBIN 0.2 MG/DL (0.0-1.0); UREA NITROGEN (BUN) 18 mg/dL (9-23)
[2017-04-10 07:44] VITALS: BP 120/61
[2017-04-10 10:22] VITALS: BP 121/58
[2017-04-10 10:48] LABS: INTER. NORMALIZED RATIO 2.5
[2017-04-10 11:20] LABS: POINT-OF-CARE METER ID UU13113725
[2017-04-10 11:37] LABS: POINT-OF-CARE METER ID UU13113725
[2017-04-10 15:49] VITALS: BP 140/60
[2017-04-10 19:23] VITALS: BP 117/62
[2017-04-10 23:45] VITALS: BP 91/53
[2017-04-11 02:55] VITALS: BP 106/56
[2017-04-11 06:26] LABS: EOSINOPHIL (%) 0.5 % (0-5); HEMATOCRIT 35.1 % (36.0-46.0); IMMATURE GRANULOCYTE (%) 0.5 % (0.0-0.7); LYMPHOCYTE COUNT 1.9 K/uL (1.0-2.8); MCH 29.3 PG (29.0-34.0); MCHC 30.8 G/DL (30.0-36.0); MCV 95.4 FL (83-99); MEAN PLAT.VOLUME 10.8 uM^3 (9.5-12.4); MONOCYTE (%) 9.6 % (3-12); MONOCYTE COUNT 0.8 K/uL (0-0.8); NEUTROPHIL (%) 64.5 % (45-76); PLATELET COUNT 241 K/uL (156-360); RBC DIS.WIDTH-CV 14.6 % (11.8-14.6); RBC DIS.WIDTH-SD 51.8 % (39-53); RED BLOOD COUNT 3.68 M/uL (3.80-5.20); WHITE BLOOD COUNT 7.8 K/uL (4.1-10.2)
[2017-04-11 06:32] LABS: INTER. NORMALIZED RATIO 2.7; PROTHROMBIN TIME 30.6 SEC (10.2-12.9)
[2017-04-11 06:58] LABS: ALKALINE PHOSPHATASE 57 IU/L (3-129); ANION GAP 4 MEQ/L (2-14); CHLORIDE 107 MEQ/L (99-109); GFR ESTIMATE (CALCULATED) > 59 mL/min/; POTASSIUM 3.8 MEQ/L (3.7-5.4); SAMPLE HEMOLYSIS CHECK 0; SAMPLE ICTERIC CHECK 0; SAMPLE LIPEMIA CHECK 0; SODIUM 144 MEQ/L (136-147); TOTAL BILIRUBIN 0.2 MG/DL (0.0-1.0); UREA NITROGEN (BUN) 16 mg/dL (9-23)
[2017-04-11 06:59] LABS: GLUCOSE 84 mg/dL (70-99)
[2017-04-11 07:48] VITALS: BP 117/61
[2017-04-11 11:59] LABS: POINT-OF-CARE METER ID UU13113725
[2017-04-11 12:36] VITALS: BP 112/59
[2017-04-11 17:15] VITALS: BP 129/61
[2017-04-11 19:31] VITALS: BP 121/61
[2017-04-12 00:08] VITALS: BP 124/64
[2017-04-12 03:57] VITALS: BP 136/84
[2017-04-12 07:04] LABS: Estimated Average Glucose 148 mg/dL (70-123); HEMOGLOBIN A1c (GLYCOHEMOGLOB) 6.8 % HGB (Below 5.7)
[2017-04-12 07:10] LABS: INTER. NORMALIZED RATIO 2.7; PROTHROMBIN TIME 30.8 SEC (10.2-12.9)
[2017-04-12 08:45] VITALS: BP 140/70
[2017-04-12 10:57] LABS: POINT-OF-CARE METER ID UU13113725
[2017-04-12] MEDS ORDERED: CEFTIN500 MG PO (11:09)
[2017-04-12] MEDS ORDERED: NICOTINE PATCH1 EAC2 TD (11:09)
[2017-04-12] MEDS ORDERED: PREDNISONE10 MG PO (11:10)
[2017-04-12] MEDS ORDERED: ADVAIR 250/501 DISK IH (11:14)
[2017-04-12 11:55] VITALS: BP 138/70
[2017-04-12 16:00] VITALS: BP 119/68
[2017-04-12 16:49] LABS: POINT-OF-CARE METER ID UU13113725
[2017-04-12] MEDS ORDERED: SPIRIVA RESPIMAT4 GM IH (18:41)
== END 2017-04-12 19:33 | disposition home or self-care (01) | DRG 190 ==
LOC: EME 13:44 → EDOF 16:56 → 5WEST 16:56 → ENRESERV 17:04 → 5WEST 19:53 → ENRESERV 04-07 → 5WEST 04-07 12:21 → ENRESERV 04-07 12:44 → 5EAST 04-07 16:57 → ENPENDDIS 04-12 → 5EAST 04-12 19:33
PROVIDERS: Emergency Medicine; Hospitalist; Internal Medicine
DX: J44.1 Chronic obstructive pulmonary disease with (acute) exacerbation (principal); J96.21 Acute and chronic respiratory failure with hypoxia; Z68.45 Body mass index [BMI] 70 or greater, adult; E66.2 Morbid (severe) obesity with alveolar hypoventilation; K21.9 Gastro-esophageal reflux disease without esophagitis; Z99.81 Dependence on supplemental oxygen; J44.0 Chronic obstructive pulmonary disease with (acute) lower respiratory infection; E78.5 Hyperlipidemia, unspecified; F41.9 Anxiety disorder, unspecified; E11.9 Type 2 diabetes mellitus without complications; F32.9 Major depressive disorder, single episode, unspecified; I25.119 Atherosclerotic heart disease of native coronary artery with unspecified angina pectoris; R26.2 Difficulty in walking, not elsewhere classified; G47.33 Obstructive sleep apnea (adult) (pediatric); R00.0 Tachycardia, unspecified; H40.9 Unspecified glaucoma; J20.9 Acute bronchitis, unspecified; I10 Essential (primary) hypertension; G25.81 Restless legs syndrome; E03.9 Hypothyroidism, unspecified; L73.2 Hidradenitis suppurativa; L02.92 Furuncle, unspecified; I25.2 Old myocardial infarction; R07.89 Other chest pain; Z88.1 Allergy status to other antibiotic agents; Z86.711 Personal history of pulmonary embolism; Z98.61 Coronary angioplasty status; Z79.4 Long term (current) use of insulin
CPT/HCPCS: 71010; 71020; 80048; 80053; 82948; 83036; 83605; 83880; 84484; 85025; 85027; 85610; 87070; 87075; 87205; 93005; 94640; 94640 76; 94667; 94668; 94760; 94799; 99281; 99285; G0378; J0696; J1815; J2920; J7030; J7050; J7512

== ENCOUNTER 2017-04-21 22:37 | Inpatient (IN) | payer OTHER ==
[~2017-04-21] VITALS: Ht 149.9 cm; Wt 162.9 kg
[~2017-04-21 22:37] MED LIST changes: +ADVAIR 250/501 DISK IH; +COZAAR25 MG PO; +NICOTINE PATCH1 EAC2 TD; +SPIRIVA RESPIMAT4 GM IH; +TYLENOL EXTRA500 MG PO
[2017-04-21 23:24] LABS: HEMATOCRIT 38.3 % (36.0-46.0); MCH 29.9 PG (29.0-34.0); MCHC 30.8 G/DL (30.0-36.0); MEAN PLAT.VOLUME 10.4 uM^3 (9.5-12.4); PLATELET COUNT 242 K/uL (156-360); RBC DIS.WIDTH-CV 16.9 % (11.8-14.6); RBC DIS.WIDTH-SD 58.4 % (39-53); RED BLOOD COUNT 3.95 M/uL (3.80-5.20); WHITE BLOOD COUNT 12.4 K/uL (4.1-10.2)
[2017-04-21 23:36] LABS: PTT 21.3 SEC (25-37)
[2017-04-21 23:38] LABS: CHLORIDE 107 mEq/L (99-109); POTASSIUM 3.8 mEq/L (3.7-5.4); PROTHROMBIN TIME 10.9 SEC (10.2-12.9); SODIUM 145 mEq/L (136-147)
[2017-04-21 23:39] LABS: GLUCOSE 103 mg/dL (70-99)
[2017-04-21 23:41] LABS: ANION GAP 10 MEQ/L (2-14)
[2017-04-21 23:43] LABS: GFR ESTIMATE (CALCULATED) > 59 mL/min/
[2017-04-21 23:44] LABS: UREA NITROGEN (BUN) 12 mg/dL (9-23)
[2017-04-21 23:46] LABS: TROP-I INTERPRETATION NEGATIVE; TROPONIN-I < 0.01 ng/mL (0.0-0.30)
[2017-04-22 02:46] LABS: TOTAL BILIRUBIN 0.3 mg/dL (0.0-1.0)
[2017-04-22 02:47] LABS: ALKALINE PHOSPHATASE 72 IU/L (3-129)
[2017-04-22 02:49] LABS: DIRECT BILIRUBIN 0.1 mg/dL (0.0-0.3)
[2017-04-22 02:50] LABS: LIPASE 27 U/L (1.0-51.0)
[2017-04-22 03:22] VITALS: BP 109/55
[2017-04-22 05:35] LABS: HEMATOCRIT 35.9 % (36.0-46.0); MCH 29.6 PG (29.0-34.0); MCHC 30.9 G/DL (30.0-36.0); MCV 95.7 FL (83-99); MEAN PLAT.VOLUME 10.4 uM^3 (9.5-12.4); PLATELET COUNT 212 K/uL (156-360); RBC DIS.WIDTH-SD 58.6 % (39-53); RED BLOOD COUNT 3.75 M/uL (3.80-5.20); WHITE BLOOD COUNT 10.7 K/uL (4.1-10.2)
[2017-04-22 05:57] LABS: TROP-I INTERPRETATION NEGATIVE
[2017-04-22 06:14] LABS: ANION GAP 9 MEQ/L (2-14); CHLORIDE 107 MEQ/L (99-109); POTASSIUM 3.7 MEQ/L (3.7-5.4); SAMPLE HEMOLYSIS CHECK 0; SAMPLE ICTERIC CHECK 0; SAMPLE LIPEMIA CHECK 0; SODIUM 144 MEQ/L (136-147)
[2017-04-22 06:20] LABS: GFR ESTIMATE (CALCULATED) > 59 mL/min/; GLUCOSE 96 mg/dL (70-99); UREA NITROGEN (BUN) 12 mg/dL (9-23)
[2017-04-22 12:01] VITALS: BP 110/77
[2017-04-22 13:42] LABS: TROP-I INTERPRETATION INDETERMINATE; TROPONIN-I 0.54 ng/mL (0.0-0.30)
[2017-04-22 16:23] VITALS: BP 112/63
[2017-04-22 18:30] LABS: TROP-I INTERPRETATION INDETERMINATE; TROPONIN-I 0.45 ng/mL (0.0-0.30)
[2017-04-22 20:25] VITALS: BP 107/60
[2017-04-22 21:53] LABS: POINT-OF-CARE METER ID UU13113831
[2017-04-23 01:27] VITALS: BP 99/54
[2017-04-23 04:42] VITALS: BP 123/66
[2017-04-23 08:00] LABS: INTER. NORMALIZED RATIO 1.2; PROTHROMBIN TIME 12.7 SEC (10.2-12.9)
[2017-04-23 08:15] VITALS: BP 96/52
[2017-04-23] MEDS ORDERED: AMOX TR-K CLV1 EAC4 PO (11:24)
[2017-04-23 12:05] VITALS: BP 105/55
[2017-04-23 12:26] LABS: POINT-OF-CARE METER ID UU13113700
== END 2017-04-23 13:32 | disposition home or self-care (01) | DRG 313 ==
LOC: EME → EDBD 22:37 → EME 22:37 → EDOF 04-22 01:59 → 5WEST 04-22 01:59 → ENRESERV 04-22 02:00 → 5WEST 04-22 03:01 → CANRESERV 04-23 10:56 → ENRESERV 04-23 10:56 → 5WEST 04-23 13:32
PROVIDERS: Emergency Medicine; Hospitalist; Nurse Practitioner Adult Health
DX: R07.89 Other chest pain (principal); J96.21 Acute and chronic respiratory failure with hypoxia; I25.10 Atherosclerotic heart disease of native coronary artery without angina pectoris; L02.214 Cutaneous abscess of groin; J44.9 Chronic obstructive pulmonary disease, unspecified; I10 Essential (primary) hypertension; E11.65 Type 2 diabetes mellitus with hyperglycemia; G47.33 Obstructive sleep apnea (adult) (pediatric); E66.01 Morbid (severe) obesity due to excess calories; Z68.45 Body mass index [BMI] 70 or greater, adult; Z91.19 Patient's noncompliance with other medical treatment and regimen; Z99.81 Dependence on supplemental oxygen; M79.602 Pain in left arm; L73.2 Hidradenitis suppurativa; E78.5 Hyperlipidemia, unspecified; K21.9 Gastro-esophageal reflux disease without esophagitis; E03.9 Hypothyroidism, unspecified; F17.210 Nicotine dependence, cigarettes, uncomplicated; F32.1 Major depressive disorder, single episode, moderate; F41.1 Generalized anxiety disorder; G25.81 Restless legs syndrome; H40.9 Unspecified glaucoma; Z86.711 Personal history of pulmonary embolism; I25.2 Old myocardial infarction; Z86.718 Personal history of other venous thrombosis and embolism; Z95.5 Presence of coronary angioplasty implant and graft
CPT/HCPCS: 71020; 80048; 80076; 82948; 83690; 84484; 85027; 85379; 85610; 85730; 93005; 94640; 94640 76; 94799; 99202; 99281; 99285; G0378; J1650; J2270

== ENCOUNTER 2017-05-02 13:20 | Inpatient (IN) | payer OTHER ==
[~2017-05-02] VITALS: Ht 149.9 cm; Wt 190.9 kg
[2017-05-02 14:25] LABS: EOSINOPHIL (%) 1.1 % (0-5); EOSINOPHIL COUNT 0.1 K/uL (0-0.3); HEMATOCRIT 37.8 % (36.0-46.0); IMMATURE GRANULOCYTE (%) 0.5 % (0.0-0.7); INSTRUMENT ABS NEUTROPHIL CT 5.5 K/uL; LYMPHOCYTE COUNT 0.7 K/uL (1.0-2.8); MCH 30.2 PG (29.0-34.0); MCHC 30.7 G/DL (30.0-36.0); MCV 98.4 FL (83-99); MEAN PLAT.VOLUME 10.9 uM^3 (9.5-12.4); MONOCYTE (%) 5.1 % (3-12); MONOCYTE COUNT 0.3 K/uL (0-0.8); NEUTROPHIL COUNT 5.5 K/uL (1.8-6.4); PLATELET COUNT 216 K/uL (156-360); RBC DIS.WIDTH-CV 16.1 % (11.8-14.6); RBC DIS.WIDTH-SD 59.6 % (39-53); RED BLOOD COUNT 3.84 M/uL (3.80-5.20); WHITE BLOOD COUNT 6.7 K/uL (4.1-10.2)
[2017-05-02 14:32] LABS: INTER. NORMALIZED RATIO 1.2; PROTHROMBIN TIME 12.7 SEC (10.2-12.9)
[2017-05-02 14:35] LABS: PTT 24.6 SEC (25-37)
[2017-05-02 14:46] LABS: TROP-I INTERPRETATION NEGATIVE; TROPONIN-I < 0.01 ng/mL (0.0-0.30)
[2017-05-02 15:04] LABS: CHLORIDE 107 mEq/L (99-109); POTASSIUM 4.7 mEq/L (3.7-5.4); SODIUM 140 mEq/L (136-147)
[2017-05-02 15:06] LABS: GLUCOSE 222 mg/dL (70-99)
[2017-05-02 15:07] LABS: ANION GAP 9 MEQ/L (2-14)
[2017-05-02 15:08] LABS: TOTAL BILIRUBIN 0.3 mg/dL (0.0-1.0)
[2017-05-02 15:10] LABS: ALKALINE PHOSPHATASE 84 IU/L (3-129); GFR ESTIMATE (CALCULATED) > 59 mL/min/
[2017-05-02 15:11] LABS: UREA NITROGEN (BUN) 9 mg/dL (9-23)
[2017-05-02 23:04] VITALS: BP 109/55
[2017-05-03 04:14] VITALS: BP 115/60
[2017-05-03 05:45] LABS: INTER. NORMALIZED RATIO 1.3; PROTHROMBIN TIME 14.1 SEC (10.2-12.9)
[2017-05-03 08:40] VITALS: BP 115/70
[2017-05-03 11:29] VITALS: BP 126/71
[2017-05-03 12:49] LABS: POINT-OF-CARE METER ID UU14162513
[2017-05-03 15:56] VITALS: BP 148/84
[2017-05-03 17:01] LABS: POINT-OF-CARE METER ID UU13113831
[2017-05-03 19:30] VITALS: BP 124/55
[2017-05-04 01:01] VITALS: BP 109/62
[2017-05-04 04:35] VITALS: BP 104/53
[2017-05-04 05:37] LABS: INTER. NORMALIZED RATIO 1.9
[2017-05-04 06:28] LABS: PROTHROMBIN TIME 21.5 SEC (10.2-12.9)
[2017-05-04 08:07] LABS: POINT-OF-CARE METER ID UU14162513
[2017-05-04 11:54] VITALS: BP 110/62
[2017-05-04 12:37] LABS: POINT-OF-CARE METER ID UU14162513
[2017-05-04 16:03] VITALS: BP 156/61
[2017-05-04 17:24] LABS: POINT-OF-CARE METER ID UU14162513
[2017-05-04 19:35] VITALS: BP 125/87
[2017-05-04 22:49] LABS: POINT-OF-CARE METER ID UU14162513
[2017-05-05 00:09] VITALS: BP 177/97
[2017-05-05 03:58] VITALS: BP 125/72
[2017-05-05 06:02] LABS: INTER. NORMALIZED RATIO 2.1; PROTHROMBIN TIME 23.7 SEC (10.2-12.9)
[2017-05-05 07:15] VITALS: BP 119/56
[2017-05-05] MEDS ORDERED: PREDNISONE10 MG PO (11:53)
[2017-05-05 12:24] LABS: POINT-OF-CARE METER ID UU13113700
[2017-05-05 13:45] VITALS: BP 102/57
== END 2017-05-05 16:32 | disposition home health service (06) | DRG 191 ==
LOC: EME 13:20 → EDOF 20:49 → ENRESERV 20:51 → 5WEST 22:26 → CANRESERV 05-05 08:32 → ENRESERV 05-05 08:32 → 5WEST 05-05 16:32
PROVIDERS: Emergency Medicine; Hospitalist
DX: J44.0 Chronic obstructive pulmonary disease with (acute) lower respiratory infection (principal); Z68.45 Body mass index [BMI] 70 or greater, adult; J96.11 Chronic respiratory failure with hypoxia; F33.9 Major depressive disorder, recurrent, unspecified; J44.1 Chronic obstructive pulmonary disease with (acute) exacerbation; J20.9 Acute bronchitis, unspecified; K21.9 Gastro-esophageal reflux disease without esophagitis; I10 Essential (primary) hypertension; I25.10 Atherosclerotic heart disease of native coronary artery without angina pectoris; G47.33 Obstructive sleep apnea (adult) (pediatric); F17.210 Nicotine dependence, cigarettes, uncomplicated; E03.9 Hypothyroidism, unspecified; E11.65 Type 2 diabetes mellitus with hyperglycemia; E66.01 Morbid (severe) obesity due to excess calories; E78.5 Hyperlipidemia, unspecified; G25.81 Restless legs syndrome; L73.2 Hidradenitis suppurativa; R00.0 Tachycardia, unspecified; H40.9 Unspecified glaucoma; Z79.01 Long term (current) use of anticoagulants; Z79.82 Long term (current) use of aspirin; Z79.84 Long term (current) use of oral hypoglycemic drugs; I25.2 Old myocardial infarction; Z86.711 Personal history of pulmonary embolism; Z86.718 Personal history of other venous thrombosis and embolism; Z91.19 Patient's noncompliance with other medical treatment and regimen; Z98.61 Coronary angioplasty status; Z99.81 Dependence on supplemental oxygen; Z82.5 Family history of asthma and other chronic lower respiratory diseases; Z82.49 Family history of ischemic heart disease and other diseases of the circulatory system
CPT/HCPCS: 71010; 80053; 82948; 83880; 84484; 85025; 85610; 85730; 93005; 94640; 94640 76; 94799; 99202; 99281; 99285; G0378; J1100; J1650; J1815; J2920; J2930; J7050; J7644

== ENCOUNTER 2017-06-09 17:05 | Inpatient (IN) | payer OTHER ==
[~2017-06-09] VITALS: Ht 149.9 cm; Wt 161.5 kg
[~2017-06-09 17:05] MED LIST changes: +PROTONIX40 MG PO
[2017-06-09 17:31] LABS: HEMATOCRIT 39.8 % (36.0-46.0); MCH 30.4 PG (29.0-34.0); MCHC 31.2 G/DL (30.0-36.0); MCV 97.5 FL (83-99); MEAN PLAT.VOLUME 10.9 uM^3 (9.5-12.4); RBC DIS.WIDTH-CV 14.7 % (11.8-14.6); RBC DIS.WIDTH-SD 52.6 % (39-53); RED BLOOD COUNT 4.08 M/uL (3.80-5.20); WHITE BLOOD COUNT 12.2 K/uL (4.1-10.2)
[2017-06-09 17:37] LABS: INTER. NORMALIZED RATIO 2.1; PROTHROMBIN TIME 24.1 SEC (10.2-12.9)
[2017-06-09 17:40] LABS: PTT 29.6 SEC (25-37)
[2017-06-09 17:42] LABS: PLATELET COUNT 232 K/uL (156-360)
[2017-06-09 17:45] LABS: CHLORIDE 101 mEq/L (99-109); POTASSIUM 3.9 mEq/L (3.7-5.4); SODIUM 141 mEq/L (136-147)
[2017-06-09 17:46] LABS: GLUCOSE 183 mg/dL (70-99)
[2017-06-09 17:48] LABS: ANION GAP 10 MEQ/L (2-14)
[2017-06-09 17:50] LABS: GFR ESTIMATE (CALCULATED) 52 mL/min/
[2017-06-09 17:51] LABS: UREA NITROGEN (BUN) 11 mg/dL (9-23)
[2017-06-09 17:55] LABS: TROP-I INTERPRETATION NEGATIVE; TROPONIN-I < 0.01 ng/mL (0.0-0.30)
[2017-06-09] MEDS ORDERED: GLIPIZIDE XL10 MG PO (19:22)
[2017-06-09 21:16] VITALS: BP 115/47
[2017-06-09 22:37] LABS: POINT-OF-CARE METER ID UU14100415
[2017-06-10 00:47] VITALS: BP 97/62
[2017-06-10 03:57] VITALS: BP 91/50
[2017-06-10 07:04] VITALS: BP 102/58
[2017-06-10 07:49] LABS: HEMATOCRIT 36.8 % (36.0-46.0); MCH 29.9 PG (29.0-34.0); MCHC 30.7 G/DL (30.0-36.0); MCV 97.4 FL (83-99); MEAN PLAT.VOLUME 11.3 uM^3 (9.5-12.4); PLATELET COUNT 218 K/uL (156-360); RBC DIS.WIDTH-CV 14.6 % (11.8-14.6); RBC DIS.WIDTH-SD 52.1 % (39-53); RED BLOOD COUNT 3.78 M/uL (3.80-5.20); WHITE BLOOD COUNT 5.9 K/uL (4.1-10.2)
[2017-06-10 08:06] LABS: PROTHROMBIN TIME 22.7 SEC (10.2-12.9)
[2017-06-10 08:14] LABS: ANION GAP 10 MEQ/L (2-14); CHLORIDE 104 MEQ/L (99-109); GFR ESTIMATE (CALCULATED) > 59 mL/min/; GLUCOSE 221 mg/dL (70-99); POTASSIUM 4.3 MEQ/L (3.7-5.4); SAMPLE HEMOLYSIS CHECK 0; SAMPLE ICTERIC CHECK 0; SAMPLE LIPEMIA CHECK 0; SODIUM 141 MEQ/L (136-147); UREA NITROGEN (BUN) 11 mg/dL (9-23)
[2017-06-10 11:45] VITALS: BP 102/56
[2017-06-10 12:05] LABS: POINT-OF-CARE METER ID UU14208753
[2017-06-10 14:18] LABS: BASE EXCESS 6.9 mEq/L (-3 to +3); BICARBONATE 33.3 mEq/L (22-26); CARBOXY HGB 1.8 % (0-5); METHEMOGLOBIN 1.3 % (0-1.5); PCO2 55 mm Hg (35-45); PO2 76 mm Hg (80-100); pH 7.39 (7.35-7.45)
[2017-06-10 14:19] LABS: COMMENTS - BLOOD GASES A+C+; DEVICE NC; O2 FLOW 5 L/MIN; SITE RR; TOTAL RESP RATE 17 resp/min
[2017-06-10 15:43] VITALS: BP 110/56
[2017-06-10 17:20] LABS: POINT-OF-CARE METER ID UU14208753
[2017-06-10 19:39] VITALS: BP 137/65
[2017-06-10 21:35] LABS: ADD MIUA? YES; BILIRUBIN NEGATIVE; BLOOD SMALL; COLOR AMBER ((YELLOW)); GLUCOSE (STRIP) NEGATIVE; KETONES 5; LEUKOCYTES NEGATIVE; NITRITE NEGATIVE; PROTEIN (STRIP) NEGATIVE; UROBILINOGEN 0.2 MG/DL (0.2-1.0)
[2017-06-10 21:41] LABS: BACTERIA RARE /HPF; EPITHELIAL CELLS 1+ /HPF; MUCUS NONE SEEN /LPF; RED BLOOD CELLS NONE SEEN /HPF (0-5); UCUL ADDED? YES
[2017-06-10 22:08] LABS: POINT-OF-CARE METER ID UU14208753
[2017-06-11] VITALS (7 sets, daily range): BP systolic 104–142; BP diastolic 54–80
[2017-06-11 05:15] LABS: BASE EXCESS 7.9 mEq/L (-3 to +3); BICARBONATE 34.1 mEq/L (22-26); CARBOXY HGB 1.3 % (0-5); METHEMOGLOBIN 1.4 % (0-1.5); PCO2 55 mm Hg (35-45); PO2 74 mm Hg (80-100)
[2017-06-11 05:16] LABS: COMMENTS - BLOOD GASES A+C+; DEVICE NC; O2 FLOW 4 L/MIN; SITE LR; TOTAL RESP RATE 16 resp/min
[2017-06-11 06:28] LABS: POINT-OF-CARE METER ID UU14117124
[2017-06-11 06:46] LABS: EOSINOPHIL (%) 0 % (0-5); HEMATOCRIT 35.9 % (36.0-46.0); IMMATURE GRANULOCYTE (%) 0.6 % (0.0-0.7); IMMATURE GRANULOCYTE COUNT 0.1 K/uL; INSTRUMENT ABS NEUTROPHIL CT 6.9 K/uL; LYMPHOCYTE COUNT 0.6 K/uL (1.0-2.8); MCHC 30.6 G/DL (30.0-36.0); MCV 97.8 FL (83-99); MEAN PLAT.VOLUME 11.2 uM^3 (9.5-12.4); MONOCYTE (%) 2.8 % (3-12); MONOCYTE COUNT 0.2 K/uL (0-0.8); NEUTROPHIL (%) 88.9 % (45-76); NEUTROPHIL COUNT 6.9 K/uL (1.8-6.4); PLATELET COUNT 240 K/uL (156-360); RBC DIS.WIDTH-CV 14.6 % (11.8-14.6); RBC DIS.WIDTH-SD 52.2 % (39-53); RED BLOOD COUNT 3.67 M/uL (3.80-5.20); WHITE BLOOD COUNT 7.8 K/uL (4.1-10.2)
[2017-06-11 07:03] LABS: INTER. NORMALIZED RATIO 3.6; PROTHROMBIN TIME 41.4 SEC (10.2-12.9)
[2017-06-11 07:11] LABS: ANION GAP 7 MEQ/L (2-14); CHLORIDE 104 MEQ/L (99-109); GFR ESTIMATE (CALCULATED) > 59 mL/min/; GLUCOSE 252 mg/dL (70-99); POTASSIUM 4.1 MEQ/L (3.7-5.4); SAMPLE HEMOLYSIS CHECK 0; SAMPLE ICTERIC CHECK 0; SAMPLE LIPEMIA CHECK 0; SODIUM 141 MEQ/L (136-147); UREA NITROGEN (BUN) 15 mg/dL (9-23)
[2017-06-11 10:07] LABS: POINT-OF-CARE METER ID UU14117124
[2017-06-11 11:21] LABS: POINT-OF-CARE METER ID UU14208753
[2017-06-11 16:09] LABS: POINT-OF-CARE METER ID UU14188577
[2017-06-11 21:03] LABS: POINT-OF-CARE METER ID UU14117124
[2017-06-12 03:57] VITALS: BP 116/64
[2017-06-12 06:16] LABS: HEMATOCRIT 35.4 % (36.0-46.0); MCH 30.4 PG (29.0-34.0); MCHC 31.6 G/DL (30.0-36.0); MCV 96.2 FL (83-99); MEAN PLAT.VOLUME 11.5 uM^3 (9.5-12.4); PLATELET COUNT 225 K/uL (156-360); RBC DIS.WIDTH-CV 14.4 % (11.8-14.6); RBC DIS.WIDTH-SD 50.7 % (39-53); RED BLOOD COUNT 3.68 M/uL (3.80-5.20); WHITE BLOOD COUNT 7.1 K/uL (4.1-10.2)
[2017-06-12 06:20] LABS: INTER. NORMALIZED RATIO 3.3; PROTHROMBIN TIME 38.2 SEC (10.2-12.9)
[2017-06-12 06:39] LABS: ANION GAP 7 MEQ/L (2-14); CHLORIDE 101 MEQ/L (99-109); GFR ESTIMATE (CALCULATED) 57 mL/min/; GLUCOSE 337 mg/dL (70-99); POTASSIUM 4.4 MEQ/L (3.7-5.4); SAMPLE HEMOLYSIS CHECK 1; SAMPLE ICTERIC CHECK 0; SAMPLE LIPEMIA CHECK 0; SODIUM 138 MEQ/L (136-147); UREA NITROGEN (BUN) 19 mg/dL (9-23)
[2017-06-12 06:48] LABS: POINT-OF-CARE METER ID UU14188577
[2017-06-12 07:14] VITALS: BP 136/70
[2017-06-12] MEDS ORDERED: MEDROL DOSEPAK4 MG PO (10:25)
[2017-06-12] MEDS ORDERED: AZITHROMYCIN500 M1 PO (10:26)
[2017-06-12 11:05] LABS: POINT-OF-CARE METER ID UU14208753
[2017-06-12 11:19] VITALS: BP 120/60
== END 2017-06-12 12:38 | disposition home or self-care (01) | DRG 191 ==
LOC: EME 17:05 → EDOF 20:01 → 3EAST 20:01 → ENRESERV 20:07 → EDOF 21:30 → ENRESERV 23:48 → 3EAST 06-10 03:37
PROVIDERS: Emergency Medicine; Hospitalist; Internal Medicine; Physician Assistant
DX: J44.1 Chronic obstructive pulmonary disease with (acute) exacerbation (principal); J20.9 Acute bronchitis, unspecified; L02.214 Cutaneous abscess of groin; E66.01 Morbid (severe) obesity due to excess calories; J44.0 Chronic obstructive pulmonary disease with (acute) lower respiratory infection; R04.2 Hemoptysis; J96.11 Chronic respiratory failure with hypoxia; E11.65 Type 2 diabetes mellitus with hyperglycemia; F17.200 Nicotine dependence, unspecified, uncomplicated; E03.9 Hypothyroidism, unspecified; I11.0 Hypertensive heart disease with heart failure; I50.9 Heart failure, unspecified; E78.5 Hyperlipidemia, unspecified; G47.33 Obstructive sleep apnea (adult) (pediatric); I25.10 Atherosclerotic heart disease of native coronary artery without angina pectoris; K21.9 Gastro-esophageal reflux disease without esophagitis; F41.9 Anxiety disorder, unspecified; F32.9 Major depressive disorder, single episode, unspecified; H40.9 Unspecified glaucoma; L73.2 Hidradenitis suppurativa; G25.81 Restless legs syndrome; K59.00 Constipation, unspecified; Z99.81 Dependence on supplemental oxygen; Z86.711 Personal history of pulmonary embolism; Z86.718 Personal history of other venous thrombosis and embolism; Z91.19 Patient's noncompliance with other medical treatment and regimen; Z91.14 Patient's other noncompliance with medication regimen; Z68.45 Body mass index [BMI] 70 or greater, adult; I25.2 Old myocardial infarction; Z79.82 Long term (current) use of aspirin; Z79.01 Long term (current) use of anticoagulants; Z95.5 Presence of coronary angioplasty implant and graft; Z90.49 Acquired absence of other specified parts of digestive tract; Z74.01 Bed confinement status; Z82.49 Family history of ischemic heart disease and other diseases of the circulatory system; Z82.5 Family history of asthma and other chronic lower respiratory diseases
CPT/HCPCS: 36600; 71010; 71020; 80048; 81003; 82803; 82948; 83605; 83880; 84439; 84443; 84484; 85025; 85027; 85379; 85610; 85730; 87070; 87086; 87205; 93005; 94640; 94640 76; 94799; 99202; 99281; 99285; A6212; J1815; J2930; J7512; J7644

== ENCOUNTER 2017-07-04 11:58 | Observation (INO) | payer OTHER ==
[~2017-07-04] VITALS: Ht 149.9 cm; Wt 161.0 kg
[~2017-07-04 11:58] MED LIST changes: +MEDROL DOSEPAK4 MG PO
[2017-07-04 12:59] LABS: HEMATOCRIT 42.8 % (36.0-46.0); MCH 29.8 PG (29.0-34.0); MCHC 30.8 G/DL (30.0-36.0); MCV 96.6 FL (83-99); MEAN PLAT.VOLUME 11.8 uM^3 (9.5-12.4); PLATELET COUNT 280 K/uL (156-360); RBC DIS.WIDTH-CV 14.1 % (11.8-14.6); RBC DIS.WIDTH-SD 50.4 % (39-53); WHITE BLOOD COUNT 8.9 K/uL (4.1-10.2)
[2017-07-04 13:00] LABS: RED BLOOD COUNT 4.43 M/uL (3.80-5.20)
[2017-07-04 13:01] LABS: INTER. NORMALIZED RATIO 1.1; PROTHROMBIN TIME 12.1 SEC (10.2-12.9)
[2017-07-04 13:03] LABS: CHLORIDE 103 mEq/L (99-109); POTASSIUM 4.5 mEq/L (3.7-5.4); SODIUM 139 mEq/L (136-147)
[2017-07-04 13:05] LABS: GLUCOSE 249 mg/dL (70-99)
[2017-07-04 13:06] LABS: ANION GAP 12 MEQ/L (2-14)
[2017-07-04 13:09] LABS: GFR ESTIMATE (CALCULATED) > 59 mL/min/
[2017-07-04 13:10] LABS: UREA NITROGEN (BUN) 9 mg/dL (9-23)
[2017-07-04 13:14] LABS: TROP-I INTERPRETATION NEGATIVE; TROPONIN-I < 0.01 ng/mL (0.0-0.30)
[2017-07-04 13:17] LABS: QUANTITATIVE HCG < 4.0 MIU/ML
[2017-07-04] MEDS ORDERED: FUROSEMIDE40 MG PO (15:54)
[2017-07-04] MEDS ORDERED: TRULICITY1.5 MG/0.5 SC (15:55)
[2017-07-04] MEDS ORDERED: WARFARIN SODIUM1 MG PO (15:57)
[2017-07-04] MEDS ORDERED: WARFARIN SODIUM5 MG PO (15:57)
[2017-07-04 16:57] VITALS: BP 106/60
[2017-07-04 17:26] LABS: POINT-OF-CARE METER ID UU14162513
[2017-07-04 19:10] VITALS: BP 108/56
[2017-07-04 19:19] LABS: TROP-I INTERPRETATION NEGATIVE; TROPONIN-I 0.18 ng/mL (0.0-0.30)
[2017-07-04 21:44] LABS: POINT-OF-CARE METER ID UU13113831
[2017-07-04 23:31] VITALS: BP 97/51
[2017-07-04 23:50] LABS: POINT-OF-CARE METER ID UU14162513
[2017-07-05 01:39] LABS: TROP-I INTERPRETATION INDETERMINATE
[2017-07-05 03:35] VITALS: BP 94/52
[2017-07-05 06:26] LABS: POINT-OF-CARE METER ID UU13113700
[2017-07-05 08:05] LABS: POINT-OF-CARE METER ID UU13113831
[2017-07-05 08:57] LABS: HEMATOCRIT 36.4 % (36.0-46.0); MCH 29.5 PG (29.0-34.0); MCHC 29.9 G/DL (30.0-36.0); MCV 98.6 FL (83-99); PLATELET COUNT 276 K/uL (156-360); RBC DIS.WIDTH-CV 14.2 % (11.8-14.6); RBC DIS.WIDTH-SD 51.4 % (39-53); RED BLOOD COUNT 3.69 M/uL (3.80-5.20); WHITE BLOOD COUNT 7.8 K/uL (4.1-10.2)
[2017-07-05 09:18] LABS: TROP-I INTERPRETATION INDETERMINATE
[2017-07-05 11:51] VITALS: BP 95/46
[2017-07-05 12:45] LABS: POINT-OF-CARE METER ID UU13113700
[2017-07-05 14:41] LABS: PTT 41.7 SEC (25-37)
[2017-07-05 15:00] LABS: TROP-I INTERPRETATION INDETERMINATE; TROPONIN-I 0.35 ng/mL (0.0-0.30)
[2017-07-05 15:15] LABS: INTER. NORMALIZED RATIO 1.2
[2017-07-05 15:52] VITALS: BP 94/50
[2017-07-05 19:00] VITALS: BP 102/57
[2017-07-05 21:26] LABS: POINT-OF-CARE METER ID UU13113700
[2017-07-05 23:46] VITALS: BP 110/51
[2017-07-06 04:00] VITALS: BP 96/58
[2017-07-06 05:28] LABS: INTER. NORMALIZED RATIO 1.3; PROTHROMBIN TIME 14.9 SEC (10.2-12.9)
[2017-07-06 07:09] VITALS: BP 85/49
[2017-07-06 07:33] LABS: POINT-OF-CARE METER ID UU13113831
[2017-07-06 11:07] VITALS: BP 112/56
[2017-07-06 13:03] LABS: POINT-OF-CARE METER ID UU13113831
[2017-07-06 16:20] VITALS: BP 122/59
[2017-07-06 17:31] LABS: POINT-OF-CARE METER ID UU13113831
[2017-07-06 19:14] VITALS: BP 108/55
[2017-07-06 21:29] LABS: POINT-OF-CARE METER ID UU13113831
[2017-07-06 23:05] VITALS: BP 93/54
[2017-07-07 02:55] VITALS: BP 98/54
[2017-07-07 05:35] LABS: HEMATOCRIT 33.8 % (36.0-46.0); MCH 29.4 PG (29.0-34.0); MCHC 31.1 G/DL (30.0-36.0); MCV 94.7 FL (83-99); MEAN PLAT.VOLUME 11.2 uM^3 (9.5-12.4); PLATELET COUNT 264 K/uL (156-360); RBC DIS.WIDTH-CV 13.7 % (11.8-14.6); RBC DIS.WIDTH-SD 47.8 % (39-53); RED BLOOD COUNT 3.57 M/uL (3.80-5.20)
[2017-07-07 05:42] LABS: INTER. NORMALIZED RATIO 1.5; PROTHROMBIN TIME 17.6 SEC (10.2-12.9)
[2017-07-07 05:46] LABS: PTT 57.4 SEC (25-37)
[2017-07-07 07:30] VITALS: BP 100/55
[2017-07-07 08:14] LABS: POINT-OF-CARE METER ID UU13113831
[2017-07-07] MEDS ORDERED: WARFARIN SODIUM5 MG PO (11:56)
[2017-07-07 11:57] VITALS: BP 111/63
[2017-07-07] MEDS ORDERED: ADVAIR HFA120 INHALA IH (11:57)
[2017-07-07] MEDS ORDERED: LOVENOX150 MG/1 M SC (11:59)
[2017-07-07] MEDS ORDERED: PREDNISONE10 MG PO (12:01)
[2017-07-07 12:24] LABS: POINT-OF-CARE METER ID UU13113831
== END 2017-07-07 14:43 | disposition home or self-care (01) ==
LOC: EME → EDBD 11:58 → EME 11:58 → 5WEST 15:52 → EDOF 15:52 → ENRESERV 15:55 → 5WEST 16:45 → ENRESERV 07-05 02:38 → CANRESERV 07-05 02:38 → 5WEST 07-05 17:42
PROVIDERS: Emergency Medicine; Internal Medicine; Physician Assistant; Physician Assistant Medical
DX: R07.9 Chest pain, unspecified (principal); I25.10 Atherosclerotic heart disease of native coronary artery without angina pectoris; E11.9 Type 2 diabetes mellitus without complications; E78.5 Hyperlipidemia, unspecified; E66.2 Morbid (severe) obesity with alveolar hypoventilation; Z68.45 Body mass index [BMI] 70 or greater, adult; J44.9 Chronic obstructive pulmonary disease, unspecified; Z99.81 Dependence on supplemental oxygen; F17.210 Nicotine dependence, cigarettes, uncomplicated; Z86.711 Personal history of pulmonary embolism; Z86.718 Personal history of other venous thrombosis and embolism; Z79.01 Long term (current) use of anticoagulants; J96.21 Acute and chronic respiratory failure with hypoxia; Z95.5 Presence of coronary angioplasty implant and graft; R11.0 Nausea; R61 Generalized hyperhidrosis; R06.02 Shortness of breath; E03.9 Hypothyroidism, unspecified; I10 Essential (primary) hypertension; K21.9 Gastro-esophageal reflux disease without esophagitis; F32.9 Major depressive disorder, single episode, unspecified; F41.9 Anxiety disorder, unspecified; H40.9 Unspecified glaucoma; Z82.49 Family history of ischemic heart disease and other diseases of the circulatory system; Z82.5 Family history of asthma and other chronic lower respiratory diseases; Z88.1 Allergy status to other antibiotic agents; Z79.82 Long term (current) use of aspirin; G89.29 Other chronic pain
CPT/HCPCS: 71010; 71275; 80048; 82948; 84484; 84702; 85027; 85379; 85610; 85730; 93005; 94640; 94640 76; 94799; 99202; G0378; J1650; J1815; J2270; J2920; J3010

== ENCOUNTER 2017-07-08 20:56 | Emergency (ER) | payer OTHER ==
[~2017-07-08] VITALS: Ht 149.9 cm; Wt 148.2 kg
[~2017-07-08 20:56] MED LIST changes: +ADVAIR HFA120 INHALA IH; +LOVENOX150 MG/1 M SC
[2017-07-08 23:01] LABS: EOSINOPHIL (%) 0 % (0-5); HEMATOCRIT 38.4 % (36.0-46.0); IMMATURE GRANULOCYTE (%) 0.9 % (0.0-0.7); IMMATURE GRANULOCYTE COUNT 0.1 K/uL; INSTRUMENT ABS NEUTROPHIL CT 8.5 K/uL; LYMPHOCYTE COUNT 1.4 K/uL (1.0-2.8); MCH 29.9 PG (29.0-34.0); MCHC 31.3 G/DL (30.0-36.0); MCV 95.5 FL (83-99); MEAN PLAT.VOLUME 11.3 uM^3 (9.5-12.4); MONOCYTE (%) 6.2 % (3-12); MONOCYTE COUNT 0.7 K/uL (0-0.8); NEUTROPHIL (%) 80.1 % (45-76); NEUTROPHIL COUNT 8.5 K/uL (1.8-6.4); PLATELET COUNT 267 K/uL (156-360); RBC DIS.WIDTH-CV 13.7 % (11.8-14.6); RBC DIS.WIDTH-SD 48.5 % (39-53); RED BLOOD COUNT 4.02 M/uL (3.80-5.20); WHITE BLOOD COUNT 10.6 K/uL (4.1-10.2)
[2017-07-08 23:02] LABS: CARBON DIOXIDE (BICARBONATE) 37.6 MEQ/L (20-31)
[2017-07-08 23:08] LABS: INTER. NORMALIZED RATIO 1.9; PROTHROMBIN TIME 21.1 SEC (10.2-12.9)
[2017-07-08 23:12] LABS: CHLORIDE 97 mEq/L (99-109); POTASSIUM 3.9 mEq/L (3.7-5.4); SODIUM 137 mEq/L (136-147)
[2017-07-08 23:15] LABS: GLUCOSE 316 mg/dL (70-99)
[2017-07-08 23:16] LABS: ANION GAP 8 MEQ/L (2-14)
[2017-07-08 23:17] LABS: TOTAL BILIRUBIN 0.2 mg/dL (0.0-1.0)
[2017-07-08 23:18] LABS: ALKALINE PHOSPHATASE 80 IU/L (3-129); GFR ESTIMATE (CALCULATED) 40 mL/min/
[2017-07-08 23:19] LABS: UREA NITROGEN (BUN) 20 mg/dL (9-23)
[2017-07-08 23:23] LABS: TROP-I INTERPRETATION NEGATIVE; TROPONIN-I 0.06 ng/mL (0.0-0.30)
[2017-07-08 23:55] LABS: SAMPLE HEMOLYSIS CHECK 0; SAMPLE ICTERIC CHECK 0; SAMPLE LIPEMIA CHECK 0
[2017-07-09 00:35] VITALS: BP 121/82
[2017-07-11 21:50] LABS: POINT-OF-CARE METER ID UU13113702; POINT-OF-CARE USER ID HMLKAV
== END 2017-07-09 00:36 | disposition home or self-care (01) ==
LOC: EME 20:56
PROVIDERS: Emergency Medicine
DX: E11.65 Type 2 diabetes mellitus with hyperglycemia (principal); N28.9 Disorder of kidney and ureter, unspecified; Z79.84 Long term (current) use of oral hypoglycemic drugs; J44.9 Chronic obstructive pulmonary disease, unspecified; E78.5 Hyperlipidemia, unspecified; I25.2 Old myocardial infarction; I50.9 Heart failure, unspecified; E03.9 Hypothyroidism, unspecified; F17.200 Nicotine dependence, unspecified, uncomplicated; E66.01 Morbid (severe) obesity due to excess calories; K21.9 Gastro-esophageal reflux disease without esophagitis; F41.9 Anxiety disorder, unspecified; F32.9 Major depressive disorder, single episode, unspecified; G25.81 Restless legs syndrome
CPT/HCPCS: 80053; 82010; 82803; 82948; 83880; 84484; 85025; 85610; 93005; 99281; 99285

== ENCOUNTER 2017-08-19 22:14 | Inpatient (IN) | payer OTHER ==
[~2017-08-19] VITALS: Ht 149.9 cm; Wt 192.0 kg
[2017-08-19 23:11] LABS: HEMATOCRIT 38.3 % (36.0-46.0); HEMOGLOBIN 12.1 G/DL (11.9-15.5); MCHC 31.6 G/DL (30.0-36.0); MCV 91.8 FL (83-99); NRBC (%) 0.4 /100 WBC (0-0); PLATELET COUNT 232 K/uL (156-360); RBC DIS.WIDTH-CV 14.8 % (11.8-14.6); RBC DIS.WIDTH-SD 49.6 % (39-53); RED BLOOD COUNT 4.17 M/uL (3.80-5.20); WHITE BLOOD COUNT 7.5 K/uL (4.1-10.2)
[2017-08-19 23:19] LABS: ALBUMIN 2.6 g/dL (3.2-4.8); CHLORIDE 99 mEq/L (99-109); POTASSIUM 3.6 mEq/L (3.7-5.4); PTT 40.5 SEC (25-37); SODIUM 139 mEq/L (136-147)
[2017-08-19 23:22] LABS: GLUCOSE 133 mg/dL (70-99); TOTAL PROTEIN 6.2 g/dL (6.4-8.3)
[2017-08-19 23:24] LABS: INTER. NORMALIZED RATIO 2.4; TOTAL BILIRUBIN 0.3 mg/dL (0.0-1.0)
[2017-08-19 23:25] LABS: ALKALINE PHOSPHATASE 135 IU/L (3-129); CREATININE 1.2 mg/dL (0.6-1.3); GFR ESTIMATE (CALCULATED) 52 mL/min/
[2017-08-19 23:26] LABS: UREA NITROGEN (BUN) 14 mg/dL (9-23)
[2017-08-19 23:27] LABS: AST (GOT) 35 IU/L (2-34)
[2017-08-19 23:28] LABS: ALT (GPT) 36 IU/L (3-49)
[2017-08-19 23:32] LABS: TROP-I INTERPRETATION NEGATIVE; TROPONIN-I < 0.01 ng/mL (0.0-0.30)
[2017-08-19 23:58] LABS: ABS NEUTROPHIL COUNT 3.5; ANISOCYTOSIS 1+; ATYPICAL LYMPHOCYTE 27.8 %; BAND NEUTROPHILS 2.6 % (0-8.0); BASOPHILS 1.8 %; EOSINOPHIL ABS CT 0; GIANT PLATELETS 1+; MONOCYTES 2.6 % (0-9.0); MYELOCYTES 1.7 %; PLAT.SUFFICIENCY ADEQUATE; POLYCHROMASIA 1+; SEG.NEUTROPHILS 43.5 % (46.0-76.0); TEAR DROP CELLS 1+
[2017-08-20] MEDS ORDERED: COUMADIN5 MG PO ×2 (01:43)
[2017-08-20 05:50] LABS: INTER. NORMALIZED RATIO 2.3
[2017-08-20 07:25] VITALS: BP 116/62
[2017-08-20 12:16] VITALS: BP 10/63
[2017-08-20 14:44] VITALS: BP 97/57
[2017-08-20 19:13] VITALS: BP 91/54
[2017-08-20 21:31] VITALS: BP 92/50
[2017-08-20 23:52] VITALS: BP 88/54
[2017-08-21] VITALS (7 sets, daily range): BP systolic 92–109; BP diastolic 49–59
[2017-08-21 06:25] LABS: INTER. NORMALIZED RATIO 2.2
[2017-08-21 06:33] LABS: HEMATOCRIT 31.8 % (36.0-46.0); HEMOGLOBIN 9.7 G/DL (11.9-15.5); MCH 28.1 PG (29.0-34.0); MCHC 30.5 G/DL (30.0-36.0); MCV 92.2 FL (83-99); PLATELET COUNT 243 K/uL (156-360); RBC DIS.WIDTH-CV 14.6 % (11.8-14.6); RBC DIS.WIDTH-SD 49.1 % (39-53); RED BLOOD COUNT 3.45 M/uL (3.80-5.20); WHITE BLOOD COUNT 6.8 K/uL (4.1-10.2)
[2017-08-21 06:39] LABS: CHLORIDE 104 MEQ/L (99-109); CREATININE 1.1 MG/DL (0.6-1.3); GFR ESTIMATE (CALCULATED) 57 mL/min/; GLUCOSE 135 mg/dL (70-99); POTASSIUM 4.1 MEQ/L (3.7-5.4); SODIUM 141 MEQ/L (136-147)
[2017-08-21 06:41] LABS: UREA NITROGEN (BUN) 22 mg/dL (9-23)
[2017-08-22 06:37] LABS: CHLORIDE 103 MEQ/L (99-109); CREATININE 1.2 MG/DL (0.6-1.3); GFR ESTIMATE (CALCULATED) 52 mL/min/; MAGNESIUM 2.1 mg/dl (1.3-2.7); POTASSIUM 4.7 MEQ/L (3.7-5.4); SODIUM 139 MEQ/L (136-147); UREA NITROGEN (BUN) 22 mg/dL (9-23)
[2017-08-22 06:39] LABS: GLUCOSE 250 mg/dL (70-99)
[2017-08-22 06:47] LABS: INTER. NORMALIZED RATIO 2.8
[2017-08-22 07:11] LABS: HEMOGLOBIN 10.3 G/DL (11.9-15.5); MCHC 31.2 G/DL (30.0-36.0); PLATELET COUNT 240 K/uL (156-360); RBC DIS.WIDTH-CV 14.8 % (11.8-14.6); RBC DIS.WIDTH-SD 51.1 % (39-53); RED BLOOD COUNT 3.55 M/uL (3.80-5.20); WHITE BLOOD COUNT 6.4 K/uL (4.1-10.2)
[2017-08-22 09:07] VITALS: BP 127/63
[2017-08-22 12:14] VITALS: BP 120/58
[2017-08-22 17:27] VITALS: BP 120/59
[2017-08-23 00:03] VITALS: BP 109/57
[2017-08-23 07:05] LABS: INTER. NORMALIZED RATIO 3.7
[2017-08-23 07:50] VITALS: BP 124/72
[2017-08-23] MEDS ORDERED: PREDNISONE10 MG PO ×2 (11:48)
[2017-08-23] MEDS ORDERED: SPIRIVA RESPIMAT4 GM IH (11:48)
== END 2017-08-23 14:50 | disposition home or self-care (01) | DRG 176 ==
LOC: EME → EDBD 22:14 → ENRESERV 08-20 → 4EAST 08-20 01:52 → EDOF 08-20 01:52 → ENRESERV 08-20 01:53 → 4EAST 08-20 06:56 → ENRESERV 08-20 21:17 → 5EAST 08-21 01:40 → ENPENDDIS 08-23 → EDPENDDISTM 08-23 13:45 → 5EAST 08-23 14:50
PROVIDERS: Emergency Medicine; Hospitalist; Internal Medicine
DX: I26.99 Other pulmonary embolism without acute cor pulmonale (principal); J44.1 Chronic obstructive pulmonary disease with (acute) exacerbation; E66.01 Morbid (severe) obesity due to excess calories; E11.9 Type 2 diabetes mellitus without complications; F17.210 Nicotine dependence, cigarettes, uncomplicated; G47.33 Obstructive sleep apnea (adult) (pediatric); J20.9 Acute bronchitis, unspecified; J44.0 Chronic obstructive pulmonary disease with (acute) lower respiratory infection; E03.9 Hypothyroidism, unspecified; G25.81 Restless legs syndrome; I25.10 Atherosclerotic heart disease of native coronary artery without angina pectoris; R09.02 Hypoxemia; K21.9 Gastro-esophageal reflux disease without esophagitis; I50.9 Heart failure, unspecified; I11.0 Hypertensive heart disease with heart failure; H40.9 Unspecified glaucoma; E78.5 Hyperlipidemia, unspecified; Z82.5 Family history of asthma and other chronic lower respiratory diseases; Z86.711 Personal history of pulmonary embolism; Z79.01 Long term (current) use of anticoagulants; Z95.5 Presence of coronary angioplasty implant and graft; Z82.49 Family history of ischemic heart disease and other diseases of the circulatory system; Z99.81 Dependence on supplemental oxygen; Z71.6 Tobacco abuse counseling; Z79.82 Long term (current) use of aspirin; Z68.45 Body mass index [BMI] 70 or greater, adult; Z79.84 Long term (current) use of oral hypoglycemic drugs; I25.2 Old myocardial infarction; Z91.19 Patient's noncompliance with other medical treatment and regimen; Z79.899 Other long term (current) drug therapy
CPT/HCPCS: 71045; 80048; 80053; 82948; 83605; 83735; 84484; 85025; 85027; 85610; 85730; 87040; 87070; 87205; 87502; 93005; 94640; 94640 76; 94799; 99202; 99281; 99285; J0456; J1100; J1815; J1885; J2920; J2930; J7030; J7644

== ENCOUNTER 2017-09-19 18:33 | Inpatient (IN) | payer OTHER ==
[~2017-09-19] VITALS: Ht 149.9 cm; Wt 154.9 kg
[2017-09-19 20:26] LABS: BASOPHIL (%) 0.2 % (0-1); EOSINOPHIL (%) 0 % (0-5); HEMATOCRIT 38.5 % (36.0-46.0); HEMOGLOBIN 11.3 G/DL (11.9-15.5); IMMATURE GRANULOCYTE (%) 0.6 % (0.0-0.7); LYMPHOCYTE (%) 7.2 % (15-42); LYMPHOCYTE COUNT 0.5 K/uL (1.0-2.8); MCH 27.4 PG (29.0-34.0); MCHC 29.4 G/DL (30.0-36.0); MCV 93.2 FL (83-99); MONOCYTE (%) 4.8 % (3-12); MONOCYTE COUNT 0.3 K/uL (0-0.8); NEUTROPHIL (%) 87.2 % (45-76); NEUTROPHIL COUNT 5.7 K/uL (1.8-6.4); PLATELET COUNT 244 K/uL (156-360); RBC DIS.WIDTH-CV 14.1 % (11.8-14.6); RBC DIS.WIDTH-SD 47.8 % (39-53); RED BLOOD COUNT 4.13 M/uL (3.80-5.20); WHITE BLOOD COUNT 6.5 K/uL (4.1-10.2)
[2017-09-19 20:35] LABS: CHLORIDE 103 mEq/L (99-109)
[2017-09-19 20:36] LABS: ALBUMIN 3.1 g/dL (3.2-4.8); POTASSIUM 4.8 mEq/L (3.7-5.4); SODIUM 141 mEq/L (136-147)
[2017-09-19 20:38] LABS: GLUCOSE 202 mg/dL (70-99); TOTAL PROTEIN 6.9 g/dL (6.4-8.3)
[2017-09-19 20:40] LABS: TOTAL BILIRUBIN 0.3 mg/dL (0.0-1.0)
[2017-09-19 20:42] LABS: ALKALINE PHOSPHATASE 102 IU/L (3-129); GFR ESTIMATE (CALCULATED) > 59 mL/min/
[2017-09-19 20:43] LABS: UREA NITROGEN (BUN) 13 mg/dL (9-23)
[2017-09-19 20:44] LABS: AST (GOT) 15 IU/L (2-34)
[2017-09-19 20:45] LABS: ALT (GPT) 14 IU/L (3-49); CREATINE KINASE 14 IU/L (1-294); TOTAL CK 14 IU/L (1-294)
[2017-09-19 20:48] LABS: PTT 38.5 SEC (25-37)
[2017-09-19 20:51] LABS: CK-MB 0.6 ng/mL (0.0-4.9); CKMB RELATIVE INDEX 4.3 (0.0-3.9); TROP-I INTERPRETATION NEGATIVE; TROPONIN-I 0.02 ng/mL (0.0-0.30)
[2017-09-19] MEDS ORDERED: VENTOLIN HFA18 GM IH (22:03)
[2017-09-19 22:13] LABS: THYROTROPIN (TSH) 0.12 MIU/L (0.4-5.5)
[2017-09-19] MEDS ORDERED: LASIX40 MG PO (22:17)
[2017-09-19] MEDS ORDERED: KLOR-CON M2020 MEQ PO (22:18)
[2017-09-19] MEDS ORDERED: COZAAR25 MG PO (22:18)
[2017-09-19] MEDS ORDERED: COUMADIN5 MG PO ×2 (22:18→22:19)
[2017-09-19 22:23] LABS: BASE EXCESS 8.4 mEq/L (-3 to +3); BICARBONATE 36.8 mEq/L (22-26); CARBOXY HGB 4.1 % (0-5); COMMENTS - BLOOD GASES A+C+; DEVICE NC; METHEMOGLOBIN 0.9 % (0-1.5); O2 FLOW 4 L/MIN; PCO2 73 mm Hg (35-45); PO2 53 mm Hg (80-100); SITE LR; TOTAL RESP RATE 18 resp/min; pH 7.31 (7.35-7.45)
[2017-09-20 00:22] VITALS: BP 94/55
[2017-09-20 04:06] VITALS: BP 125/59
[2017-09-20 07:03] LABS: HEMATOCRIT 33.8 % (36.0-46.0); HEMOGLOBIN 10.2 G/DL (11.9-15.5); MCH 27.8 PG (29.0-34.0); MCHC 30.2 G/DL (30.0-36.0); MCV 92.1 FL (83-99); PLATELET COUNT 225 K/uL (156-360); RBC DIS.WIDTH-CV 14.1 % (11.8-14.6); RBC DIS.WIDTH-SD 47.7 % (39-53); RED BLOOD COUNT 3.67 M/uL (3.80-5.20); WHITE BLOOD COUNT 2.7 K/uL (4.1-10.2)
[2017-09-20 07:10] VITALS: BP 112/57
[2017-09-20 07:18] LABS: INTER. NORMALIZED RATIO 3.6
[2017-09-20 07:47] LABS: CHLORIDE 101 MEQ/L (99-109); GFR ESTIMATE (CALCULATED) > 59 mL/min/; GLUCOSE 300 mg/dL (70-99); POTASSIUM 5.2 MEQ/L (3.7-5.4); SODIUM 140 MEQ/L (136-147); UREA NITROGEN (BUN) 15 mg/dL (9-23)
[2017-09-20 11:48] VITALS: BP 105/59
[2017-09-20 15:33] VITALS: BP 114/64
[2017-09-20 19:05] VITALS: BP 115/53
[2017-09-21] VITALS (7 sets, daily range): BP systolic 95–131; BP diastolic 49–73
[2017-09-21 06:50] LABS: BASOPHIL (%) 0 % (0-1); EOSINOPHIL (%) 0 % (0-5); HEMATOCRIT 33.7 % (36.0-46.0); HEMOGLOBIN 10.2 G/DL (11.9-15.5); IMMATURE GRANULOCYTE (%) 0.6 % (0.0-0.7); LYMPHOCYTE (%) 10.3 % (15-42); LYMPHOCYTE COUNT 0.5 K/uL (1.0-2.8); MCH 27.2 PG (29.0-34.0); MCHC 30.3 G/DL (30.0-36.0); MCV 89.9 FL (83-99); MONOCYTE (%) 3.2 % (3-12); MONOCYTE COUNT 0.2 K/uL (0-0.8); NEUTROPHIL (%) 85.9 % (45-76); NEUTROPHIL COUNT 4.3 K/uL (1.8-6.4); PLATELET COUNT 242 K/uL (156-360); RBC DIS.WIDTH-CV 13.8 % (11.8-14.6); RBC DIS.WIDTH-SD 45.2 % (39-53); RED BLOOD COUNT 3.75 M/uL (3.80-5.20)
[2017-09-21 07:04] LABS: INTER. NORMALIZED RATIO 4.2
[2017-09-21 07:11] LABS: ALBUMIN 2.8 G/DL (3.2-4.8); ALKALINE PHOSPHATASE 68 IU/L (3-129); ALT (GPT) 9 IU/L (3-49); AST (GOT) 7 IU/L (2-34); CHLORIDE 100 MEQ/L (99-109); GFR ESTIMATE (CALCULATED) > 59 mL/min/; GLUCOSE 217 mg/dL (70-99); POTASSIUM 4.7 MEQ/L (3.7-5.4); SODIUM 139 MEQ/L (136-147); TOTAL BILIRUBIN 0.3 MG/DL (0.0-1.0); TOTAL PROTEIN 5.6 G/DL (6.4-8.3); UREA NITROGEN (BUN) 20 mg/dL (9-23)
[2017-09-21 08:32] LABS: HEMOGLOBIN A1c (GLYCOHEMOGLOB) 6.8 % (Below 5.7)
[2017-09-22 03:54] VITALS: BP 160/65
[2017-09-22 06:32] LABS: BASOPHIL (%) 0 % (0-1); EOSINOPHIL (%) 0 % (0-5); HEMATOCRIT 34.5 % (36.0-46.0); HEMOGLOBIN 10.3 G/DL (11.9-15.5); IMMATURE GRANULOCYTE (%) 0.3 % (0.0-0.7); LYMPHOCYTE (%) 8.1 % (15-42); LYMPHOCYTE COUNT 0.5 K/uL (1.0-2.8); MCH 26.4 PG (29.0-34.0); MCHC 29.9 G/DL (30.0-36.0); MCV 88.5 FL (83-99); MONOCYTE (%) 5.9 % (3-12); MONOCYTE COUNT 0.3 K/uL (0-0.8); NEUTROPHIL (%) 85.7 % (45-76); PLATELET COUNT 253 K/uL (156-360); RBC DIS.WIDTH-CV 13.6 % (11.8-14.6); RBC DIS.WIDTH-SD 43.8 % (39-53); WHITE BLOOD COUNT 5.8 K/uL (4.1-10.2)
[2017-09-22 07:02] LABS: CHLORIDE 95 MEQ/L (99-109); CREATININE 1.1 MG/DL (0.6-1.3); GFR ESTIMATE (CALCULATED) 57 mL/min/; POTASSIUM 4.4 MEQ/L (3.7-5.4); SODIUM 138 MEQ/L (136-147); UREA NITROGEN (BUN) 27 mg/dL (9-23)
[2017-09-22 07:03] LABS: GLUCOSE 327 mg/dL (70-99)
[2017-09-22 07:14] LABS: INTER. NORMALIZED RATIO 2.8
[2017-09-22 07:15] VITALS: BP 119/79
[2017-09-22 11:41] VITALS: BP 106/57
[2017-09-22 15:40] VITALS: BP 110/72
[2017-09-22 20:16] VITALS: BP 112/59
[2017-09-22 23:07] VITALS: BP 111/63
[2017-09-23 06:03] LABS: INTER. NORMALIZED RATIO 1.9
[2017-09-23 07:11] LABS: CHLORIDE 98 MEQ/L (99-109); POTASSIUM 4.5 MEQ/L (3.7-5.4); SODIUM 139 MEQ/L (136-147)
[2017-09-23 07:15] LABS: HEMATOCRIT 35.9 % (36.0-46.0); MCH 27.1 PG (29.0-34.0); MCHC 30.6 G/DL (30.0-36.0); MCV 88.4 FL (83-99); PLATELET COUNT 263 K/uL (156-360); RBC DIS.WIDTH-CV 13.5 % (11.8-14.6); RED BLOOD COUNT 4.06 M/uL (3.80-5.20); WHITE BLOOD COUNT 6.2 K/uL (4.1-10.2)
[2017-09-23 07:17] LABS: CREATININE 1.1 MG/DL (0.6-1.3); GFR ESTIMATE (CALCULATED) 57 mL/min/; GLUCOSE 271 mg/dL (70-99); UREA NITROGEN (BUN) 27 mg/dL (9-23)
[2017-09-23 08:51] VITALS: BP 112/58
[2017-09-23] MEDS ORDERED: GABAPENTIN100 MG PO (09:00)
[2017-09-23] MEDS ORDERED: ROPINIROLE HCL0.5 MG PO (09:00)
[2017-09-23] MEDS ORDERED: FUROSEMIDE40 MG PO (09:01)
[2017-09-23] MEDS ORDERED: K-DUR20 MEQ PO (09:01)
[2017-09-23] MEDS ORDERED: ADVAIR HFA120 INHALA IH (09:02)
== END 2017-09-23 13:48 | disposition home or self-care (01) | DRG 190 ==
LOC: EME 18:33 → EDOF 22:54 → 2EAST 22:54 → ENRESERV 22:57 → 2EAST 23:57 → ENPENDDIS 09-23 → 2EAST 09-23 13:48
PROVIDERS: Emergency Medicine; Hospitalist; Internal Medicine; Student in an Organized Health Care Education/Training Program
DX: J44.1 Chronic obstructive pulmonary disease with (acute) exacerbation (principal); J96.21 Acute and chronic respiratory failure with hypoxia; J96.22 Acute and chronic respiratory failure with hypercapnia; E87.2 Acidosis; E03.9 Hypothyroidism, unspecified; E11.40 Type 2 diabetes mellitus with diabetic neuropathy, unspecified; E66.2 Morbid (severe) obesity with alveolar hypoventilation; E78.5 Hyperlipidemia, unspecified; F17.200 Nicotine dependence, unspecified, uncomplicated; F32.9 Major depressive disorder, single episode, unspecified; F41.1 Generalized anxiety disorder; G25.81 Restless legs syndrome; G89.29 Other chronic pain; I11.0 Hypertensive heart disease with heart failure; I50.9 Heart failure, unspecified; K21.9 Gastro-esophageal reflux disease without esophagitis; G43.909 Migraine, unspecified, not intractable, without status migrainosus; I25.10 Atherosclerotic heart disease of native coronary artery without angina pectoris; I27.20 Pulmonary hypertension, unspecified; D64.9 Anemia, unspecified; I25.2 Old myocardial infarction; Z86.711 Personal history of pulmonary embolism; Z86.718 Personal history of other venous thrombosis and embolism; Z91.19 Patient's noncompliance with other medical treatment and regimen; Z95.5 Presence of coronary angioplasty implant and graft; Z99.81 Dependence on supplemental oxygen; Z79.82 Long term (current) use of aspirin; Z88.1 Allergy status to other antibiotic agents; Z68.44 Body mass index [BMI] 60.0-69.9, adult
CPT/HCPCS: 36600; 71045; 71046; 80048; 80053; 82550; 82553; 82803; 82948; 83036; 83735; 83880; 84439; 84443; 84484; 85025; 85027; 85610; 85730; 87502; 93005; 94640; 94640 76; 94760; 94799; 99202; 99281; 99285; J1100; J1815; J2930; J7512; J7644

== ENCOUNTER 2017-10-02 02:14 | Observation (INO) | payer OTHER ==
[~2017-10-02] VITALS: Ht 149.9 cm; Wt 150.8 kg
[~2017-10-02 02:14] MED LIST changes: +GABAPENTIN100 MG PO; +ROPINIROLE HCL0.5 MG PO
[2017-10-02 03:22] LABS: HEMATOCRIT 39.9 % (36.0-46.0); HEMOGLOBIN 12.6 G/DL (11.9-15.5); MCH 27.7 PG (29.0-34.0); MCHC 31.6 G/DL (30.0-36.0); MCV 87.7 FL (83-99); PLATELET COUNT 234 K/uL (156-360); RBC DIS.WIDTH-CV 14.8 % (11.8-14.6); RBC DIS.WIDTH-SD 47.4 % (39-53); RED BLOOD COUNT 4.55 M/uL (3.80-5.20); WHITE BLOOD COUNT 9.9 K/uL (4.1-10.2)
[2017-10-02 03:34] LABS: ALBUMIN 3.3 g/dL (3.2-4.8); CHLORIDE 103 mEq/L (99-109); POTASSIUM 3.7 mEq/L (3.7-5.4); SODIUM 138 mEq/L (136-147)
[2017-10-02 03:37] LABS: GLUCOSE 244 mg/dL (70-99); TOTAL PROTEIN 6.3 g/dL (6.4-8.3)
[2017-10-02 03:39] LABS: TOTAL BILIRUBIN 0.4 mg/dL (0.0-1.0)
[2017-10-02 03:40] LABS: ALKALINE PHOSPHATASE 89 IU/L (3-129); CREATININE 1.2 mg/dL (0.6-1.3); GFR ESTIMATE (CALCULATED) 52 mL/min/
[2017-10-02 03:41] LABS: UREA NITROGEN (BUN) 14 mg/dL (9-23)
[2017-10-02 03:42] LABS: AST (GOT) 14 IU/L (2-34)
[2017-10-02 03:43] LABS: ALT (GPT) 19 IU/L (3-49)
[2017-10-02 03:44] LABS: LIPASE 19 U/L (1.0-51.0); TROP-I INTERPRETATION NEGATIVE; TROPONIN-I < 0.01 ng/mL (0.0-0.30)
[2017-10-02 06:19] LABS: INTER. NORMALIZED RATIO 1.2
[2017-10-02 08:57] LABS: D-DIMER ELISA < 150.00 ng/mLDDU (<230)
[2017-10-02] MEDS ORDERED: ZANTAC300 MG PO (09:03)
[2017-10-02] MEDS ORDERED: BRILINTA60 MG PO (09:06)
[2017-10-02 09:10] LABS: TROP-I INTERPRETATION NEGATIVE; TROPONIN-I < 0.01 ng/mL (0.0-0.30)
[2017-10-02] MEDS ORDERED: SYMBICORT60 INHALA1 IH (09:18)
[2017-10-02 13:18] VITALS: BP 104/59
[2017-10-02 13:22] LABS: TROP-I INTERPRETATION NEGATIVE; TROPONIN-I < 0.01 ng/mL (0.0-0.30)
[2017-10-02 17:24] VITALS: BP 97/53
[2017-10-02 20:24] VITALS: BP 105/57
[2017-10-02 23:40] VITALS: BP 91/54
[2017-10-03 03:15] VITALS: BP 115/57
[2017-10-03 06:39] LABS: INTER. NORMALIZED RATIO 1.3
[2017-10-03 07:13] LABS: ALBUMIN 2.7 G/DL (3.2-4.8); CHLORIDE 107 MEQ/L (99-109); POTASSIUM 3.9 MEQ/L (3.7-5.4); SODIUM 139 MEQ/L (136-147); TOTAL BILIRUBIN 0.2 MG/DL (0.0-1.0)
[2017-10-03 07:19] LABS: ALKALINE PHOSPHATASE 69 IU/L (3-129); ALT (GPT) 14 IU/L (3-49); AST (GOT) 15 IU/L (2-34); CREATININE 1.1 MG/DL (0.6-1.3); GFR ESTIMATE (CALCULATED) 57 mL/min/; GLUCOSE 179 mg/dL (70-99); UREA NITROGEN (BUN) 14 mg/dL (9-23)
[2017-10-03 07:40] VITALS: BP 107/55
[2017-10-03 12:55] VITALS: BP 80/50
[2017-10-03] MEDS ORDERED: LOPRESSOR25 MG PO (13:09)
[2017-10-03] MEDS ORDERED: LOVENOX150 MG/1 M SC (13:17)
[2017-10-03 13:20] VITALS: BP 100/52
[2017-10-03 16:14] VITALS: BP 1113/59; BP 113/59
== END 2017-10-03 18:11 | disposition home or self-care (01) ==
LOC: EME → EDBD 02:14 → EDOF 07:57 → ENRESERV 08:04 → EDOF 08:09 → ENRESERV 12:25 → 5WEST 13:00 → ENPENDDIS 10-03 → 5WEST 10-03 18:11
PROVIDERS: Emergency Medicine; Internal Medicine; Physician Assistant
DX: R07.9 Chest pain, unspecified (principal); Z86.711 Personal history of pulmonary embolism; J96.11 Chronic respiratory failure with hypoxia; E11.9 Type 2 diabetes mellitus without complications; E66.01 Morbid (severe) obesity due to excess calories; Z68.45 Body mass index [BMI] 70 or greater, adult; G47.33 Obstructive sleep apnea (adult) (pediatric); I10 Essential (primary) hypertension; J44.9 Chronic obstructive pulmonary disease, unspecified; E03.9 Hypothyroidism, unspecified; F32.9 Major depressive disorder, single episode, unspecified; K21.9 Gastro-esophageal reflux disease without esophagitis; F43.20 Adjustment disorder, unspecified; I25.10 Atherosclerotic heart disease of native coronary artery without angina pectoris; F41.1 Generalized anxiety disorder; I27.20 Pulmonary hypertension, unspecified; Z99.81 Dependence on supplemental oxygen; I25.2 Old myocardial infarction; Z95.5 Presence of coronary angioplasty implant and graft; Z90.49 Acquired absence of other specified parts of digestive tract; F17.200 Nicotine dependence, unspecified, uncomplicated; Z82.49 Family history of ischemic heart disease and other diseases of the circulatory system; Z83.3 Family history of diabetes mellitus; Z80.9 Family history of malignant neoplasm, unspecified; Z79.01 Long term (current) use of anticoagulants; Z79.84 Long term (current) use of oral hypoglycemic drugs; Z88.1 Allergy status to other antibiotic agents
CPT/HCPCS: 71045; 80053; 82948; 83690; 83880; 84484; 85027; 85379; 85610; 85730; 93005; 94640; 94640 76; 94799; 99202; 99281; 99285; G0378; J1650; J1815

== ENCOUNTER 2017-11-29 19:09 | Inpatient (IN) | payer OTHER ==
[~2017-11-29] VITALS: Ht 152.4 cm; Wt 130.0 kg
[~2017-11-29 19:09] MED LIST changes: +BRILINTA60 MG PO; -MULTI-VITAMIN1 EAC4 PO; +SYMBICORT60 INHALA1 IH; +ZANTAC300 MG PO
[2017-11-29 19:42] LABS: HEMATOCRIT 44.4 % (36.0-46.0); HEMOGLOBIN 13.9 G/DL (11.9-15.5); MCH 27.9 PG (29.0-34.0); MCHC 31.3 G/DL (30.0-36.0); PLATELET COUNT 264 K/uL (156-360); RBC DIS.WIDTH-CV 15.6 % (11.8-14.6); RBC DIS.WIDTH-SD 50.1 % (39-53); RED BLOOD COUNT 4.99 M/uL (3.80-5.20); WHITE BLOOD COUNT 10.9 K/uL (4.1-10.2)
[2017-11-29 19:45] LABS: VENOUS PCO2 93 mm Hg (41-51)
[2017-11-29 19:47] LABS: CARBON DIOXIDE (BICARBONATE) > 40.0 MEQ/L (20-31)
[2017-11-29 19:57] LABS: CHLORIDE 94 mEq/L (99-109); POTASSIUM 4.9 mEq/L (3.7-5.4); SODIUM 140 mEq/L (136-147)
[2017-11-29 19:58] LABS: GLUCOSE 225 mg/dL (70-99)
[2017-11-29 20:02] LABS: CREATININE 1.2 mg/dL (0.6-1.3); GFR ESTIMATE (CALCULATED) 52 mL/min/
[2017-11-29 20:03] LABS: UREA NITROGEN (BUN) 11 mg/dL (9-23)
[2017-11-29 20:06] LABS: TROP-I INTERPRETATION NEGATIVE; TROPONIN-I 0.02 ng/mL (0.0-0.30)
[2017-11-29 21:58] LABS: PTT 56.1 SEC (25-37)
[2017-11-29 22:05] LABS: INTER. NORMALIZED RATIO 5.3
[2017-11-29 22:20] LABS: BASE EXCESS 9.8 mEq/L (-3 to +3); BICARBONATE 40.8 mEq/L (22-26); CARBOXY HGB 4.3 % (0-5); METHEMOGLOBIN 0.8 % (0-1.5); PO2 59 mm Hg (80-100)
[2017-11-29 22:21] LABS: COMMENTS - BLOOD GASES A+C+; DEVICE NCHH; FI02 60 %; O2 FLOW 40 L/MIN; PCO2 93 mm Hg (35-45); SITE RR
[2017-11-29 22:22] LABS: pH 7.25 (7.35-7.45)
[2017-11-29 23:38] VITALS: BP 88/72
[2017-11-30] VITALS (26 sets, daily range): BP systolic 72–144; BP diastolic 42–91
[2017-11-30 00:52] LABS: TRIGLYCERIDES 129 MG/DL (Normal: <150)
[2017-11-30 01:04] LABS: BASE EXCESS 6.8 mEq/L (-3 to +3); BICARBONATE 35.9 mEq/L (22-26); CARBOXY HGB 3.2 % (0-5); COMMENTS - BLOOD GASES C+A+; DEVICE VENT; FI02 50 %; METHEMOGLOBIN 1.4 % (0-1.5); MODE AC; PCO2 73 mm Hg (35-45); PEEP 8 CM/H20; PO2 87 mm Hg (80-100); SITE LR; TIDAL VOLUME 500 ML; TOTAL RESP RATE 18 resp/min
[2017-11-30 05:58] LABS: HEMATOCRIT 37.5 % (36.0-46.0); MCH 26.7 PG (29.0-34.0); MCHC 30.1 G/DL (30.0-36.0); MCV 88.7 FL (83-99); PLATELET COUNT 242 K/uL (156-360); RBC DIS.WIDTH-CV 15.3 % (11.8-14.6); RBC DIS.WIDTH-SD 48.9 % (39-53); RED BLOOD COUNT 4.23 M/uL (3.80-5.20); WHITE BLOOD COUNT 9.1 K/uL (4.1-10.2)
[2017-11-30 06:02] LABS: INTER. NORMALIZED RATIO 5.6
[2017-11-30 06:04] LABS: PTT 47.5 SEC (25-37)
[2017-11-30 06:08] LABS: HEMOGLOBIN 11.3 G/DL (11.9-15.5)
[2017-11-30 06:19] LABS: ALBUMIN 2.7 G/DL (3.2-4.8); ALKALINE PHOSPHATASE 68 IU/L (3-129); ALT (GPT) 8 IU/L (3-49); AST (GOT) 8 IU/L (2-34); CHLORIDE 95 MEQ/L (99-109); CREATININE 1.2 MG/DL (0.6-1.3); GFR ESTIMATE (CALCULATED) 52 mL/min/; GLUCOSE 399 mg/dL (70-99); POTASSIUM 4.6 MEQ/L (3.7-5.4); SODIUM 137 MEQ/L (136-147); TOTAL BILIRUBIN 0.3 MG/DL (0.0-1.0); TOTAL PROTEIN 5.4 G/DL (6.4-8.3); UREA NITROGEN (BUN) 14 mg/dL (9-23)
[2017-11-30 11:19] LABS: HEMOGLOBIN A1c (GLYCOHEMOGLOB) 8.3 % (Below 5.7)
[2017-11-30] MEDS ORDERED: ASCORBIC ACID250 MG PO (16:05)
[2017-11-30] MEDS ORDERED: LASIX40 MG PO (16:08)
[2017-11-30 16:26] LABS: INTER. NORMALIZED RATIO 1.3
[2017-11-30] MEDS ORDERED: LOSARTAN POTASS25 MG PO (16:52)
[2017-11-30] MEDS ORDERED: ROPINIROLE HCL1 MG PO (16:54)
[2017-11-30] MEDS ORDERED: GABAPENTIN400 MG PO (16:58)
[2017-11-30] MEDS ORDERED: MULTI-VITAMIN1 EAC4 PO (16:59)
[2017-11-30 18:47] LABS: PTT 20.3 SEC (25-37)
[2017-12-01] VITALS (23 sets, daily range): BP systolic 109–175; BP diastolic 68–109
[2017-12-01 05:12] LABS: BASOPHIL (%) 0.1 % (0-1); EOSINOPHIL (%) 0 % (0-5); HEMATOCRIT 35.2 % (36.0-46.0); IMMATURE GRANULOCYTE (%) 0.8 % (0.0-0.7); LYMPHOCYTE (%) 4.7 % (15-42); LYMPHOCYTE COUNT 0.5 K/uL (1.0-2.8); MCH 27.1 PG (29.0-34.0); MCHC 31.3 G/DL (30.0-36.0); MCV 86.7 FL (83-99); MONOCYTE (%) 3.1 % (3-12); MONOCYTE COUNT 0.4 K/uL (0-0.8); NEUTROPHIL (%) 91.3 % (45-76); NEUTROPHIL COUNT 10.5 K/uL (1.8-6.4); PLATELET COUNT 264 K/uL (156-360); RBC DIS.WIDTH-CV 15.4 % (11.8-14.6); RED BLOOD COUNT 4.06 M/uL (3.80-5.20); WHITE BLOOD COUNT 11.5 K/uL (4.1-10.2)
[2017-12-01 05:32] LABS: SODIUM 140 mEq/L (136-147)
[2017-12-01 05:33] LABS: MAGNESIUM 1.6 mg/dL (1.3-2.7)
[2017-12-01 05:35] LABS: CHLORIDE 98 mEq/L (99-109); POTASSIUM 5.4 mEq/L (3.7-5.4)
[2017-12-01 05:40] LABS: PHOSPHORUS 2.5 mg/dL (2.5-4.9)
[2017-12-01 05:45] LABS: GLUCOSE 300 mg/dL (70-99)
[2017-12-01 05:51] LABS: CREATININE 1.2 MG/DL (0.6-1.3); GFR ESTIMATE (CALCULATED) 52 mL/min/; UREA NITROGEN (BUN) 16 mg/dL (9-23)
[2017-12-01 17:25] LABS: INTER. NORMALIZED RATIO 1.1
[2017-12-01 17:28] LABS: PTT 31.8 SEC (25-37)
[2017-12-02] VITALS (24 sets, daily range): BP systolic 105–151; BP diastolic 57–93
[2017-12-02 05:52] LABS: BASOPHIL (%) 0 % (0-1); EOSINOPHIL (%) 0 % (0-5); HEMATOCRIT 33.4 % (36.0-46.0); HEMOGLOBIN 9.9 G/DL (11.9-15.5); IMMATURE GRANULOCYTE (%) 1.2 % (0.0-0.7); LYMPHOCYTE (%) 6.3 % (15-42); LYMPHOCYTE COUNT 0.6 K/uL (1.0-2.8); MCH 26.1 PG (29.0-34.0); MCHC 29.6 G/DL (30.0-36.0); MCV 88.1 FL (83-99); MONOCYTE COUNT 0.5 K/uL (0-0.8); NEUTROPHIL (%) 87.5 % (45-76); NEUTROPHIL COUNT 8.7 K/uL (1.8-6.4); PLATELET COUNT 269 K/uL (156-360); RBC DIS.WIDTH-CV 15.6 % (11.8-14.6); RBC DIS.WIDTH-SD 50.1 % (39-53); RED BLOOD COUNT 3.79 M/uL (3.80-5.20)
[2017-12-02 06:21] LABS: INTER. NORMALIZED RATIO 1.2
[2017-12-02 07:51] LABS: ALBUMIN 2.5 G/DL (3.2-4.8); ALKALINE PHOSPHATASE 56 IU/L (3-129); ALT (GPT) 7 IU/L (3-49); AST (GOT) 10 IU/L (2-34); CHLORIDE 107 MEQ/L (99-109); CREATININE 1.1 MG/DL (0.6-1.3); GFR ESTIMATE (CALCULATED) 57 mL/min/; GLUCOSE 299 mg/dL (70-99); MAGNESIUM 2.4 mg/dl (1.3-2.7); PHOSPHORUS 2.9 mg/dL (2.5-4.9); POTASSIUM 4.9 MEQ/L (3.7-5.4); SODIUM 140 MEQ/L (136-147); TOTAL BILIRUBIN 0.4 MG/DL (0.0-1.0); UREA NITROGEN (BUN) 17 mg/dL (9-23)
[2017-12-02 10:27] LABS: PTT 192.2 SEC (25-37)
[2017-12-02 10:53] LABS: BASE EXCESS 3.4 mEq/L (-3 to +3); BICARBONATE 29.8 mEq/L (22-26); CARBOXY HGB 1.4 % (0-5); METHEMOGLOBIN 1.4 % (0-1.5); pH 7.35 (7.35-7.45)
[2017-12-02 10:54] LABS: PCO2 54 mm Hg (35-45); PO2 63 mm Hg (80-100); SITE LR
[2017-12-02 10:55] LABS: COMMENTS - BLOOD GASES A+C+; DEVICE VENT; FI02 30 %; MECHANICAL RATE 16 resp/min; MODE AC/VC; PEEP 5 CM/H20; TIDAL VOLUME 500 ML; TOTAL RESP RATE 18 resp/min
[2017-12-03] VITALS (26 sets, daily range): BP systolic 92–151; BP diastolic 49–98
[2017-12-03 06:02] LABS: BASOPHIL (%) 0.1 % (0-1); EOSINOPHIL (%) 0 % (0-5); HEMATOCRIT 31.2 % (36.0-46.0); HEMOGLOBIN 9.5 G/DL (11.9-15.5); IMMATURE GRANULOCYTE (%) 1.8 % (0.0-0.7); LYMPHOCYTE (%) 7.4 % (15-42); LYMPHOCYTE COUNT 0.7 K/uL (1.0-2.8); MCH 27.1 PG (29.0-34.0); MCHC 30.4 G/DL (30.0-36.0); MCV 88.9 FL (83-99); MONOCYTE COUNT 0.4 K/uL (0-0.8); NEUTROPHIL (%) 85.7 % (45-76); NEUTROPHIL COUNT 7.5 K/uL (1.8-6.4); PLATELET COUNT 243 K/uL (156-360); RBC DIS.WIDTH-CV 15.7 % (11.8-14.6); RED BLOOD COUNT 3.51 M/uL (3.80-5.20); WHITE BLOOD COUNT 8.8 K/uL (4.1-10.2)
[2017-12-03 06:11] LABS: INTER. NORMALIZED RATIO 1.3
[2017-12-03 06:29] LABS: PTT 148.9 SEC (25-37)
[2017-12-03 07:46] LABS: CHLORIDE 106 MEQ/L (99-109); CREATININE 1.1 MG/DL (0.6-1.3); GFR ESTIMATE (CALCULATED) 57 mL/min/; GLUCOSE 275 mg/dL (70-99); MAGNESIUM 2.1 mg/dl (1.3-2.7); PHOSPHORUS 3.6 mg/dL (2.5-4.9); POTASSIUM 4.7 MEQ/L (3.7-5.4); SODIUM 139 MEQ/L (136-147); TRIGLYCERIDES 173 MG/DL (Normal: <150); UREA NITROGEN (BUN) 17 mg/dL (9-23)
[2017-12-04] VITALS (9 sets, daily range): BP systolic 94–129; BP diastolic 44–66
[2017-12-04 07:37] LABS: PTT 56.7 SEC (25-37)
[2017-12-04 12:11] LABS: INTER. NORMALIZED RATIO 1.2
[2017-12-05 03:35] VITALS: BP 134/64
[2017-12-05 06:26] LABS: BASOPHIL (%) 0.2 % (0-1); EOSINOPHIL (%) 0 % (0-5); HEMATOCRIT 30.2 % (36.0-46.0); HEMOGLOBIN 9.1 G/DL (11.9-15.5); IMMATURE GRANULOCYTE (%) 4.1 % (0.0-0.7); LYMPHOCYTE (%) 10.8 % (15-42); LYMPHOCYTE COUNT 0.7 K/uL (1.0-2.8); MCH 26.4 PG (29.0-34.0); MCHC 30.1 G/DL (30.0-36.0); MCV 87.5 FL (83-99); MONOCYTE (%) 5.4 % (3-12); MONOCYTE COUNT 0.3 K/uL (0-0.8); NEUTROPHIL (%) 79.5 % (45-76); PLATELET COUNT 226 K/uL (156-360); RBC DIS.WIDTH-CV 15.8 % (11.8-14.6); RBC DIS.WIDTH-SD 49.5 % (39-53); RED BLOOD COUNT 3.45 M/uL (3.80-5.20); WHITE BLOOD COUNT 6.3 K/uL (4.1-10.2)
[2017-12-05 06:45] LABS: INTER. NORMALIZED RATIO 1.2
[2017-12-05 06:48] LABS: PTT 56.4 SEC (25-37)
[2017-12-05 06:50] LABS: CHLORIDE 107 MEQ/L (99-109); GFR ESTIMATE (CALCULATED) > 59 mL/min/; GLUCOSE 186 mg/dL (70-99); POTASSIUM 4.5 MEQ/L (3.7-5.4); SODIUM 141 MEQ/L (136-147); UREA NITROGEN (BUN) 17 mg/dL (9-23)
[2017-12-05 08:12] VITALS: BP 139/65
[2017-12-05] MEDS ORDERED: CEPHALEXIN500 MG PO (11:42)
[2017-12-05] MEDS ORDERED: PREDNISONE10 MG PO (11:45)
[2017-12-05] MEDS ORDERED: LOVENOX100 MG/1 M SC (11:46)
== END 2017-12-05 15:54 | disposition home or self-care (01) | DRG 208 ==
LOC: EME → EDBD 19:09 → EME 19:09 → 4WEST 21:16 → EDOF 21:16 → ENRESERV 21:18 → 4WEST 23:42 → CANRESERV 12-04 11:23 → ENRESERV 12-04 11:23 → 4WEST 12-04 11:24 → CANRESERV 12-04 14:25 → ENRESERV 12-04 14:25 → 3EAST 12-04 16:11
PROVIDERS: Emergency Medicine; Internal Medicine; Internal Medicine Critical Care Medicine; Specialist; Surgery
PROC: 5A1945Z Respiratory Ventilation, 24-96 Consecutive Hours (ICD-10-PCS; principal; 2017-11-29)
PROC: 0BH17EZ Insertion of Endotracheal Airway into Trachea, Via Natural or Artificial Opening (ICD-10-PCS; 2017-11-29)
DX: J96.21 Acute and chronic respiratory failure with hypoxia (principal); J13 Pneumonia due to Streptococcus pneumoniae; J44.0 Chronic obstructive pulmonary disease with (acute) lower respiratory infection; J44.1 Chronic obstructive pulmonary disease with (acute) exacerbation; Z68.45 Body mass index [BMI] 70 or greater, adult; N17.9 Acute kidney failure, unspecified; J96.22 Acute and chronic respiratory failure with hypercapnia; E66.01 Morbid (severe) obesity due to excess calories; I50.9 Heart failure, unspecified; I27.20 Pulmonary hypertension, unspecified; E03.9 Hypothyroidism, unspecified; E11.9 Type 2 diabetes mellitus without complications; E78.5 Hyperlipidemia, unspecified; F17.210 Nicotine dependence, cigarettes, uncomplicated; G47.33 Obstructive sleep apnea (adult) (pediatric); R79.1 Abnormal coagulation profile; T45.515A Adverse effect of anticoagulants, initial encounter; I11.0 Hypertensive heart disease with heart failure; Z86.711 Personal history of pulmonary embolism; Z79.01 Long term (current) use of anticoagulants; Z86.718 Personal history of other venous thrombosis and embolism; Z79.51 Long term (current) use of inhaled steroids; Z79.82 Long term (current) use of aspirin; Z99.81 Dependence on supplemental oxygen; Z83.3 Family history of diabetes mellitus; Z82.49 Family history of ischemic heart disease and other diseases of the circulatory system; Z80.9 Family history of malignant neoplasm, unspecified
CPT/HCPCS: 36600; 71045; 73090; 76882; 80048; 80053; 80202; 82803; 82948; 83036; 83605; 83735; 83880; 84100; 84478; 84484; 85025; 85027; 85610; 85730; 86850; 86900; 86901; 87040; 87070; 87077; 87181; 87205; 87641; 93005; 94002; 94003; 94640; 94640 76; 94760; 94799; 99202; 99281; 99285; C1751; C9113; J0295; J0456; J1100; J1650; J1815; J2060; J2543; J2704; J2920; J2930; J3010; J3370; J3430; J3475; J7030; J7050; J7120; J7512; J7644

== ENCOUNTER 2018-01-28 21:15 | Inpatient (IN) | payer OTHER ==
[~2018-01-28] VITALS: Ht 149.9 cm; Wt 160.9 kg
[~2018-01-28 21:15] MED LIST changes: +ASCORBIC ACID250 MG PO; +CEPHALEXIN500 MG PO; +COUMADIN10 MG PO; +GABAPENTIN400 MG PO; +MULTI-VITAMIN1 EAC4 PO; +ROPINIROLE HCL1 MG PO
[2018-01-28 22:13] LABS: BASOPHIL (%) 0.2 % (0-1); EOSINOPHIL (%) 0.3 % (0-5); HEMATOCRIT 39.8 % (36.0-46.0); HEMOGLOBIN 12.4 G/DL (11.9-15.5); IMMATURE GRANULOCYTE (%) 0.5 % (0.0-0.7); LYMPHOCYTE (%) 9.8 % (15-42); MCH 28.5 PG (29.0-34.0); MCHC 31.2 G/DL (30.0-36.0); MCV 91.5 FL (83-99); MONOCYTE (%) 7.4 % (3-12); MONOCYTE COUNT 0.8 K/uL (0-0.8); NEUTROPHIL (%) 81.8 % (45-76); NEUTROPHIL COUNT 8.6 K/uL (1.8-6.4); PLATELET COUNT 244 K/uL (156-360); RBC DIS.WIDTH-CV 14.8 % (11.8-14.6); RBC DIS.WIDTH-SD 50.3 % (39-53); RED BLOOD COUNT 4.35 M/uL (3.80-5.20); WHITE BLOOD COUNT 10.5 K/uL (4.1-10.2)
[2018-01-28 22:24] LABS: ALBUMIN 3.3 g/dL (3.2-4.8)
[2018-01-28 22:25] LABS: CHLORIDE 93 mEq/L (99-109); POTASSIUM 3.7 mEq/L (3.7-5.4); SODIUM 142 mEq/L (136-147)
[2018-01-28 22:27] LABS: GLUCOSE 189 mg/dL (70-99); TOTAL PROTEIN 6.4 g/dL (6.4-8.3)
[2018-01-28 22:29] LABS: TOTAL BILIRUBIN 0.3 mg/dL (0.0-1.0)
[2018-01-28 22:30] LABS: ALKALINE PHOSPHATASE 88 IU/L (3-129)
[2018-01-28 22:31] LABS: CREATININE 1.2 mg/dL (0.6-1.3); GFR ESTIMATE (CALCULATED) 52 mL/min/
[2018-01-28 22:33] LABS: AST (GOT) 9 IU/L (2-34); TROP-I INTERPRETATION NEGATIVE; TROPONIN-I < 0.01 ng/mL (0.0-0.30); UREA NITROGEN (BUN) 12 mg/dL (9-23)
[2018-01-28 22:34] LABS: ALT (GPT) 10 IU/L (3-49)
[2018-01-29 00:04] LABS: PCO2 76 mm Hg (35-45); PO2 56 mm Hg (80-100); pH 7.32 (7.35-7.45)
[2018-01-29 00:05] LABS: BASE EXCESS 10.4 mEq/L (-3 to +3); BICARBONATE 39.2 mEq/L (22-26); O2 SATURATION (CALCULATED) 93.3 % (95-99)
[2018-01-29 02:43] LABS: INTER. NORMALIZED RATIO 4.2
[2018-01-29 03:10] VITALS: BP 115/65
[2018-01-29 05:54] LABS: BASOPHIL (%) 0.1 % (0-1); EOSINOPHIL (%) 0 % (0-5); HEMATOCRIT 36.3 % (36.0-46.0); HEMOGLOBIN 11.1 G/DL (11.9-15.5); IMMATURE GRANULOCYTE (%) 0.6 % (0.0-0.7); LYMPHOCYTE (%) 3.7 % (15-42); LYMPHOCYTE COUNT 0.4 K/uL (1.0-2.8); MCH 27.8 PG (29.0-34.0); MCHC 30.6 G/DL (30.0-36.0); MONOCYTE (%) 1.1 % (3-12); MONOCYTE COUNT 0.1 K/uL (0-0.8); NEUTROPHIL (%) 94.5 % (45-76); NEUTROPHIL COUNT 10.1 K/uL (1.8-6.4); PLATELET COUNT 227 K/uL (156-360); RBC DIS.WIDTH-CV 14.9 % (11.8-14.6); RBC DIS.WIDTH-SD 49.7 % (39-53); RED BLOOD COUNT 3.99 M/uL (3.80-5.20); WHITE BLOOD COUNT 10.7 K/uL (4.1-10.2)
[2018-01-29 06:19] LABS: CHLORIDE 98 MEQ/L (99-109); CREATININE 0.9 MG/DL (0.6-1.3); GFR ESTIMATE (CALCULATED) > 59 mL/min/; POTASSIUM 4.4 MEQ/L (3.7-5.4); SODIUM 140 MEQ/L (136-147); UREA NITROGEN (BUN) 14 mg/dL (9-23)
[2018-01-29 06:23] LABS: GLUCOSE 296 mg/dL (70-99)
[2018-01-29 07:25] VITALS: BP 111/71
[2018-01-29 11:41] VITALS: BP 116/71
[2018-01-29] MEDS ORDERED: DELTASONE20 M1 PO (14:00)
[2018-01-29 15:47] VITALS: BP 129/54
[2018-01-29 19:45] VITALS: BP 117/63
[2018-01-29 22:17] LABS: INTER. NORMALIZED RATIO 5.6
[2018-01-30 00:30] VITALS: BP 116/62
[2018-01-30 05:25] VITALS: BP 114/56
[2018-01-30 07:15] VITALS: BP 122/53
[2018-01-30 09:33] LABS: INTER. NORMALIZED RATIO 5.9
[2018-01-30 11:30] VITALS: BP 108/58
[2018-01-30 20:00] VITALS: BP 99/54
[2018-01-30 23:30] VITALS: BP 100/57
[2018-01-31 04:18] VITALS: BP 109/56
[2018-01-31 05:44] LABS: HEMATOCRIT 32.3 % (36.0-46.0); MCH 28.1 PG (29.0-34.0); MCV 90.7 FL (83-99); PLATELET COUNT 242 K/uL (156-360); RBC DIS.WIDTH-CV 14.9 % (11.8-14.6); RBC DIS.WIDTH-SD 49.9 % (39-53); RED BLOOD COUNT 3.56 M/uL (3.80-5.20); WHITE BLOOD COUNT 6.9 K/uL (4.1-10.2)
[2018-01-31 06:05] LABS: CHLORIDE 102 MEQ/L (99-109); GFR ESTIMATE (CALCULATED) > 59 mL/min/; GLUCOSE 302 mg/dL (70-99); INTER. NORMALIZED RATIO 5.8; POTASSIUM 3.8 MEQ/L (3.7-5.4); SODIUM 140 MEQ/L (136-147); UREA NITROGEN (BUN) 17 mg/dL (9-23)
[2018-01-31 06:58] VITALS: BP 135/59
[2018-01-31 11:55] VITALS: BP 143/74
[2018-01-31 15:15] VITALS: BP 122/60
[2018-01-31 19:21] VITALS: BP 122/58
[2018-01-31 23:20] VITALS: BP 111/55
[2018-02-01 04:10] VITALS: BP 97/51
[2018-02-01 06:08] LABS: INTER. NORMALIZED RATIO 2.6
[2018-02-01 08:00] VITALS: BP 119/58
[2018-02-01] MEDS ORDERED: AMOX TR-K CLV1 EAC4 PO (10:03)
[2018-02-01] MEDS ORDERED: PREDNISONE10 MG PO (10:03)
== END 2018-02-01 12:06 | disposition home or self-care (01) | DRG 189 ==
LOC: EME → EDBD 21:15 → EME 21:15 → EDOF 01-29 02:11 → 4EAST 01-29 02:11 → ENRESERV 01-29 02:12 → 4EAST 01-29 03:00
PROVIDERS: Emergency Medicine; Hospitalist; Internal Medicine
DX: J96.21 Acute and chronic respiratory failure with hypoxia (principal); J44.1 Chronic obstructive pulmonary disease with (acute) exacerbation; E03.9 Hypothyroidism, unspecified; E66.2 Morbid (severe) obesity with alveolar hypoventilation; J15.9 Unspecified bacterial pneumonia; F17.200 Nicotine dependence, unspecified, uncomplicated; J96.22 Acute and chronic respiratory failure with hypercapnia; I11.0 Hypertensive heart disease with heart failure; I50.9 Heart failure, unspecified; J44.0 Chronic obstructive pulmonary disease with (acute) lower respiratory infection; I25.10 Atherosclerotic heart disease of native coronary artery without angina pectoris; E11.65 Type 2 diabetes mellitus with hyperglycemia; I27.20 Pulmonary hypertension, unspecified; F32.9 Major depressive disorder, single episode, unspecified; Y95 Nosocomial condition; E27.8 Other specified disorders of adrenal gland; E78.5 Hyperlipidemia, unspecified; R79.1 Abnormal coagulation profile; K21.9 Gastro-esophageal reflux disease without esophagitis; I25.2 Old myocardial infarction; G89.4 Chronic pain syndrome; Z91.19 Patient's noncompliance with other medical treatment and regimen; Z99.81 Dependence on supplemental oxygen; Z86.718 Personal history of other venous thrombosis and embolism; Z86.711 Personal history of pulmonary embolism; Z79.4 Long term (current) use of insulin; Z79.01 Long term (current) use of anticoagulants; Z68.45 Body mass index [BMI] 70 or greater, adult
CPT/HCPCS: 36600; 71045; 71046; 71275; 80048; 80053; 80202; 82803; 82948; 83605; 83880; 84484; 85025; 85027; 85610; 87040; 93005; 94640; 94640 76; 94760; 94799; 99202; 99281; 99285; J0456; J0692; J1815; J2543; J2920; J2930; J3370; J7030; J7050; J7512

== ENCOUNTER 2018-02-28 20:00 | Inpatient (IN) | payer OTHER ==
[~2018-02-28] VITALS: Ht 149.9 cm; Wt 146.0 kg
[2018-02-28 20:46] LABS: HEMATOCRIT 49.3 % (36.0-46.0); MCH 28.7 PG (29.0-34.0); MCHC 30.2 G/DL (30.0-36.0); PLATELET COUNT 232 K/uL (156-360); RBC DIS.WIDTH-CV 14.5 % (11.8-14.6); RBC DIS.WIDTH-SD 51.2 % (39-53); WHITE BLOOD COUNT 13.4 K/uL (4.1-10.2)
[2018-02-28 20:47] LABS: HEMOGLOBIN 14.9 G/DL (11.9-15.5); RED BLOOD COUNT 5.19 M/uL (3.80-5.20)
[2018-02-28 20:49] LABS: CHLORIDE 91 mEq/L (99-109); POTASSIUM 3.8 mEq/L (3.7-5.4); SODIUM 143 mEq/L (136-147)
[2018-02-28 20:51] LABS: GLUCOSE 200 mg/dL (70-99)
[2018-02-28 20:55] LABS: CREATININE 1.3 mg/dL (0.6-1.3); GFR ESTIMATE (CALCULATED) 47 mL/min/
[2018-02-28 20:56] LABS: UREA NITROGEN (BUN) 18 mg/dL (9-23)
[2018-02-28 20:59] LABS: CARBON DIOXIDE (BICARBONATE) > 40.0 mEq/L (20-31)
[2018-02-28 21:28] LABS: INTER. NORMALIZED RATIO 2.2
[2018-03-01 03:41] VITALS: BP 99/62
[2018-03-01 05:51] LABS: HEMATOCRIT 49.1 % (36.0-46.0); HEMOGLOBIN 14.5 G/DL (11.9-15.5); MCH 27.6 PG (29.0-34.0); MCHC 29.5 G/DL (30.0-36.0); MCV 93.3 FL (83-99); PLATELET COUNT 229 K/uL (156-360); RBC DIS.WIDTH-CV 14.4 % (11.8-14.6); RBC DIS.WIDTH-SD 49.4 % (39-53); RED BLOOD COUNT 5.26 M/uL (3.80-5.20); WHITE BLOOD COUNT 10.8 K/uL (4.1-10.2)
[2018-03-01 06:16] LABS: CHLORIDE 92 MEQ/L (99-109); CREATININE 1.2 MG/DL (0.6-1.3); GFR ESTIMATE (CALCULATED) 52 mL/min/; GLUCOSE 382 mg/dL (70-99); POTASSIUM 4.6 MEQ/L (3.7-5.4); SODIUM 141 MEQ/L (136-147); UREA NITROGEN (BUN) 22 mg/dL (9-23)
[2018-03-01 07:15] VITALS: BP 126/75
[2018-03-01] MEDS ORDERED: NITROGLYCERIN0.4 MG SL (11:08)
[2018-03-01] MEDS ORDERED: ATARAX,VISTARIL50 MG PO (11:12)
[2018-03-01] MEDS ORDERED: LOSARTAN POTASS25 MG PO (11:13)
[2018-03-01] MEDS ORDERED: EFFEXOR75 MG PO (11:17)
[2018-03-01] MEDS ORDERED: PREDNISONE20 MG PO (11:19)
[2018-03-01 11:28] VITALS: BP 135/69
[2018-03-01 15:19] VITALS: BP 121/69
[2018-03-01 19:58] VITALS: BP 121/87
[2018-03-01 23:12] VITALS: BP 133/76
[2018-03-02 03:37] VITALS: BP 127/68
[2018-03-02 07:03] VITALS: BP 115/66
[2018-03-02 11:00] VITALS: BP 98/56
[2018-03-02 11:50] LABS: COMMENTS - BLOOD GASES A+C+; O2 FLOW 2 L/MIN; SITE RR
[2018-03-02 11:51] LABS: BASE EXCESS 12.2 mEq/L (-3 to +3); BICARBONATE 38.4 mEq/L (22-26); CARBOXY HGB 1.5 % (0-5); DEVICE NC; METHEMOGLOBIN 0.4 % (0-1.5); PCO2 54 mm Hg (35-45); PO2 52 mm Hg (80-100); TOTAL RESP RATE 18 resp/min; pH 7.46 (7.35-7.45)
[2018-03-02 15:45] VITALS: BP 102/58
[2018-03-02 19:34] VITALS: BP 98/65
[2018-03-02 23:55] VITALS: BP 90/50
[2018-03-03 03:34] VITALS: BP 92/54
[2018-03-03 06:40] LABS: HEMATOCRIT 39.8 % (36.0-46.0); MCH 28.1 PG (29.0-34.0); MCHC 31.2 G/DL (30.0-36.0); PLATELET COUNT 230 K/uL (156-360); RBC DIS.WIDTH-CV 14.8 % (11.8-14.6); RBC DIS.WIDTH-SD 49.1 % (39-53); RED BLOOD COUNT 4.42 M/uL (3.80-5.20); WHITE BLOOD COUNT 12.2 K/uL (4.1-10.2)
[2018-03-03 06:53] LABS: CHLORIDE 90 MEQ/L (99-109); CREATININE 0.8 MG/DL (0.6-1.3); GFR ESTIMATE (CALCULATED) > 59 mL/min/; GLUCOSE 272 mg/dL (70-99); SODIUM 137 MEQ/L (136-147)
[2018-03-03 06:58] LABS: HEMOGLOBIN 12.4 G/DL (11.9-15.5); UREA NITROGEN (BUN) 34 mg/dL (9-23)
[2018-03-03 07:34] VITALS: BP 124/60
[2018-03-03] MEDS ORDERED: AMOX TR-K CLV1 EAC4 PO (10:47)
[2018-03-03] MEDS ORDERED: MYCOSTATIN 100,60 ML PO (10:49)
== END 2018-03-03 14:52 | disposition home or self-care (01) | DRG 189 ==
LOC: EME → EDBD 20:00 → 5EAST 03-01 01:39 → EDOF 03-01 01:39 → ENRESERV 03-01 01:42 → 5EAST 03-01 02:24 → EDOF 03-01 02:25 → ENRESERV 03-01 02:31 → 5EAST 03-01 03:21 → ENPENDDIS 03-03 → 5EAST 03-03 14:52
PROVIDERS: Hospitalist; Internal Medicine Pulmonary Disease; Physician Assistant
PROC: 5A09357 Assistance with Respiratory Ventilation, Less than 24 Consecutive Hours, Continuous Positive Airway Pressure (ICD-10-PCS; principal; 2018-03-02)
DX: J96.21 Acute and chronic respiratory failure with hypoxia (principal); J18.9 Pneumonia, unspecified organism; J44.1 Chronic obstructive pulmonary disease with (acute) exacerbation; J44.0 Chronic obstructive pulmonary disease with (acute) lower respiratory infection; Z68.44 Body mass index [BMI] 60.0-69.9, adult; E87.2 Acidosis; J20.9 Acute bronchitis, unspecified; I27.20 Pulmonary hypertension, unspecified; E66.01 Morbid (severe) obesity due to excess calories; E11.65 Type 2 diabetes mellitus with hyperglycemia; E78.5 Hyperlipidemia, unspecified; F17.210 Nicotine dependence, cigarettes, uncomplicated; G47.33 Obstructive sleep apnea (adult) (pediatric); K21.9 Gastro-esophageal reflux disease without esophagitis; I11.9 Hypertensive heart disease without heart failure; Z99.81 Dependence on supplemental oxygen; Z91.19 Patient's noncompliance with other medical treatment and regimen; E03.9 Hypothyroidism, unspecified; I25.10 Atherosclerotic heart disease of native coronary artery without angina pectoris; I25.2 Old myocardial infarction; Z82.5 Family history of asthma and other chronic lower respiratory diseases; Z86.711 Personal history of pulmonary embolism; Z95.5 Presence of coronary angioplasty implant and graft; B37.0 Candidal stomatitis; Z79.01 Long term (current) use of anticoagulants; F33.9 Major depressive disorder, recurrent, unspecified; F41.9 Anxiety disorder, unspecified; Z79.84 Long term (current) use of oral hypoglycemic drugs
CPT/HCPCS: 36600; 71045; 80048; 82948; 83605; 85027; 85610; 87040; 87070; 87077; 87186; 87205; 93005; 94640; 94760; 94799; 99281; 99285; J1815; J2930; J3475; J7512

== ENCOUNTER 2018-03-11 11:22 | Inpatient (IN) | payer OTHER ==
[~2018-03-11] VITALS: Ht 149.9 cm; Wt 148.6 kg
[~2018-03-11 11:22] MED LIST changes: +ATARAX,VISTARIL50 MG PO; +MYCOSTATIN 100,60 ML PO; +NITROGLYCERIN0.4 MG SL
[2018-03-11 12:21] LABS: SITE LR
[2018-03-11 12:22] LABS: DEVICE NC; O2 FLOW 4 L/MIN; TOTAL RESP RATE 23 resp/min
[2018-03-11 12:23] LABS: BASOPHIL (%) 0.2 % (0-1); EOSINOPHIL (%) 0.2 % (0-5); HEMATOCRIT 38.1 % (36.0-46.0); IMMATURE GRANULOCYTE (%) 0.8 % (0.0-0.7); LYMPHOCYTE (%) 4.7 % (15-42); LYMPHOCYTE COUNT 0.5 K/uL (1.0-2.8); MCH 28.8 PG (29.0-34.0); MCHC 31.5 G/DL (30.0-36.0); MCV 91.4 FL (83-99); MONOCYTE (%) 7.9 % (3-12); MONOCYTE COUNT 0.8 K/uL (0-0.8); NEUTROPHIL (%) 86.2 % (45-76); NEUTROPHIL COUNT 9.2 K/uL (1.8-6.4); PLATELET COUNT 185 K/uL (156-360); RBC DIS.WIDTH-CV 14.6 % (11.8-14.6); RBC DIS.WIDTH-SD 49.1 % (39-53); RED BLOOD COUNT 4.17 M/uL (3.80-5.20); WHITE BLOOD COUNT 10.7 K/uL (4.1-10.2)
[2018-03-11 12:23] LABS: BASE EXCESS 13.4 mEq/L (-3 to +3); BICARBONATE 43.8 mEq/L (22-26); CARBOXY HGB 4.9 % (0-5); METHEMOGLOBIN 1.1 % (0-1.5); PCO2 89 mm Hg (35-45); PO2 80 mm Hg (80-100)
[2018-03-11 12:24] LABS: COMMENTS - BLOOD GASES A+C+
[2018-03-11 12:32] LABS: CHLORIDE 90 mEq/L (99-109); SODIUM 136 mEq/L (136-147)
[2018-03-11 12:35] LABS: GLUCOSE 379 mg/dL (70-99); TOTAL PROTEIN 6.2 g/dL (6.4-8.3)
[2018-03-11 12:36] LABS: TOTAL BILIRUBIN 0.4 mg/dL (0.0-1.0)
[2018-03-11 12:38] LABS: ALKALINE PHOSPHATASE 95 IU/L (3-129); CREATININE 1.1 mg/dL (0.6-1.3); GFR ESTIMATE (CALCULATED) 57 mL/min/
[2018-03-11 12:39] LABS: UREA NITROGEN (BUN) 14 mg/dL (9-23)
[2018-03-11 12:40] LABS: AST (GOT) 11 IU/L (2-34); DIRECT BILIRUBIN 0.2 mg/dL (0.0-0.3)
[2018-03-11 12:41] LABS: ALT (GPT) 20 IU/L (3-49)
[2018-03-11 12:42] LABS: LIPASE 8 U/L (1.0-51.0)
[2018-03-11 12:44] LABS: TROP-I INTERPRETATION NEGATIVE; TROPONIN-I < 0.01 ng/mL (0.0-0.30)
[2018-03-11 13:08] LABS: APPEARANCE CLOUDY ((CLEAR)); BILIRUBIN NEGATIVE; BLOOD NEGATIVE; COLOR AMBER ((YELLOW)); GLUCOSE (STRIP) >=500; KETONES NEGATIVE; LEUKOCYTES LARGE; NITRITE NEGATIVE; PROTEIN (STRIP) 30; SPECIFIC GRAVITY 1.021 (1.000-1.030); UROBILINOGEN 0.2 MG/DL (0.2-1.0)
[2018-03-11 13:34] LABS: COARSE GRANULAR CASTS 0-5 /LPF; EPITHELIAL CELLS RARE /HPF; MUCUS NONE SEEN /LPF
[2018-03-11 13:35] LABS: BACTERIA RARE /HPF; RED BLOOD CELLS 0-5 /HPF (0-5); UCUL ADDED? YES; WHITE BLOOD CELLS TNTC /HPF (0-5)
[2018-03-11 16:50] VITALS: BP 136/61
[2018-03-11 18:41] LABS: PTT 37.9 SEC (25-37)
[2018-03-11 18:45] LABS: INTER. NORMALIZED RATIO 2.5
[2018-03-11 19:35] VITALS: BP 131/75
[2018-03-11 23:48] VITALS: BP 130/71
[2018-03-12 04:06] VITALS: BP 106/61
[2018-03-12 06:42] LABS: HEMATOCRIT 36.3 % (36.0-46.0); HEMOGLOBIN 11.6 G/DL (11.9-15.5); MCH 28.9 PG (29.0-34.0); MCV 90.3 FL (83-99); NRBC (%) 0.3 /100 WBC (0-0); PLATELET COUNT 224 K/uL (156-360); RBC DIS.WIDTH-CV 14.5 % (11.8-14.6); RBC DIS.WIDTH-SD 47.3 % (39-53); RED BLOOD COUNT 4.02 M/uL (3.80-5.20); WHITE BLOOD COUNT 6.5 K/uL (4.1-10.2)
[2018-03-12 06:48] LABS: INTER. NORMALIZED RATIO 2.4
[2018-03-12 07:06] LABS: CHLORIDE 93 MEQ/L (99-109); CREATININE 1.1 MG/DL (0.6-1.3); GFR ESTIMATE (CALCULATED) 57 mL/min/; GLUCOSE 376 mg/dL (70-99); POTASSIUM 4.5 MEQ/L (3.7-5.4); SODIUM 136 MEQ/L (136-147); UREA NITROGEN (BUN) 19 mg/dL (9-23)
[2018-03-12 07:55] VITALS: BP 136/69
[2018-03-12 11:38] VITALS: BP 121/80
[2018-03-12 16:20] VITALS: BP 126/71
[2018-03-12] MEDS ORDERED: NITROGLYCERIN0.4 MG SL (17:10)
[2018-03-12] MEDS ORDERED: FUROSEMIDE40 MG PO (17:12)
[2018-03-12] MEDS ORDERED: BRILINTA60 MG PO (17:15)
[2018-03-12] MEDS ORDERED: TRULICITY0.75 MG/0. SC (17:18)
[2018-03-12] MEDS ORDERED: ATORVASTATIN CA40 MG PO (17:22)
[2018-03-12] MEDS ORDERED: PANTOPRAZOLE SO40 MG PO (17:28)
[2018-03-12] MEDS ORDERED: DIAZEPAM2 MG PO (17:28)
[2018-03-12] MEDS ORDERED: WARFARIN SODIUM5 MG PO (17:30)
[2018-03-12] MEDS ORDERED: ENDOCET 5-3251 EACH PO (17:30)
[2018-03-12] MEDS ORDERED: LEVOTHYROXINE50 MCG PO (17:31)
[2018-03-12] MEDS ORDERED: VENLAFAXINE HC150 M1 PO (17:32)
[2018-03-12] MEDS ORDERED: JANUVIA25 M1 PO (17:32)
[2018-03-12] MEDS ORDERED: ATARAX,VISTARIL50 MG PO (17:35)
[2018-03-12] MEDS ORDERED: BUSPAR10 MG PO (17:36)
[2018-03-12] MEDS ORDERED: LEVOTHYROXINE200 MC1 PO (17:38)
[2018-03-12] MEDS ORDERED: ATROVENT 00.5 MG/2.5 IH (17:39)
[2018-03-12] MEDS ORDERED: TOPIRAMATE100 MG PO (17:40)
[2018-03-12] MEDS ORDERED: POTASSIUM CHLO20 ME1 PO (17:40)
[2018-03-12] MEDS ORDERED: LOPRESSOR25 MG PO (17:42)
[2018-03-12] MEDS ORDERED: EFFEXOR75 MG PO (17:42)
[2018-03-12] MEDS ORDERED: LOSARTAN POTASS25 MG PO (17:43)
[2018-03-12] MEDS ORDERED: RANEXA500 MG PO (17:43)
[2018-03-12] MEDS ORDERED: GABAPENTIN400 MG PO (17:44)
[2018-03-12] MEDS ORDERED: LATANOPROST2.5 ML BOTH EYES (17:45)
[2018-03-12] MEDS ORDERED: MULTI-VITAMIN1 EAC4 PO (17:53)
[2018-03-12] MEDS ORDERED: B-COMPLEX-VITA1 EACH PO (17:54)
[2018-03-12] MEDS ORDERED: VENTOLIN HFA18 GM IH (17:55)
[2018-03-12] MEDS ORDERED: LO-DOSE ASPIRIN81 M2 PO (17:56)
[2018-03-12] MEDS ORDERED: SYMBICORT60 INHALA1 IH (17:57)
[2018-03-12] MEDS ORDERED: CRANBERRY250 MG PO (17:58)
[2018-03-12 19:15] LABS: TROP-I INTERPRETATION NEGATIVE; TROPONIN-I < 0.01 ng/mL (0.0-0.30)
[2018-03-12 20:14] VITALS: BP 130/71
[2018-03-13] VITALS (8 sets, daily range): BP systolic 98–144; BP diastolic 55–87
[2018-03-13 05:50] LABS: BASOPHIL (%) 0.1 % (0-1); EOSINOPHIL (%) 0 % (0-5); HEMATOCRIT 36.5 % (36.0-46.0); HEMOGLOBIN 11.5 G/DL (11.9-15.5); IMMATURE GRANULOCYTE (%) 0.5 % (0.0-0.7); LYMPHOCYTE (%) 4.8 % (15-42); LYMPHOCYTE COUNT 0.5 K/uL (1.0-2.8); MCH 28.3 PG (29.0-34.0); MCHC 31.5 G/DL (30.0-36.0); MCV 89.7 FL (83-99); MONOCYTE (%) 3.6 % (3-12); MONOCYTE COUNT 0.4 K/uL (0-0.8); NEUTROPHIL COUNT 9.8 K/uL (1.8-6.4); PLATELET COUNT 230 K/uL (156-360); RBC DIS.WIDTH-CV 14.8 % (11.8-14.6); RBC DIS.WIDTH-SD 47.7 % (39-53); RED BLOOD COUNT 4.07 M/uL (3.80-5.20); WHITE BLOOD COUNT 10.7 K/uL (4.1-10.2)
[2018-03-13 06:16] LABS: CHLORIDE 97 MEQ/L (99-109); CREATININE 1.2 MG/DL (0.6-1.3); GFR ESTIMATE (CALCULATED) 52 mL/min/; GLUCOSE 310 mg/dL (70-99); POTASSIUM 3.7 MEQ/L (3.7-5.4); SODIUM 141 MEQ/L (136-147); UREA NITROGEN (BUN) 27 mg/dL (9-23)
[2018-03-13 06:24] LABS: INTER. NORMALIZED RATIO 3.9
[2018-03-14 04:44] VITALS: BP 112/61
[2018-03-14 05:58] LABS: WHITE BLOOD COUNT 8.1 K/uL (4.1-10.2)
[2018-03-14 05:59] LABS: BASOPHIL (%) 0 % (0-1); EOSINOPHIL (%) 0 % (0-5); HEMATOCRIT 32.5 % (36.0-46.0); HEMOGLOBIN 10.4 G/DL (11.9-15.5); IMMATURE GRANULOCYTE (%) 0.7 % (0.0-0.7); LYMPHOCYTE (%) 5.4 % (15-42); LYMPHOCYTE COUNT 0.4 K/uL (1.0-2.8); MCH 28.9 PG (29.0-34.0); MCV 90.3 FL (83-99); MONOCYTE (%) 3.3 % (3-12); MONOCYTE COUNT 0.3 K/uL (0-0.8); NEUTROPHIL (%) 90.6 % (45-76); NEUTROPHIL COUNT 7.4 K/uL (1.8-6.4); PLATELET COUNT 208 K/uL (156-360); RBC DIS.WIDTH-CV 14.9 % (11.8-14.6); RBC DIS.WIDTH-SD 47.9 % (39-53)
[2018-03-14 06:04] LABS: INTER. NORMALIZED RATIO 4.1
[2018-03-14 06:20] LABS: CHLORIDE 93 MEQ/L (99-109); CREATININE 1.1 MG/DL (0.6-1.3); GFR ESTIMATE (CALCULATED) 57 mL/min/; GLUCOSE 322 mg/dL (70-99); SODIUM 138 MEQ/L (136-147); UREA NITROGEN (BUN) 32 mg/dL (9-23)
[2018-03-14 07:33] VITALS: BP 103/61
[2018-03-14 15:28] VITALS: BP 105/58
[2018-03-14 20:21] VITALS: BP 97/53
[2018-03-15 00:54] VITALS: BP 109/59
[2018-03-15 05:48] LABS: BASOPHIL (%) 0 % (0-1); EOSINOPHIL (%) 0 % (0-5); HEMOGLOBIN 10.8 G/DL (11.9-15.5); IMMATURE GRANULOCYTE (%) 0.6 % (0.0-0.7); LYMPHOCYTE (%) 8.4 % (15-42); LYMPHOCYTE COUNT 0.6 K/uL (1.0-2.8); MCH 28.6 PG (29.0-34.0); MCHC 31.8 G/DL (30.0-36.0); MCV 90.2 FL (83-99); MONOCYTE (%) 6.1 % (3-12); MONOCYTE COUNT 0.4 K/uL (0-0.8); NEUTROPHIL (%) 84.9 % (45-76); NEUTROPHIL COUNT 5.8 K/uL (1.8-6.4); PLATELET COUNT 205 K/uL (156-360); RBC DIS.WIDTH-CV 14.6 % (11.8-14.6); RBC DIS.WIDTH-SD 47.7 % (39-53); RED BLOOD COUNT 3.77 M/uL (3.80-5.20); WHITE BLOOD COUNT 6.8 K/uL (4.1-10.2)
[2018-03-15 06:06] LABS: CHLORIDE 95 MEQ/L (99-109); CREATININE 1.1 MG/DL (0.6-1.3); GFR ESTIMATE (CALCULATED) 57 mL/min/; GLUCOSE 296 mg/dL (70-99); POTASSIUM 4.1 MEQ/L (3.7-5.4); SODIUM 137 MEQ/L (136-147); UREA NITROGEN (BUN) 30 mg/dL (9-23)
[2018-03-15 06:44] LABS: INTER. NORMALIZED RATIO 2.5
[2018-03-15 08:10] VITALS: BP 118/67
[2018-03-15] MEDS ORDERED: OMNICEF300 MG PO (09:46)
[2018-03-15] MEDS ORDERED: PREDNISONE10 MG PO (12:10)
== END 2018-03-15 13:54 | disposition home or self-care (01) | DRG 189 ==
LOC: EME 11:22 → 5SOUTH 15:10 → EDOF 15:10 → ENRESERV 15:12 → 5SOUTH 16:24 → ENPENDDIS 03-15 09:58 → 5SOUTH 03-15 13:54
PROVIDERS: Emergency Medicine; Internal Medicine; Student in an Organized Health Care Education/Training Program
DX: J96.21 Acute and chronic respiratory failure with hypoxia (principal); J44.1 Chronic obstructive pulmonary disease with (acute) exacerbation; N39.0 Urinary tract infection, site not specified; E87.3 Alkalosis; H40.9 Unspecified glaucoma; J96.22 Acute and chronic respiratory failure with hypercapnia; I11.0 Hypertensive heart disease with heart failure; R07.9 Chest pain, unspecified; J44.0 Chronic obstructive pulmonary disease with (acute) lower respiratory infection; I27.20 Pulmonary hypertension, unspecified; F17.210 Nicotine dependence, cigarettes, uncomplicated; I25.10 Atherosclerotic heart disease of native coronary artery without angina pectoris; I50.9 Heart failure, unspecified; G47.33 Obstructive sleep apnea (adult) (pediatric); E78.5 Hyperlipidemia, unspecified; E66.2 Morbid (severe) obesity with alveolar hypoventilation; E11.65 Type 2 diabetes mellitus with hyperglycemia; E03.9 Hypothyroidism, unspecified; F41.9 Anxiety disorder, unspecified; F32.9 Major depressive disorder, single episode, unspecified; Z79.01 Long term (current) use of anticoagulants; Z86.711 Personal history of pulmonary embolism; Z79.4 Long term (current) use of insulin; Z99.81 Dependence on supplemental oxygen; Z91.19 Patient's noncompliance with other medical treatment and regimen; Z79.82 Long term (current) use of aspirin; I25.2 Old myocardial infarction; Z68.44 Body mass index [BMI] 60.0-69.9, adult; Z74.01 Bed confinement status; Z79.899 Other long term (current) drug therapy
CPT/HCPCS: 36600; 71045; 80048; 80076; 81003; 82948; 83605; 83690; 83880; 84484; 85025; 85027; 85610; 85730; 87040; 87086; 93005; 93306; 94640; 94799; 99281; 99285; J0456; J0696; J1815; J1940; J2405; J2930; J7040

== ENCOUNTER 2018-04-14 11:16 | Emergency (ER) | payer OTHER ==
[~2018-04-14] VITALS: Ht 149.9 cm; Wt 145.0 kg
[~2018-04-14 11:16] MED LIST changes: +B-COMPLEX-VITA1 EACH PO; +LEVOTHYROXINE50 MCG PO; +PANTOPRAZOLE SO40 MG PO
[2018-04-14 12:39] LABS: BASOPHIL (%) 0.2 % (0-1); EOSINOPHIL (%) 0.1 % (0-5); IMMATURE GRANULOCYTE (%) 1.1 % (0.0-0.7); LYMPHOCYTE (%) 8.3 % (15-42); LYMPHOCYTE COUNT 0.8 K/uL (1.0-2.8); MCH 29.1 PG (29.0-34.0); MCHC 30.8 G/DL (30.0-36.0); MCV 94.4 FL (83-99); MONOCYTE (%) 6.8 % (3-12); MONOCYTE COUNT 0.7 K/uL (0-0.8); NEUTROPHIL (%) 83.5 % (45-76); PLATELET COUNT 262 K/uL (156-360); RBC DIS.WIDTH-CV 15.4 % (11.8-14.6); RBC DIS.WIDTH-SD 53.2 % (39-53); RED BLOOD COUNT 4.13 M/uL (3.80-5.20); WHITE BLOOD COUNT 9.6 K/uL (4.1-10.2)
[2018-04-14 12:46] LABS: INTER. NORMALIZED RATIO 2.8
[2018-04-14 12:48] LABS: PTT 35.1 SEC (25-37)
[2018-04-14 13:03] LABS: CHLORIDE 92 mEq/L (99-109); POTASSIUM 3.8 mEq/L (3.7-5.4); SODIUM 139 mEq/L (136-147)
[2018-04-14 13:05] LABS: GLUCOSE 376 mg/dL (70-99)
[2018-04-14 13:09] LABS: CREATININE 1.2 mg/dL (0.6-1.3); GFR ESTIMATE (CALCULATED) 52 mL/min/
[2018-04-14 13:10] LABS: UREA NITROGEN (BUN) 15 mg/dL (9-23)
[2018-04-14 13:13] LABS: TROP-I INTERPRETATION NEGATIVE; TROPONIN-I < 0.01 ng/mL (0.0-0.30)
[2018-04-14] MEDS ORDERED: PREDNISONE50 MG PO (14:05)
[2018-04-14] MEDS ORDERED: ZITHROMAX Z-PA250 MG PO (14:05)
[2018-04-14 15:28] VITALS: BP 90/61
== END 2018-04-14 15:30 | disposition home or self-care (01) ==
LOC: EME 11:16
PROVIDERS: Emergency Medicine
DX: J44.1 Chronic obstructive pulmonary disease with (acute) exacerbation (principal); J40 Bronchitis, not specified as acute or chronic; F17.210 Nicotine dependence, cigarettes, uncomplicated; E03.9 Hypothyroidism, unspecified; E78.5 Hyperlipidemia, unspecified; E11.9 Type 2 diabetes mellitus without complications; I25.2 Old myocardial infarction; Z79.01 Long term (current) use of anticoagulants; Z79.82 Long term (current) use of aspirin; Z86.711 Personal history of pulmonary embolism; E66.9 Obesity, unspecified; Z68.44 Body mass index [BMI] 60.0-69.9, adult
CPT/HCPCS: 71045; 80048; 83880; 84484; 85025; 85610; 85730; 93005; 99281; 99285; J2930